=== PATIENT | male | born 1985 | race Caucasian/White ===

== ENCOUNTER 2018-09-01 18:28 | Emergency (ER) | payer MEDICARE, MEDICAID ==
[~2018-09-01] VITALS: Ht 198.1 cm; Wt 117.9 kg
[~2018-09-01 18:28] MED LIST: BENZ100C18 PO; BUDE6HFA IH; CETI10CA PO; CHOL378P PO; CLON1TAB36 PO; CRAN450T9 PO; DIVA500T PO; EPIN0.3P2 IM; ERYT500T8 PO; ESOM20SU PO; FLUT1DIS28 IH; HYDR-1231 PO; IPR14IN INH; LTH150C PO; MELA1TAB20 PO; MMT17NA NS; MNTL10T PO; MULT-557 PO; MULT-974 PO; PANT20TA2 PO; PRD20T PO; SMTR50T PO; SRTR100T PO; TRAM50TA2 PO; TRAZ150T42 PO; TRET15GE2 TP
--- OUTSIDE RECORDS SUMMARY | 2018-09-01 18:35 | XMS REPORT ---
Author Author TED HARDEN [facility] e[employer] Address Unknown Phone Unavailable Care Team Providers Care Show Card Writer Name Role Phone TED HARDEN Unavailable Allergies No Known Allergies Problems Problem Type Condition Code Onset Dates Condition Status Problem Asperger's disorder F84.5 Active Assessment Depressive disorder, not elsewhere classified F32.9 Active Problem Depressive disorder, not elsewhere classified F32.9 Active Assessment Asperger's disorder F84.5 Active Medications No Known Medications Procedures Procedure Coding System Code Date Psychotherapy, patient &/family, 45 minutes, established patient CPT-4 62247 Oct 02, 2015 [facility] VISIT MENT[facility] ESTAB PT CPT-4 G0470 Oct 02, 2015 Results No Known Results Summary Purpose eClinicalWorks Submission
--- OUTSIDE RECORDS SUMMARY | 2018-09-01 18:35 | XMS REPORT ---
Author Author KIM Evans Organization [facility] Address Unknown Care Team Providers Care [employer] Name Role Phone KIM Evans Unavailable PROBLEMS Type Condition ICD9-CM Code [id number] Code Onset Dates Condition Status SNOMED Code Problem Generalized anxiety disorder F41.1 Active 04229500 Problem Anxiety disorder, unspecified F41.9 Active 874392517 Problem Depressive disorder, not elsewhere classified F32.9 Active 03282762 Problem Encounter for dental examination Z01.20 Active 141214142 Problem Asperger's disorder F84.5 Active [id number] ALLERGIES No Information SOCIAL HISTORY Never Assessed PLAN OF CARE VITAL SIGNS MEDICATIONS Unknown Medications RESULTS No Results PROCEDURES No Known procedures IMMUNIZATIONS No Known Immunizations MEDICAL (GENERAL) HISTORY Type Description Date Medical History unspecified mood disorder Medical History anxiety Medical History bi-polar disorder Medical History autistic Surgical History scope of left knee - zafuta 2013 Surgical History scope of right knee - zafuta 2014 Surgical History colonoscopy 2014
--- OUTSIDE RECORDS SUMMARY | 2018-09-01 18:35 | XMS REPORT ---
Author Author SUZANNE SOUSA [facility] Address [address] [place] [address] Phone Unavailable Care Team Providers Care Process Engineering Intern Name Role Phone SUZANNE SOUSA Unavailable Unavailable PROBLEMS Type Condition ICD9-CM Code LBL38-IU Code Onset Dates Condition Status SNOMED Code Problem Generalized anxiety disorder F41.1 Active 74259662 Problem Anxiety disorder, unspecified F41.9 Active 749531633 Problem Depressive disorder, not elsewhere classified F32.9 Active 23691543 Problem Asperger's disorder F84.5 Active 32483363 ALLERGIES Substance Reaction Event Type Date Status Sulfacetamide-Prednisolone Unknown Drug Allergy Dec, Active Aspirin Unknown Drug Allergy Dec, Active Spectazole Unknown Drug Allergy Dec, Active Sulfa Drug dizziness Non Drug Allergy Dec, Active Bee Venom (honey Bee) Unknown Non Drug Allergy Dec, Active ENCOUNTERS Encounter Location Date Diagnosis [facility] [id number] [place] [address] [id number] Dec, Encounter for dental exam and cleaning w/o abnormal findings Z01.20 [place] [id number] [place] [address] 01859- 7555 Sep, Asperger's disorder F84.5 ; Depressive disorder, not elsewhere classified F32.9 and Anxiety disorder, unspecified F41.9 [place] [id number] [place] [address] 34440- 5312 Jun, Asperger's disorder F84.5 ; Depressive disorder, not elsewhere classified F32.9 and Anxiety disorder, unspecified F41.9 [facility] [id number] [place] [address] 49072- 9823 Jun, Asperger's disorder F84.5 [facility] [id number] [place] [address] 48766- 3126 Apr, Asperger's disorder F84.5 ; Depressive disorder, not elsewhere classified F32.9 and Anxiety disorder, unspecified F41.9 [facility] [id number] [place] [address] 68039- 9066 Apr, [facility] [id number] [place] [address] 68810- 8890 Apr, [facility] [id number] [place] [address] 01543- 0951 Dec, Asperger's disorder F84.5 ; Depressive disorder, not elsewhere classified F32.9 and Anxiety disorder, unspecified F41.9 [facility] [id number] [place] [address] 75068- 1229 Dec, Asperger's disorder F84.5 [facility] [id number] [place] [address] 59956- 4209 Nov, [facility] [id number] [place] [address] 59932- 5881 Nov, [facility] [id number] [place] [address] [id number] Aug, Dental examination Z01.20 [facility] [id number] [place] [address] 62329- 1043 Jul, Asperger's disorder F84.5 and Major depressive disorder, recurrent episode with anxious distress F33.9 [facility] [id number] [place] [address] 17216- 1997 Jun, [facility] [id number] [place] [address] [id number] May, Dental examination Z01.20 [facility] [id number] [place] [address] 70009- 4787 Apr, Asperger's disorder F84.5 ; Depressive disorder, not elsewhere classified F32.9 and Anxiety disorder, unspecified F41.9 [facility] [id number] [place] [address] 55331- 4399 Feb, [facility] [address], [place] [address] 6254 January, Asperger's disorder F84.5 ; Depressive disorder, not elsewhere classified F32.9 and Anxiety disorder, unspecified F41.9 [facility] [id number] [place] [address] 98923- 3420 January, Asperger's disorder F84.5 ; Depressive disorder, not elsewhere classified F32.9 and Anxiety disorder, unspecified F41.9 [facility] [id number] [place] [address] 50053- 9055 Dec, Depressive disorder, not elsewhere classified F32.9 and Asperger's disorder F84.5 [facility] [address] [id number] Nov, Encounter for dental examination Z01.20 [facility] [id number] [place] [address] 48736- 7019 Nov, Depressive disorder, not elsewhere classified F32.9 and Asperger's disorder F84.5 [facility] [id number] [place] [address] 08040- 6989 Nov, Depressive disorder, not elsewhere classified F32.9 and Asperger's disorder F84.5 [facility] [address], [place] [address]- 9802 Oct, [facility] [id number] [place] [address] 87812- 9919 Oct, [facility] [id number] [place] [address] 92520- 7539 Oct, [facility] [id number] [place] [address] 11167- 8250 Oct, [facility] [address], [place] [address]- 4025 Oct, Asperger's disorder F84.5 ; Depressive disorder, not elsewhere classified F32.9 and Anxiety disorder, unspecified F41.9 [facility] [id number], [place] [address]- 2471 Oct, [facility] [id number] [place] [address] 23593- 9336 Oct, [facility] [id number] [place] [address] 25081- 8661 Oct, Depressive disorder, not elsewhere classified F32.9 and Asperger's disorder F84.5 [facility] [id number] [place] [address] 69148- 4743 Sep, [facility] [id number] [place] [address] 83821- 6178 Sep, Depressive disorder, not elsewhere classified F32.9 and Asperger's disorder F84.5 [facility] [id number] [place] [address] 00763- 8838 Aug, [facility] [id number] [place] [address] 76105- 4338 Aug, Depressive disorder, not elsewhere classified F32.9 and Asperger's disorder F84.5 [facility] [address], [place] [address]- 7997 Aug, [facility] [address], [place] [address]- 2490 Aug, Asperger's disorder F84.5 ; Depressive disorder, not elsewhere classified F32.9 and Anxiety disorder, unspecified F41.9 [facility] [id number], [place] [address]- 0497 Aug, [facility] [id number] [place] [address] 98282- 6712 Aug, Depressive disorder, not elsewhere classified F32.9 and Asperger's disorder F84.5 [facility] [id number] [place] [address] 05122- 0862 Jul, Depressive disorder, not elsewhere classified F32.9 ; Asperger's disorder F84.5 and Anxiety disorder, unspecified F41.9 [facility] [id number] [place] [address] 13878- 7628 Jul, Depressive disorder, not elsewhere classified F32.9 and Asperger's disorder F84.5 [facility] [id number] [place] [address] 78769- 8277 Jun, Depressive disorder, not elsewhere classified F32.9 and Asperger's disorder F84.5 [facility] [id number] [place] [address] 338851- 9601 Jun, Depressive disorder, not elsewhere classified F32.9 and Asperger's disorder F84.5 [facility] [id number] [place] [address] [id number] May, Dental examination V72.2 [facility] [id number] [place] [address] 88518- 9952 17 May, 2015 Depressive disorder, not elsewhere classified 311 and Asperger's disorder 299.80 [facility] [id number] [place] [address] 61733- 1710 May, [facility] [id number] [place] [address] 85356- 7656 May, Depressive disorder, not elsewhere classified 311 and Asperger's disorder 299.80 [facility] [id number] [place] [address] 81640- 2449 Apr, Bipolar disorder, unspecified 296.80 and Generalized anxiety disorder 300.02 [facility] [id number] [place] [address] 38814- 2548 Apr, [facility] [id number] [place] [address] 16660- 1675 Apr, Depressive disorder, not elsewhere classified 311 and Asperger's disorder 299.80 [facility] [address] [facility] [id number] [address]- 6630 Mar, [facility] [address] 2630 Mar, Depressive disorder, not elsewhere classified 311 and Asperger's disorder 299.80 [facility] [id number], [place] [address]- 6251 Mar, [facility] [id number], [place] [address]- 8830 Feb, [facility] [id number] 1324 Feb, Depressive disorder, not elsewhere classified 311 and Asperger's disorder 299.80 [facility] [address], [place] [address]- 4640 January, Depressive disorder, not elsewhere classified 311 and Asperger's disorder 299.80 [facility] [address], [place] [address]- 2760 January, Bipolar disorder, unspecified 296.80 and Generalized anxiety disorder 300.02 [facility] [address], [place] [address]- 3882 January, [facility] [address], [place] [address]- 4466 Dec, [facility] [address], [place] [address]- 3922 Dec, [facility] [id number], [place] [address]- 8500 Nov, [facility] [address] [address] 6616 Nov, [facility] [id number], [place] [address]- 0061 Nov, [facility] [address], [place] [address]- 7966 Nov, [facility] [place] [facility] [address] [id number] [place] [address]- 6707 Nov, [facility] [place] [facility] [address] [id number] [place] [address]- 4656 Nov, [facility] [place] [facility] [address] [id number] [place] [address]- 3656 Oct, [facility] [place] [facility] [address] [id number] [place] [address]- 8952 Oct, [facility] [place] [facility] [address] [id number] [place] [address]- 4313 Oct, [facility] [place] [facility] [address] [id number] [place] [address]- 8457 Oct, [facility] [place] [facility] [address] [id number] [place] [address]- 8532 Oct, [facility] [place] [facility] [address] [id number] [place] [address]- 7386 Oct, [facility] [place] [facility] [address] [id number] [place] [address]- 2485 Sep, [facility] [place] [facility] [address] [id number] [place] [address]- 1981 Sep, [facility] [place] [facility] [address] [id number] [place] [address]- 5170 Sep, [facility] [place] [facility] [address] [id number] [place] [address]- 4794 Sep, [facility] [place] [facility] [address] [id number] [place] [address]- 3693 Sep, [facility] [place] [facility] [address] [id number] [place] [address]- 7057 Sep, [facility] [place] [facility] [address] [id number] [place] [address]- 8080 Aug, [facility] [place] [facility] [address] [id number] [place] [address]- 6391 Aug, [facility] [place] [facility] [address] [id number] [place] [address]- 9600 Aug, [facility] [place] [facility] [address] [id number] [place] [address]- 8896 Aug, [facility] [place] [facility] [address] [id number] [place] [address]- 4722 Aug, [facility] [place] [facility] [address] [id number] [place] [address]- 1022 Aug, [facility] [place] [facility] [address] [id number] [place] [address]- 6974 Aug, [facility] [place] [facility] [address] [id number] [place] [address]- 9894 Aug, [facility] [place] [facility] [address] [id number] [place] [address]- 8226 Jul, [facility] [place] [facility] [address] [id number] [place] [address]- 5272 Jul, [facility] [place] [facility] [address] [id number] [place] [address]- 8699 Jul, [facility] [place] [facility] [address] [id number] [place] [address]- 2086 Jul, [facility] [place] [facility] [address] [id number] [place] [address]- 2844 Jun, [facility] [place] [facility] [address] [id number] [place] [address]- 9978 Jun, [facility] [place] [facility] [address] [id number] [place] [address]- 6117 Jun, [facility] [place] [facility] [address] [id number] [place] [address]- 6433 Jun, [facility] [place] [facility] [address] [id number] [place] [address]- 8417 Jun, [facility] [place] [facility] [address] [id number] [place] [address]- 7658 Jun, [facility] [place] [facility] [address] [id number] [place] [address]- 4761 May, [facility] [place] [facility] [address] [id number] [place] [address]- 1851 May, [facility] [place] [facility] [address] [id number] [place] [address]- 9758 May, [facility] [place] [facility] [address] [id number] [place] [address]- 3213 May, [facility] [place] [facility] [address] [id number] [place] [address]- 7302 Apr, [facility] [place] [facility] [address] [id number] [place] [address]- 9744 Apr, [facility] [place] [facility] [address] [id number] [place] [address]- 3965 Apr, [facility] [place] [facility] [address] [id number] [place] [address]- 0528 Apr, [facility] [place] [facility] [address] [id number] [place] [address]- 3803 Apr, [facility] [place] [facility] [address] [id number] [place] [address]- 8838 Apr, [facility] [place] [facility] [address] [id number] [place] [address]- 4239 Mar, [facility] [place] [facility] [address] [id number] [place] [address]- 4187 Mar, [facility] [place] [facility] [address] [id number] [place] [address]- 0170 Mar, [facility] [place] [facility] [address] [id number] [place] [address]- 0828 Mar, [facility] [place] [facility] [address] [id number] [place] [address]- 1057 Mar, [facility] [place] [facility] [address] [id number] [place] 3954 Mar, [facility] [place] [facility] [address] [id number] [place] [address]- 9144 Mar, [facility] [place] [facility] [address] [id number] [place] [address]- 0921 Mar, [facility] [place] [facility] [address] [id number] [place] [address]- 2839 Feb, [facility] [place] [facility] [address] [id number] [place] [address]- 8988 Feb, [facility] [place] [facility] [address] [id number] [place] [address]- 0066 Feb, [facility] [place] [facility] [address] [id number] [place] [address]- 1160 Feb, [facility] [place] [facility] [address] [id number] [place] [address]- 5059 January, [facility] [place] [facility] [address] [id number] [place] [address]- 6834 January, [facility] [place] [facility] [address] [id number] [place] [address]- 4112 January, [facility] [place] [facility] [address] [id number] [place] [address]- 7800 January, [facility] [place] [facility] [address] [id number] [place] [address]- 9168 January, [facility] [place] [facility] [address] [id number] [place] [address]- 7367 January, [facility] [place] [facility] [address] [id number] [place] [address]- 3182 Dec, [facility] [place] [facility] [address] [id number] [place] [address]- 4787 Dec, [facility] [place] [facility] [address] [id number] [place] [address]- 2157 Dec, [facility] [place] [facility] [address] [id number] [place] [address]- 1288 Dec, [facility] [place] [facility] [address] [id number] [place] [address]- 7689 Dec, [facility] [place] [facility] [address] [id number] [place] [address]- 8912 Dec, [facility] [place] [facility] [address] [id number] [place] [address]- 7877 Dec, [facility] [place] [facility] [address] [id number] [place] [address]- 6048 Dec, [facility] [place] [facility] [address] [id number] [place] [address]- 5070 Nov, [facility] [place] [facility] [address] [id number] [place] [address]- 4472 Nov, [facility] [place] [facility] [address] [id number] [place] [address]- 3120 Nov, [facility] [place] [facility] [address] [id number] [place] [address]- 8360 Nov, [facility] [place] [facility] [address] [id number] [place] [address]- 6372 Nov, [facility] [place] [facility] [address] [id number] [place] [address]- 6867 Nov, [facility] [place] [facility] [address] [id number] [place] [address]- 6807 Nov, [facility] [place] [facility] [address] [id number] [place] [address]- 0130 Nov, [facility] [place] [facility] [address] [id number] [place] [address]- 5541 Oct, [facility] [place] [facility] [address] [id number] [place] [address]- 8429 Oct, [facility] [address] [id number] [place] [address]- 6326 Sep, [facility] [place] [facility] [address] [id number] [place] [address]- 3008 Sep, [facility] [place] [facility] [address] [id number] [place] [address]- 1976 Sep, [facility] [place] [facility] [address] [id number] [place] [address]- 2963 Sep, [facility] [place] [facility] [address] [id number] [place] [address]- 8580 Sep, [facility] [place] [facility] [address] [id number] [place] [address]- 5606 Sep, [facility] [place] [facility] [address] [id number] [place] [address]- 6658 Aug, [facility] [place] [facility] [address] [id number] [place] [address]- 4151 Aug, [facility] [place] [facility] [address] [id number] [place] [address]- 7121 Aug, [facility] [place] [facility] [address] [id number] [place] [address]- 0053 Aug, [facility] [place] [facility] [address] [id number] [place] [address]- 1389 Aug, [facility] [place] [facility] [address] [id number] [place] [address]- 3015 Aug, [facility] [place] [facility] [address] [id number] [place] [address]- 3745 Jul, [facility] [place] [facility] [address] [id number] [place] [address]- 9681 Jul, [facility] [place] [facility] [address] [id number] [place] [address]- 9282 Jul, [facility] [place] [facility] [address] [id number] [place] [address]- 6858 Jul, [facility] [address] [id number] [place] [address]- 8653 Jul, [facility] [place] [facility] [address] [id number] [place] [address]- 3199 Jul, [facility] [address] [id number] [place] [address]- 4753 Jul, [facility] [place] [facility] [address] [id number] [place] [address]- 7532 Jul, [facility] [address] [id number] [place] [address]- 8532 Jun, [facility] [place] [facility] [address] [id number] [place] [address]- 8107 Jun, [facility] [place] [facility] [address] [id number] [place] [address]- 1737 Jun, [facility] [address] [id number] [place] [address]- 7021 Jun, [facility] [place] [facility] [address] [id number] [place] [address]- 0029 Jun, [facility] [address] [id number] [place] [address]- 7079 Jun, [facility] [place] [facility] [address] [id number] [place] [address]- 2701 23 May, 2013 [facility] [place] [facility] [address] [id number] [place] [address]- 6179 19 May, 2013 [facility] [place] [facility] [address] [id number] [place] [address]- 9195 06 May, 2013 [facility] [place] [facility] [address] [id number] [place] [address]- 5392 May, [facility] [place] [facility] [address] [id number] [place] [address]- 4413 Apr, [facility] [address] [id number] [place] [address]- 5418 Apr, [facility] [place] [facility] [address] [id number] [place] [address]- 7558 Apr, [facility] [place] [facility] [address] [id number] [place] [address]- 8790 Mar, [facility] [place] [facility] [address] [id number] [place] [address]- 3692 Mar, [facility] [address] [id number] [place] [address]- 9211 Mar, [facility] [place] [facility] [address] [id number] [place] [address]- 5123 Mar, [facility] [place] [facility] [address] [id number] [place] [address]- 5640 Feb, [facility] [place] [facility] [address] [id number] [place] [address]- 5940 Feb, [facility] [place] [facility] [address] [id number] [place] [address] Feb, [facility] [place] [facility] [address] [id number] [place] [address] Feb, [facility] [place] [facility] [address] [id number] [place] [address] Feb, [facility] [place] [facility] [address] [id number] [place] [address] January, [facility] [place] [facility] [address] [id number] [place] [address] January, [facility] [place] [facility] [address] [id number] [place] [address] January, [facility] [place] [facility] [address] [id number] [place] [address] January, [facility] [place] [facility] [address] [id number], [place] [address] Dec, [facility] [address] [id number] [place] [address] Dec, [facility] [place] [facility] [address] [facility] [id number] [place] [address] Dec, [facility] [place] [facility] [address] [facility] [id number] [place] [address] Nov, [facility] [place] [facility] [address] [id number] [place] [address] Nov, [facility] [place] [facility] [address] [id number] [place] [address] Nov, [facility] [place] [facility] [address] [id number] [place] [address] Oct, [facility] [address] [id number] [place] [address] Oct, [facility] [place] [facility] [address] [facility] [id number] [place] [address] Oct, [facility] [place] [facility] [address] [id number] [place] [address] Oct, [facility] [place] [facility] [address] [id number] [place] [address] Oct, [facility] [place] [facility] [address] [id number] [place] [address] Oct, [facility] [place] [facility] [address] [facility] [id number] [place] [address] Oct, [facility] [place] [facility] [address] [facility] [id number] [place] [address] Sep, [facility] [place] [facility] [address] [facility] [id number] [place] [address] Sep, [facility] [place] [facility] [address] [facility] [id number] [place] [address] Sep, [facility] [place] [facility] [address] [id number] [place] [address] Sep, [facility] [place] [facility] [address] [id number] [place] [address] Sep, [facility] [place] [facility] [address] [id number] [place] [address] Jul, [facility] [place] [facility] [address] [id number] [place] [address] Jul, [facility] [place] [facility] [address] [id number] [place] [address] Jul, [facility] [place] [facility] [address] [id number] [place] [address] Jul, [facility] [place] [facility] [address] [facility] [id number] [place] [address] Jul, [facility] [place] [facility] [address] [id number], [place] [address] Jul, [facility] [place] [facility] [address] [facility] [id number] [place] [address] Jul, [facility] [place] [facility] [address] [facility] [id number], [place] [address] Jun, [facility] [place] [facility] [address] [facility] [id number], [place] [address] Jun, [facility] [place] [facility] [address] [id number], [place] [address] Jun, [facility] [place] [facility] [address] [id number], [place] [address] Jun, [facility] [place] [facility] [address] [id number], [place] [address] Jun, [facility] [place] [facility] [address] [facility] [id number], [place] [address] 15 Jun, 2012 [facility] [place] [facility] [address] [id number], [place] [address] Jun, [facility] [place] [facility] [address] [id number] [place] [address] Jun, [facility] [place] [facility] [address] [id number] [place] [address] May, [facility] [place] [facility] [address] [id number] [place] [address] May, [facility] [place] [facility] [address] [id number] [place] [address] Apr, [facility] [place] [facility] [address] [id number] [place] [address] Apr, [facility] [place] [facility] [address] [id number] [place] [address] Apr, [facility] [place] [facility] [address] [id number] [place] [address] Apr, [facility] [place] [facility] [address] [id number] [place] [address] Mar, [facility] [place] [facility] [address] [id number] [place] [address] Mar, [facility] [place] [facility] [address] [id number] [place] [address] Feb, [facility] [place] [facility] [address] [id number] [place] [address] Feb, [facility] [place] [facility] [address] [id number] [place] [address] Feb, [facility] [place] [facility] [address] [id number] [place] [address] Feb, [facility] [place] [facility] [address] [id number] [place] [address] Feb, [facility] [place] [facility] [address] [facility] [id number] [place] [address] January, [facility] [place] [facility] [address] [id number] [place] [address] January, [facility] [address] [id number] [place] [address] January, [facility] [place] [facility] [address] [id number] [place] [address] January, [facility] [address] [id number] [place] [address] Dec, [facility] [place] [facility] [address] [id number] [place] [address] Dec, [facility] [place] [facility] [address] [id number] [place] [address] Dec, [facility] [place] [facility] [address] [id number] [place] [address] Nov, [facility] [place] [facility] [address] [id number] [place] [address] Oct, [facility] [address] [id number] [place] [address] Oct, [facility] [place] [facility] [address] [id number] [place] [address] Sep, [facility] [place] [facility] [address] [id number] [place] [address] Sep, [facility] [place] [facility] [address] [id number] [place] [address] Sep, [facility] [place] [facility] [address] [id number] [place] [address] Aug, [facility] [place] [facility] [address] [id number] [place] [address] Aug, [facility] [place] [facility] [address] [id number] [place] [address] Aug, [facility] [place] [facility] [address] [id number] [place] [address] Aug, [facility] [address] [facility] [id number], [place] [address] Jul, [facility] [address] [facility] [id number], [place] [address] Jul, [facility] [address] [facility] [id number], [place] [address] Jun, [facility] [id number], [place] [address] Jun, [facility] [address] [facility] [id number], [place] [address] Aug, [facility] [address] [facility] [id number], [place] [address] Jul, IMMUNIZATIONS No Known Immunizations SOCIAL HISTORY Never Assessed REASON FOR VISIT ADULT OUTREACH [facility] PLAN OF CARE Activity Details Follow Up 3 Months Reason:ON SITE RECALL VITAL SIGNS MEDICATIONS Medication Instructions Dosage Frequency Start Date End Date Duration Status ZyrTEC 10 mg 1 Tablet by Oral route 1 time per day Mar, Active Neosporin 1.75-30449-.025 Ophthalmic every 4 hrs 1 null into affected eye 4h Active Tussin 100 MG/5ML Orally every 4 hrs 10 ml as needed 4h Active Tessalon 200 mg 1 Capsule by Oral route 3 times per day PRN cough Oct, Active Milk of Magnesia 400 MG/5ML Orally 2 times a day 30 ml as needed 12h Active Advair HFA by inhalation route PRN 2 puffs q4-6 hrs prn cough Oct, Active Vitamin C 1000 MG Orally 2 times a day 1 tablet 12h Active Acetaminophen 325 mg 1 Tablet by Oral route every 6 hours PRN fever, Oct, Active pantoprazole 40 mg 1 Tablet by Oral route 1 time per day Oct, Active EpiPen 0.3 mg/0.3 mL (1:1,000) PRN bee stings and proceed to ER Feb 30 days Active Singulair 10 mg 1 Tablet by Oral route 1 time per day Mar, Active Clonazepam 1 MG Orally daily 0.5 tablet in morning and 1 tablet at night 24h Jul, Active Cough Drops 8.4 MG Active Hydrocortisone 1 % Rectal Twice a day 1 application to affected area 12h Active Imitrex 50 mg PRN headache, may repeat in 2 hrs, NTC 2 tabs/24 hrs Feb, Active Multivitamins Active Topamax 50 MG Orally once a day 1 tablet 24h Aug, Active Albuterol Sulfate HFA 108 (90 Base) MCG/ACT Inhalation every 4 hrs 2 puffs as needed 4h Active Tums 500 MG Orally Four times a day 1 tablet 6h Active Bentyl 20 mg 1 Tablet by Oral route 3 times per day PRN IBS Aug, Active Advil 200 MG Orally every 6 hrs 1 tablet as needed 6h Active Benadryl 25 MG Orally Once a day PRN sleeplessness 1-2 capsule Active Imodium A-D 2 MG Orally 8 time(s) a day 1 tablet Active Motrin IB 800 Orally 3 times a day 1 tablet as needed 8h Active Trileptal 600 MG Orally twice a day 1 tablet 12h Aug, Active Visine 0.05 % Ophthalmic every 6 hrs 1 drop into affected eye as needed 6h Active Atrovent HFA 17 MCG/ACT Inhalation Four times a day PRN 2 puffs Active RESULTS No Results PROCEDURES Procedure Date Ordered Result Body Site PROPHYLAXIS - ADULT January 05, 2018 TOPICAL FLUORIDE VARNISH January 05, 2018 INSTRUCTIONS MEDICATIONS ADMINISTERED No Known Medications MEDICAL (GENERAL) HISTORY Type Description Date Medical History unspecified mood disorder Medical History anxiety Medical History bi-polar disorder Medical History autistic Surgical History scope of left knee - 2013 Surgical History scope of right knee - 2014 Surgical History colonoscopy 2014
--- OUTSIDE RECORDS SUMMARY | 2018-09-01 18:35 | XMS REPORT ---
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
--- OUTSIDE RECORDS SUMMARY | 2018-09-01 18:35 | XMS REPORT ---
Author Author KIM Evans Organization [facility] Address Unknown Care Team Providers Care Crew Team Member Name Role Phone KIM Evans Unavailable PROBLEMS Type Condition ICD9-CM Code PUB76-AM Code Onset Dates Condition Status SNOMED Code Problem Generalized anxiety disorder F41.1 Active 79647262 Problem Anxiety disorder, unspecified F41.9 Active 557421018 Problem Depressive disorder, not elsewhere classified F32.9 Active 96962107 Problem Encounter for dental examination Z01.20 Active 886993020 Problem Asperger's disorder F84.5 Active 65664286 ALLERGIES Substance Reaction Event Type Date Status Sulfacetamide-Prednisolone Unknown Drug Allergy Dec, Active Aspirin Unknown Drug Allergy Dec, Active Spectazole Unknown Drug Allergy Dec, Active Sulfa Drug dizziness Non Drug Allergy Dec, Active Bee Venom (honey Bee) Unknown Non Drug Allergy Dec, Active SOCIAL HISTORY Never Assessed PLAN OF CARE Activity Details Follow Up 3 Months Reason: VITAL SIGNS Height 78 in 2017-01-10 Weight 226.4 lbs 2017-01-10 Heart Rate 84 bpm 2017-01-10 Respiratory Rate 20 2017-01-10 BMI 26.16 kg/m2 2017-01-10 Blood pressure systolic 120 mmHg 2017-01-10 Blood pressure diastolic 73 mmHg 2017-01-10 MEDICATIONS Medication Instructions Dosage Frequency Start Date End Date Duration Status Topamax 50 MG Orally once a day 1 tablet 24h Aug, 30 days Active Acetaminophen 325 mg 1 Tablet by Oral route every 6 hours PRN fever, Oct, Active Hydrocortisone 1 % Rectal Twice a day 1 application to affected area 12h Active Multivitamins Active Neosporin 1.75-95222-.025 Ophthalmic every 4 hrs 1 null into affected eye 4h Active Singulair 10 mg 1 Tablet by Oral route 1 time per day Mar, Active Ambien 10 MG Orally Once a day 1 tablet at bedtime 24h Jul, 30 days Active Cough Drops 8.4 MG Active Clonazepam 1 MG Orally Twice a day 1 tablet 12h Jul, 30 days Active ZyrTEC 10 mg 1 Tablet by Oral route 1 time per day Mar, Active Zoloft 50 MG Orally Once a day 1 tablet 24h Oct, 30 days Active Imodium A-D 2 MG Orally 8 time(s) a day 1 tablet Active Visine 0.05 % Ophthalmic every 6 hrs 1 drop into affected eye as needed 6h Active Bentyl 20 mg 1 Tablet by Oral route 3 times per day PRN IBS Aug, Active Atrovent HFA 17 MCG/ACT Inhalation Four times a day PRN 2 puffs Active pantoprazole 40 mg 1 Tablet by Oral route 1 time per day Oct, Active Benadryl 25 MG Orally Once a day PRN sleeplessness 1-2 capsule Active Milk of Magnesia 400 MG/5ML Orally 2 times a day 30 ml as needed 12h Active Imitrex 50 mg PRN headache, may repeat in 2 hrs, NTC 2 tabs/24 hrs Feb, Active Tessalon 200 mg 1 Capsule by Oral route 3 times per day PRN cough Oct, Active Vitamin C 1000 MG Orally 2 times a day 1 tablet 12h Active Motrin IB 800 Orally 3 times a day 1 tablet as needed 8h Active Advil 200 MG Orally every 6 hrs 1 tablet as needed 6h Active Albuterol Sulfate HFA 108 (90 Base) MCG/ACT Inhalation every 4 hrs 2 puffs as needed 4h Active Advair HFA by inhalation route PRN 2 puffs q4-6 hrs prn cough Oct, Active Tussin 100 MG/5ML Orally every 4 hrs 10 ml as needed 4h Active EpiPen 0.3 mg/0.3 mL (1:1,000) PRN bee stings and proceed to ER Feb 30 days Active Trileptal 600 MG Orally twice a day 1 tablet 12h Aug, 30 days Active Tums 500 MG Orally Four times a day 1 tablet 6h Active RESULTS No Results PROCEDURES Procedure Date Ordered Result Body Site [facility] VISIT ESTABLISHED PATIENT January 10, 2017 IMMUNIZATIONS No Known Immunizations MEDICAL (GENERAL) HISTORY Type Description Date Medical History unspecified mood disorder Medical History anxiety Medical History bi-polar disorder Medical History autistic Surgical History scope of left knee - ta 2013 Surgical History scope of right knee - 2014 Surgical History colonoscopy 2014
--- OUTSIDE RECORDS SUMMARY | 2018-09-01 18:37 | XMS REPORT ---
Author Author TED HARDEN [facility] [employer] Address Unknown Phone Unavailable Care Team Providers Care Manager Personnel Selection Name Role Phone TED HARDEN Unavailable Allergies No Known Allergies Problems Problem Type Condition Code Onset Dates Condition Status Problem Asperger's disorder F84.5 Active Assessment Depressive disorder, not elsewhere classified F32.9 Active Problem Depressive disorder, not elsewhere classified F32.9 Active Assessment Asperger's disorder F84.5 Active Medications No Known Medications Procedures Procedure Coding System Code Date Psychotherapy, patient &/family, 45 minutes, established patient CPT-4 23555 Aug 08, 2015 [facility] VISIT MENTAL HEALTH ESTAB PT CPT-4 G0470 Aug 08, 2015 Results No Known Results Summary Purpose [employer] Submission
--- OUTSIDE RECORDS SUMMARY | 2018-09-01 18:37 | XMS REPORT ---
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 [id number] [place] [address] [id number] Dec, Encounter for dental exam and cleaning w/o abnormal findings Z01.20 [facility] [id number] [place] [address] 45995- 7526 Sep, Asperger's disorder F84.5 ; Depressive disorder, not elsewhere classified F32.9 and Anxiety disorder, unspecified F41.9 [facility] [id number] [place] [address] 07292- 0709 Jun, Asperger's disorder F84.5 ; Depressive disorder, not elsewhere classified F32.9 and Anxiety disorder, unspecified F41.9 [facility] [id number] [place] [address] 28508- 8171 Jun, Asperger's disorder F84.5 [facility] [id number] [place] [address] 19995- 1849 Apr, Asperger's disorder F84.5 ; Depressive disorder, not elsewhere classified F32.9 and Anxiety disorder, unspecified F41.9 [facility] [id number] [place] [address] 19378- 1211 Apr, [facility] [address] [address] 0930 Apr, [facility] [id number] [place] [address] 01715- 7430 Dec, Asperger's disorder F84.5 ; Depressive disorder, not elsewhere classified F32.9 and Anxiety disorder, unspecified F41.9 [facility] [id number] [place] [address] 08777- 3701 Dec, Asperger's disorder F84.5 [facility] [id number] [place] [address] 43080- 8092 Nov, [facility] [id number] [place] [address] 58005- 2329 Nov, [facility] [id number] [place] [address] [id number] Aug, Dental examination Z01.20 [facility] [id number] [place] [address] 19427- 1120 Jul, Asperger's disorder F84.5 and Major depressive disorder, recurrent episode with anxious distress F33.9 [facility] [address], [place] [address] 06[address] Jun, [facility] [id number] [place] [address] [id number] May, Dental examination Z01.20 [facility] [id number] [place] [address] 51004- 1985 Apr, Asperger's disorder F84.5 ; Depressive disorder, not elsewhere classified F32.9 and Anxiety disorder, unspecified F41.9 [facility] [address] [address]- 0009 Feb, [facility] [id number] [place] [address] 08453- 3534 January, Asperger's disorder F84.5 ; Depressive disorder, not elsewhere classified F32.9 and Anxiety disorder, unspecified F41.9 [facility] [id number] [place] [address] 97545- 0343 January, Asperger's disorder F84.5 ; Depressive disorder, not elsewhere classified F32.9 and Anxiety disorder, unspecified F41.9 [facility] [id number] [place] [address] 33191- 8104 Dec, Depressive disorder, not elsewhere classified F32.9 and Asperger's disorder F84.5 [facility] [id number] [place] [address] [id number] Nov, Encounter for dental examination Z01.20 [facility] [id number] [place] [address] 87825- 8191 Nov, Depressive disorder, not elsewhere classified F32.9 and Asperger's disorder F84.5 [facility] [id number] [place] [address] 06004- 2557 Nov, Depressive disorder, not elsewhere classified F32.9 and Asperger's disorder F84.5 [facility] [id number] [place] [address] 62534- 7843 Oct, [facility] [id number] [place] [address] 57733- 5211 Oct, [facility] [id number] [place] [address] 73039- 2027 Oct, [facility] [id number] [place] [address] 55991- 2179 Oct, [facility] [id number] [place] [address] 34331- 7868 Oct, Asperger's disorder F84.5 ; Depressive disorder, not elsewhere classified F32.9 and Anxiety disorder, unspecified F41.9 [facility] [id number] [place] [address] 83623- 4922 Oct, [facility] [address] [facility] [id number], [place] [address]- 7389 Oct, [facility] [address] [facility] [id number] [place] [address] 02421- 9746 Oct, Depressive disorder, not elsewhere classified F32.9 and Asperger's disorder F84.5 [facility] [id number] [place] [address] 00969- 1581 Sep, [facility] [address] [facility] [id number] [place] [address] 23392- 7493 Sep, Depressive disorder, not elsewhere classified F32.9 and Asperger's disorder F84.5 [facility] [id number], [place] [address]- 2349 Aug, [facility] [id number] [place] [address] 77812- 3794 Aug, Depressive disorder, not elsewhere classified F32.9 and Asperger's disorder F84.5 [facility] [address] [id number], [place] [address]- 1773 Aug, [facility] [id number], [place] [address]- 9996 Aug, Asperger's disorder F84.5 ; Depressive disorder, not elsewhere classified F32.9 and Anxiety disorder, unspecified F41.9 [facility] [address] [id number], [place] [address]- 8500 Aug, [facility] [address] [facility] [id number], [place] [address]- 6283 Aug, Depressive disorder, not elsewhere classified F32.9 and Asperger's disorder F84.5 [facility] [address] [facility] [id number], [place] [address]- 2207 Jul, Depressive disorder, not elsewhere classified F32.9 ; Asperger's disorder F84.5 and Anxiety disorder, unspecified F41.9 [facility] [address], [place] [address]- 6038 Jul, Depressive disorder, not elsewhere classified F32.9 and Asperger's disorder F84.5 [facility] [id number] [place] [address] 39613- 9919 Jun, Depressive disorder, not elsewhere classified F32.9 and Asperger's disorder F84.5 [facility] [id number] [place] [address] 20569- 3308 Jun, Depressive disorder, not elsewhere classified F32.9 and Asperger's disorder F84.5 [facility] [id number] [place] [address] [id number] May, Dental examination V72.2 [facility] [id number] [place] [address] 31465- 0103 May, Depressive disorder, not elsewhere classified 311 and Asperger's disorder 299.80 [facility] [id number] [place] [address] 37174- 0989 May, [facility] [id number] [place] [address] 61686- 8407 May, Depressive disorder, not elsewhere classified 311 and Asperger's disorder 299.80 [facility] [id number] [place] [address] 77322- 3424 Apr, Bipolar disorder, unspecified 296.80 and Generalized anxiety disorder 300.02 [facility] [id number] [place] [address] 15509- 9804 Apr, [facility] [id number] [place] [address] 46053- 3302 Apr, Depressive disorder, not elsewhere classified 311 and Asperger's disorder 299.80 [facility] [id number] [place] [address] 53627- 7890 Mar, [facility] [id number] [place] [address] [id number]- 3184 Mar, Depressive disorder, not elsewhere classified 311 and Asperger's disorder 299.80 [facility] [address] 9176 Mar, [facility] [address] 2576 Feb, [facility] [id number] [place] [address] 301760- 5823 Feb, Depressive disorder, not elsewhere classified 311 and Asperger's disorder 299.80 [facility] [id number] [place] [address] 427090- 7332 January, Depressive disorder, not elsewhere classified 311 and Asperger's disorder 299.80 [facility] [address] 9829 January, Bipolar disorder, unspecified 296.80 and Generalized anxiety disorder 300.02 [facility] [address], [place] [address]- 3917 January, [facility] [address], [place] [address]- 5234 Dec, [facility] [address], [place] [address]- 6235 Dec, [facility] [address], [place] [address]- 2723 Nov, [facility] [address], [place] [address]- 9965 Nov, [facility] [address] 0223 Nov, [facility] [address] 8068 Nov, [facility] [address] 0418 Nov, [facility] [address] [facility] [id number] [place] [address]- 6037 Nov, [facility] [place] [facility] [address] [id number] [place] [address]- 8625 Oct, [facility] [place] [facility] [address] [id number] [place] [address]- 2396 Oct, [facility] [place] [facility] [address] [id number] [place] [address]- 6945 Oct, [facility] [place] [facility] [address] [id number] [place] [address]- 2137 Oct, [facility] [place] [facility] [address] [id number] [place] [address]- 5659 Oct, [facility] [place] [facility] [address] [id number] [place] [address]- 9978 Oct, [facility] [place] [facility] [address] [id number] [place] [address]- 0523 Sep, [facility] [place] [facility] [address] [id number] [place] [address]- 8103 Sep, [facility] [place] [facility] [address] [facility] [id number] [place] [address]- 3254 Sep, [facility] [place] [facility] [address] [id number] [place] [address]- 9897 Sep, [facility] [place] [facility] [address] [id number] [place] [address]- 4418 Sep, [facility] [place] [facility] [address] [id number] [place] [address]- 9251 Sep, [facility] [place] [facility] [address] [id number] [place] [address]- 8046 Aug, [facility] [place] [facility] [address] [id number] [place] [address]- 5011 Aug, [facility] [place] [facility] [address] [id number] [place] [address]- 1094 Aug, [facility] [place] [facility] [address] [id number] [place] 5199 Aug, [facility] [place] [facility] [address] [id number] [place] [address]- 2946 Aug, [facility] [place] [facility] [address] [id number] [place] [address]- 9643 Aug, [facility] [place] [facility] [address] [id number] [place] [address]- 9759 Aug, [facility] [place] [facility] [address] [id number] [place]- 0377 Aug, [facility] [place] [facility] [address] [id number] [place] [address]- 4007 Jul, [facility] [place] [facility] [address] [id number] [place] [address]- 4057 Jul, [facility] [place] [facility] [address] [id number] [place] [address]- 4555 Jul, [facility] [place] [facility] [address] [id number] [place] [address]- 5568 Jul, [facility] [place] [facility] [address] [id number] [place] [address]- 0626 Jun, [facility] [place] [facility] [address] [id number], [place] [address]- 6603 Jun, [facility] [place] [facility] [address] [id number], [place] [address]- 1865 Jun, [facility] [place] [facility] [address] [id number] [place] [address]- 2131 Jun, [facility] [place] [facility] [address] [id number] [place] [address]- 1436 Jun, [facility] [place] [facility] [address] [id number] [place] 8580 Jun, [facility] [place] [facility] [address] [id number] [place] [address]- 3087 May, [facility] [place] [facility] [address] [id number] [place] [address]- 1560 May, [facility] [place] [facility] [address] [id number] [place] [address]- 9816 May, [facility] [place] [facility] [address] [id number] [place] [address]- 0321 May, [facility] [place] [facility] [address] [id number] [place] [address]- 3412 Apr, [facility] [place] [facility] [address] [id number] [place] [address]- 7779 Apr, [facility] [place] [facility] [address] [id number] [place] [address]- 6086 Apr, [facility] [place] [facility] [address] [id number] [place] [address]- 0310 Apr, [facility] [place] [facility] [address] [id number] [place] [address]- 3937 Apr, [facility] [place] [facility] [address] [id number] [place] [address]- 8209 Apr, [facility] [place] [facility] [address] [id number] [place] [address]- 1211 Mar, [facility] [place] [facility] [address] [id number] [place] [address]- 4060 Mar, [facility] [place] [facility] [address] [id number] [place] [address]- 3772 Mar, [facility] [place] [facility] [address] [id number] [place] [address]- 9642 Mar, [facility] [place] [facility] [address] [id number] [place] [address]- 0179 Mar, [facility] [place] [facility] [address] [id number] [place] [address]- 4288 Mar, [facility] [place] [facility] [address] [id number] [place] [address]- 0049 Mar, [facility] [place] [facility] [address] [id number] [place] [address]- 2041 Mar, [facility] [place] [facility] [address] [id number] [place] [address]- 1791 Feb, [facility] [place] [facility] [address] [id number] [place] [address]- 6699 Feb, [facility] [place] [facility] [address] [id number] [place] [address]- 5014 Feb, [facility] [place] [facility] [address] [id number] [place] [address]- 1172 Feb, [facility] [place] [facility] [address] [id number] [place] [address]- 6193 January, [facility] [place] [facility] [address] [id number] [place] [address]- 0347 January, [facility] [place] [facility] [address] [id number] [place] [address]- 1801 January, [facility] [place] [facility] [address] [id number] [place] [address]- 8646 January, [facility] [place] [facility] [address] [id number] [place] [address]- 6131 January, [facility] [place] [facility] [address] [id number] [place] [address]- 1934 January, [facility] [place] [facility] [address] [id number] [place] [address]- 2785 Dec, [facility] [place] [facility] [address] [id number] [place] [address]- 2549 Dec, [facility] [place] [facility] [address] [id number] [place] [address]- 4469 Dec, [facility] [place] [facility] [address] [id number] [place] [address]- 9572 Dec, [facility] [place] [facility] [address] [id number] [place] [address]- 1663 Dec, [facility] [place] [facility] [address] [id number] [place] [address]- 3940 Dec, [facility] [place] [facility] [address] [id number] [place] [address]- 5521 Dec, [facility] [place] [facility] [address] [id number] [place] [address]- 6471 Dec, [facility] [place] [facility] [address] [id number] [place] [address]- 7424 Nov, [facility] [place] [facility] [address] [id number] [place] [address]- 0466 Nov, [facility] [place] [facility] [address] [facility] [id number] [place] [address]- 5733 Nov, [facility] [place] [facility] [address] [id number] [place] [address]- 2157 Nov, [facility] [place] [facility] [address] [id number] [place] [address]- 3318 Nov, [facility] [place] [facility] [address] [facility] [id number] [place] [address]- 3106 Nov, [facility] [place] [facility] [address] [id number] [place] [address]- 3005 Nov, [facility] [place] [facility] [address] [facility] [id number] [place] [address]- 2962 Nov, [facility] [place] [facility] [address] [id number] [place] [address]- 3722 Oct, [facility] [place] [facility] [address] [id number] [place] [address]- 8984 Oct, [facility] [place] [facility] [address] [facility] [id number] [place] [address]- 3750 Sep, [facility] [place] [facility] [address] [id number] [place] [address]- 7588 Sep, [facility] [place] [facility] [address] [id number] [place] [address]- 9943 Sep, [facility] [place] [facility] [address] [id number] [place] [address]- 5086 Sep, [facility] [place] [facility] [address] [id number] [place] [address]- 4868 Sep, [facility] [place] [facility] [address] [id number] [place] [address]- 5823 Sep, [facility] [place] [facility] [address] [id number] [place] [address]- 8557 Aug, [facility] [place] [facility] [address] [id number] [place] [address]- 1097 Aug, [facility] [place] [facility] [address] [id number] [place] [address]- 8883 Aug, [facility] [place] [facility] [address] [id number] [place] [address]- 1433 Aug, [facility] [place] [facility] [address] [id number] [place] [address]- 4442 Aug, [facility] [place] [facility] [address] [id number] [place] [address]- 6332 Aug, [facility] [place] [facility] [address] [id number] [place] [address]- 3479 Jul, [facility] [place] [facility] [address] [id number] [place] [address]- 3416 Jul, [facility] [place] [facility] [address] [id number] [place] [address]- 0186 Jul, [facility] [place] [facility] [address] [id number] [place] [address]- 5872 Jul, [facility] [place] [facility] [address] [id number] [place] [address]- 8719 Jul, [facility] [place] [facility] [address] [id number] [place] [address]- 0381 Jul, [facility] [place] [facility] [address] [id number] [place] [address]- 7344 Jul, [facility] [place] [facility] [address] [id number] [place] [address]- 7040 Jul, [facility] [place] [facility] [address] [id number] [place] [address]- 3812 Jun, [facility] [place] [facility] [address] [id number] [place] [address]- 2957 Jun, [facility] [place] [facility] [address] [id number] [place] [address]- 5974 Jun, [facility] [place] [facility] [address] [id number] [place] [address]- 1874 Jun, [facility] [place] [facility] [address] [id number] [place] [address]- 1587 Jun, [facility] [place] [facility] [address] [id number] [place] [address]- 7487 Jun, [facility] [place] [facility] [address] [id number] [place] [address]- 5366 May, [facility] [place] [facility] [address] [id number], [place] [address]- 5166 May, [facility] [place] [facility] [address] [id number], [place] [address]- 7897 May, [facility] [place] [facility] [address] [id number] [place] [address] May, [facility] [place] [facility] [address] [id number] [place] [address] Apr, [facility] [place] [facility] [address] [id number] [place] [address] Apr, [facility] [place] [facility] [address] [id number] [place] [address] Apr, [facility] [address] [id number] [place] [address] Mar, [facility] [address] [id number] [place] [address] Mar, [facility] [address] [id number] [place] [address] Mar, [facility] [address] [id number] [place] [address] Mar, [facility] [address] [id number] [place] [address] Feb, [facility] [address] [id number] [place] [address] Feb, [facility] [address] [id number] [place] [address] Feb, [facility] [address] [id number] [place] [address] Feb, [facility] [address] [id number] [place] [address] Feb, [facility] [address] [id number] [place] [address] January, [facility] [address] [id number] [place] [address] January, [facility] [address] [id number] [place] [address] January, [facility] [address] [id number] [place] [address] January, [facility] [address] [id number] [place] [address] Dec, [facility] [address] [id number] [place] [address] Dec, [facility] [address] [id number] [place] [address] Dec, [facility] [address] [id number] [place] [address] Nov, [facility] [address] [id number] [place] [address] Nov, [facility] [place] [facility] [address] [id number] [place] [address] Nov, [facility] [address] [id number] [place] [address] Oct, [facility] [place] [facility] [address] [id number] [place] [address] Oct, [facility] [address] [id number] [place] [address] Oct, [facility] [address] [id number] [place] [address] Oct, [facility] [address] [id number] [place] [address] Oct, [facility] [address] [id number] [place] [address] Oct, [facility] [place] [facility] [address] [id number], [place] [address] Oct, [facility] [place] [facility] [address] [id number], [place] [address] Sep, [facility] [place] [facility] [address] [id number] [place] [address] Sep, [facility] [place] [facility] [address] [id number], [place] [address] Sep, [facility] [place] [facility] [address] [id number] [place] [address] Sep, [facility] [place] [facility] [address] [id number] [place] [address] Sep, [facility] [place] [facility] [address] [id number] [place] [address] Jul, [facility] [place] [facility] [address] [id number] [place] [address] Jul, [facility] [place] [facility] [address] [id number] [place] [address] Jul, [facility] [place] [facility] [address] [id number] [place] [address] Jul, [facility] [place] [facility] [address] [id number] [place] [address] Jul, [facility] [place] [facility] [address] [id number] [place] [address] Jul, [facility] [place] [facility] [address] [facility] [id number] [place] [address] Jul, [facility] [place] [facility] [address] [id number] [place] [address] Jun, [facility] [place] [facility] [address] [facility] [id number] [place] [address] Jun, [facility] [place] [facility] [address] [facility] [id number] [place] [address] Jun, [facility] [place] [facility] [address] [id number] [place] [address] Jun, [facility] [place] [facility] [address] [facility] [id number], [place] [address] 18 Jun, 2012 [facility] [place] [facility] [address] [id number] [place] [address] Jun, [facility] [place] [facility] [address] [facility] [id number] [place] [address] Jun, [facility] [place] [facility] [address] [id number] [place] [address] Jun, [facility] [place] [facility] [address] [id number] [place] [address] May, [facility] [place] [facility] [address] [id number] [place] [address] May, [facility] [place] [facility] [address] [id number] [place] [address] Apr, [facility] [place] [facility] [address] [id number] [place] [address] Apr, [facility] [place] [facility] [address] [id number] [place] [address] Apr, [facility] [place] [facility] [address] [id number] [place] [address] Apr, [facility] [place] [facility] [address] [id number] [place] [address] Mar, [facility] [place] [facility] [address] [id number] [place] [address] Mar, [facility] [place] [facility] [address] [id number] [place] [address] Feb, [facility] [place] [facility] [address] [id number] [place] [address] Feb, [facility] [place] [facility] [address] [id number] [place] [address] Feb, [facility] [place] [facility] [address] [id number] [place] [address] Feb, [facility] [place] [facility] [address] [id number] [place] [address] Feb, [facility] [place] [facility] [address] [id number] [place] [address] January, [facility] [place] [facility] [address] [id number] [place] [address] January, [facility] [place] [facility] [address] [id number] [place] [address] January, [facility] [address] [id number] [place] [address] January, [facility] [address] [id number] [place] [address] Dec, [facility] [address] [id number] [place] [address] Dec, [facility] [place] [facility] [address] [id number] [place] [address] Dec, [facility] [address] [id number] [place] [address] Nov, [facility] [place] [facility] [address] [id number] [place] [address] Oct, [facility] [address] [id number] [place] [address] Oct, [facility] [place] [facility] [address] [id number] [place] [address] Sep, [facility] [address] [id number] [place] [address] Sep, [facility] [address] [facility] [id number] [place] [address] Sep, [facility] [address] [id number] [place] [address] Aug, [facility] [place] [facility] [address] [id number] [place] [address] Aug, [facility] [place] [facility] [address] [id number] [place] [address] 14 Aug, 2010 [facility] [place] [facility] [address] [id number] [place] [address] Aug, [facility] [place] [facility] [address] [facility] [id number] [place] [address] Jul, [facility] [place] [facility] [address] [facility] [id number] [place] [address] Jul, [facility] [address] [id number] [address] Jun, [facility] [address] [id number], [place] [address] Jun, [facility] [address] [id number], [place] [address] Aug, [facility] [address] [id number] [address] Jul, IMMUNIZATIONS No Known Immunizations SOCIAL HISTORY Never Assessed REASON FOR VISIT Refill request PLAN OF CARE VITAL SIGNS MEDICATIONS No Known Medications RESULTS No Results PROCEDURES No Known procedures INSTRUCTIONS MEDICATIONS ADMINISTERED No Known Medications MEDICAL (GENERAL) HISTORY Type Description Date Medical History unspecified mood disorder Medical History anxiety Medical History bi-polar disorder Medical History autistic Surgical History scope of left knee - zafuta 2013 Surgical History scope of right knee - zafuta 2014 Surgical History colonoscopy 2014
--- OUTSIDE RECORDS SUMMARY | 2018-09-01 18:37 | XMS REPORT ---
Author Author KIM BORGES [facility] eClinicalWorks Address Unknown Phone Unavailable Care Team Providers Care Lithoplate Maker Name Role Phone KIM BORGES Unavailable Allergies, Adverse Reactions, Alerts Substance Reaction Event Type Sulfacetamide-Prednisolone Info Not Available Drug Allergy Aspirin Info Not Available Drug Allergy Spectazole Info Not Available Drug Allergy Sulfa Drug dizziness Non Drug Allergy Bee Venom (honey Bee) Info Not Available Non Drug Allergy Problems Problem Type Condition Code Onset Dates Condition Status Problem Asperger's disorder F84.5 Active Assessment Asperger's disorder F84.5 Active Problem Depressive disorder, not elsewhere classified F32.9 Active Assessment Depressive disorder, not elsewhere classified F32.9 Active Assessment Anxiety disorder, unspecified F41.9 Active Medications Medication Code System Code Instructions Start Date End Date Status Dosage Trileptal [facility] [address]-00 600 MG Orally twice a day Sep 10, 2015 one tablet ZyrTEC ND 0 10 mg April 01, 2014 1 Tablet by Oral route 1 time per day Benadryl [facility] [address]-26 25 MG Orally Once a day PRN sleeplessness 1-2 capsule Atrovent HFA [facility] [address]-67 17 MCG/ACT Inhalation Four times a day PRN 2 puffs Tessalon NDC 0 200 mg Nov 15, 2012 1 Capsule by Oral route 3 times per day PRN cough Imitrex [facility] [address]-70 50 mg February 26, 2013 PRN headache, may repeat in 2 hrs, NTC 2 tabs/24 hrs Erythromycin [facility] [address]-38 500 mg April 01, 2014 1 Tablet by Oral route 1 time per day Zoloft [facility] [address]-96 50 MG Orally Once a day Nov 21, 2013 1 tablet Nasonex [facility] [address]-48 50 MCG/ACT Nasally 1-2 times daily PRN seasonal allergies 1-2 sprays in each nostril Acetaminophen-Codeine [facility] [address]-78 300-30 mg Aug 26, 2014 1- 2 Tablet by Oral route every 4 hours PRN pain - NTE 4 gm apap in 24 hrs Retin-A [facility] [address]-31 0.05 % February 26, 2013 Apply to back daily at bedtime EpiPen ND 0 0.3 mg/0.3 mL (1:1,000) February 26, 2013 PRN bee stings and proceed to ER Bentyl [facility] [address]-29 20 mg Aug 26, 2014 1 Tablet by Oral route 3 times per day PRN IBS Topamax [facility] [address]-21 50 MG Orally once a day Sep 10, 2015 1 tablet Magnesium Citrate [facility] [address]-46 Nov 13, 2014 0.3 ml by Oral route as directed for bowel prep Melatonin [facility] [address]-13 5 MG Orally Once a day at bedtime as needed April 01, 2014 2 Tablet Clonazepam [facility] [address]-66 1 MG Orally Twice a day for anxiety February 08, 2015 1 tablet Cholestyramine [facility] [address]-51 4 GM Orally 2 - 4 times per day 1 packet mixed with water or non-carbonated drink Delsym [facility] [address]-26 30 MG/5ML Orally every 12 hrs 10 ml as needed pantoprazole [facility] 0 40 mg Nov 13, 2014 1 Tablet by Oral route 1 time per day Multivitamins [facility] [address] Orally not defined Acetaminophen [facility] [address]-78 325 mg Nov 13, 2014 1 Tablet by Oral route every 6 hours PRN fever, Advair HFA [facility] [address]-33 Nov 13, 2014 by inhalation route PRN 2 puffs q4-6 hrs prn cough Singulair [facility] [address]-39 10 mg April 01, 2014 1 Tablet by Oral route 1 time per day Vitamin C [facility] [address]-46 1000 MG Orally 2 times a day 1 tablet ProAir HFA [facility] [address]-59 90 mcg/actuation December 06, 2011 2 4 times per dayPRNshortness of breath - rescue only Procedures Procedure Coding System Code Date Office Visit, Est Pt., Level 3 CPT-4 74570 Sep 10, 2015 [facility] VISIT ESTABLISHED PATIENT CPT-4 G0467 Sep 10, 2015 Vital Signs Date/Time: Sep 10, 2015 Cardiac Monitoring Heart Rate 72 bpm Weight 272.5 lbs Height 78 in BMI 31.49 Index Blood Pressure Diastolic 72 mmHg Blood Pressure Systolic 114 mmHg Results No Known Results Summary Purpose eClinicalWorks Submission
--- OUTSIDE RECORDS SUMMARY | 2018-09-01 18:37 | XMS REPORT ---
Author Author KIM BORGES Organization [employer] Address Unknown Phone Unavailable Care Team Providers Care Balancer Name Role Phone KIM BORGES CP Unavailable Allergies No Known Allergies Problems Problem Type Condition Code Onset Dates Condition Status Problem Asperger's disorder F84.5 Active Problem Depressive disorder, not elsewhere classified F32.9 Active Medications No Known Medications Results No Known Results Summary Purpose eClinicalWorks Submission
--- OUTSIDE RECORDS SUMMARY | 2018-09-01 18:37 | XMS REPORT ---
Author Author KIM BORGES Organization [employer] Address Unknown Phone Unavailable Care Team Providers Care Weatherization Technician Name Role Phone KIM BORGES CP Unavailable Allergies No Known Allergies Problems Problem Type Condition Code Onset Dates Condition Status Problem Asperger's disorder F84.5 Active Problem Depressive disorder, not elsewhere classified F32.9 Active Medications No Known Medications Results No Known Results Summary Purpose eClinicalWorks Submission
--- OUTSIDE RECORDS SUMMARY | 2018-09-01 18:37 | XMS REPORT ---
Author Author KIM BORGES Organization [employer] Address Unknown Phone Unavailable Care Team Providers Care Saw Maker Name Role Phone KIM BORGES CP Unavailable Allergies No Known Allergies Problems Problem Type Condition Code Onset Dates Condition Status Problem Asperger's disorder F84.5 Active Problem Depressive disorder, not elsewhere classified F32.9 Active Medications Medication Code System Code Instructions Start Date End Date Status Dosage Clonazepam [facility] [address]-78 1 MG Orally Twice a day for anxiety February 08, 2015 1 tablet Results No Known Results Summary Purpose eClinicalWorks Submission
--- OUTSIDE RECORDS SUMMARY | 2018-09-01 18:37 | XMS REPORT ---
Author Author MARINA ARCOS [facility] Address Unknown Care Team Providers Care Route Sales Delivery Drivers Supervisor Name Role Phone MARINA ARCOS Unavailable PROBLEMS Type Condition ICD9-CM Code [id number] Code Onset Dates Condition Status SNOMED Code Problem Generalized anxiety disorder F41.1 Active 94308418 Problem Anxiety disorder, unspecified F41.9 Active 146820585 Problem Depressive disorder, not elsewhere classified F32.9 Active 99541325 Problem Encounter for dental examination Z01.20 Active 145283268 Problem Asperger's disorder F84.5 Active 03388867 ALLERGIES Substance Reaction Event Type Date Status Sulfacetamide-Prednisolone Unknown Drug Allergy Aug, Active Aspirin Unknown Drug Allergy Aug, Active Spectazole Unknown Drug Allergy Aug, Active Sulfa Drug dizziness Non Drug Allergy Aug, Active Bee Venom (honey Bee) Unknown Non Drug Allergy Aug, Active SOCIAL HISTORY No smoking Hx information available PLAN OF CARE Activity Details Follow Up prn Reason:hygeine VITAL SIGNS Height 78 in 2016-09-22 Blood pressure systolic 120 mmHg 2016-09-22 Blood pressure diastolic 60 mmHg 2016-09-22 MEDICATIONS Medication Instructions Dosage Frequency Start Date End Date Duration Status Bentyl 20 mg 1 Tablet by Oral route 3 times per day PRN IBS Aug, Active Advair HFA by inhalation route PRN 2 puffs q4-6 hrs prn cough Oct, Active Motrin IB 800 Orally 3 times a day 1 tablet as needed 8h Active Acetaminophen 325 mg 1 Tablet by Oral route every 6 hours PRN fever, Oct, Active Vitamin C 1000 MG Orally 2 times a day 1 tablet 12h Active Imitrex 50 mg PRN headache, may repeat in 2 hrs, NTC 2 tabs/24 hrs Feb, Active Zoloft 50 MG Orally Once a day 1 tablet 24h Oct, 30 days Active Multivitamins Active Delsym 30 MG/5ML Orally every 12 hrs 10 ml as needed 12h Active pantoprazole 40 mg 1 Tablet by Oral route 1 time per day 18 Oct, 2014 Active Topamax 50 MG Orally once a day 1 tablet 24h Aug, 30 days Active Clonazepam 1 MG Orally Twice a day 1 tablet 12h Jul, 30 days Active Ambien 5 MG Orally Once a day 1 tablet at bedtime 24h Jul, 30 days Active EpiPen 0.3 mg/0.3 mL (1:1,000) PRN bee stings and proceed to ER Feb 30 days Active Singulair 10 mg 1 Tablet by Oral route 1 time per day Mar, Active Trileptal 600 MG Orally twice a day 1 tablet 12h Aug, 30 days Active Atrovent HFA 17 MCG/ACT Inhalation Four times a day PRN 2 puffs Active Benadryl 25 MG Orally Once a day PRN sleeplessness 1-2 capsule Active ProAir HFA 90 mcg/actuation 2 4 times per dayPRNshortness of breath - rescue only Nov, Active Tessalon 200 mg 1 Capsule by Oral route 3 times per day PRN cough Oct, Active ZyrTEC 10 mg 1 Tablet by Oral route 1 time per day Mar, Active RESULTS No Results PROCEDURES Procedure Date Ordered Related Diagnosis Body Site RESIN COMPOS - 1 SURFACE POSTERIOR Sep 22, 2016 Billing Notes on claim Sep 22, 2016 IMMUNIZATIONS No Known Immunizations
--- OUTSIDE RECORDS SUMMARY | 2018-09-01 18:38 | XMS REPORT ---
Author Author KATIAJC Organization [facility] Address [address] [place] [address] Care Team Providers Care Waste Water Operator Name Role Phone SRIDHARAMAN JULIANA Unavailable PROBLEMS Type Condition ICD9-CM Code [id number] Code Onset Dates Condition Status SNOMED Code Problem Generalized anxiety disorder F41.1 Active 34464008 Problem Anxiety disorder, unspecified F41.9 Active 172403387 Problem Depressive disorder, not elsewhere classified F32.9 Active 36214744 Problem Asperger's disorder F84.5 Active [id number] ALLERGIES No Information ENCOUNTERS Encounter Location Date Diagnosis [facility] [id number] [place] [address] [id number] Dec, Encounter for dental exam and cleaning w/o abnormal findings Z01.20 [facility] [id number] [place] [address] 20799- 3892 Sep, Asperger's disorder F84.5 ; Depressive disorder, not elsewhere classified F32.9 and Anxiety disorder, unspecified F41.9 [facility] [address] [place] [address] 20282- 0298 Jun, Asperger's disorder F84.5 ; Depressive disorder, not elsewhere classified F32.9 and Anxiety disorder, unspecified F41.9 [facility] [address] [place] [address] 06508- 8751 Jun, Asperger's disorder F84.5 [facility] [id number] [place] [address] 45576- 5164 Apr, Asperger's disorder F84.5 ; Depressive disorder, not elsewhere classified F32.9 and Anxiety disorder, unspecified F41.9 [facility] [id number] [place] [address] 28747- 9833 Apr, [facility] [address] [address] 5312 Apr, [facility] [address] [place] [address] 27377- 7019 Dec, Asperger's disorder F84.5 ; Depressive disorder, not elsewhere classified F32.9 and Anxiety disorder, unspecified F41.9 [facility] [address] [place] [address] 88145- 7036 Dec, Asperger's disorder F84.5 [facility] [id number] [place] [address] 62042- 8512 Nov, [facility] [id number] [place] [address] 89147- 4370 Nov, [facility] [id number] [place] [address] [id number] Aug, Dental examination Z01.20 [facility] [id number] [place] [address] 87139- 5155 Jul, Asperger's disorder F84.5 and Major depressive disorder, recurrent episode with anxious distress F33.9 [facility] [address] [address]- 3111 Jun, [facility] [address] [place] [address] [id number] May, Dental examination Z01.20 [facility] [address] [place] [address] 40971- 2444 Apr, Asperger's disorder F84.5 ; Depressive disorder, not elsewhere classified F32.9 and Anxiety disorder, unspecified F41.9 [facility] [address] [address]- 1437 Feb, [facility] [address] [place] [address] 43657- 6820 January, Asperger's disorder F84.5 ; Depressive disorder, not elsewhere classified F32.9 and Anxiety disorder, unspecified F41.9 [facility] [id number] [place] [address] 32863- 8390 January, Asperger's disorder F84.5 ; Depressive disorder, not elsewhere classified F32.9 and Anxiety disorder, unspecified F41.9 [facility] [id number] [place] [address] 03707- 0962 Dec, Depressive disorder, not elsewhere classified F32.9 and Asperger's disorder F84.5 [facility] [address] [place] [address] [id number] Nov, Encounter for dental examination Z01.20 [facility] [id number] [place] [address] 19464- 4578 Nov, Depressive disorder, not elsewhere classified F32.9 and Asperger's disorder F84.5 [facility] [id number] [place] [address] 32461- 1728 Nov, Depressive disorder, not elsewhere classified F32.9 and Asperger's disorder F84.5 [facility] [id number] [place] [address] 15202- 6761 Oct, [facility] [id number] [place] [address] 25693- 8060 Oct, [facility] [id number] [place] [address] 36571- 1450 Oct, [facility] [id number] [place] [address] 35909- 0825 Oct, [facility] [id number] [place] [address] 03702- 4864 Oct, Asperger's disorder F84.5 ; Depressive disorder, not elsewhere classified F32.9 and Anxiety disorder, unspecified F41.9 [facility] [id number] [place] [address] 72957- 0284 Oct, [facility] [address] [facility] [id number] [address]- 6825 Oct, [facility] [address] [facility] [id number] [place] [address] 26398- 5336 Oct, Depressive disorder, not elsewhere classified F32.9 and Asperger's disorder F84.5 [facility] [id number] [place] [address] 70439- 1872 Sep, [facility] [address] [facility] [id number] [place] [address] 11799- 8653 Sep, Depressive disorder, not elsewhere classified F32.9 and Asperger's disorder F84.5 [facility] [id number] [address]- 1122 Aug, [facility] [id number] [place] [address] 89083- 0964 Aug, Depressive disorder, not elsewhere classified F32.9 and Asperger's disorder F84.5 [facility] [id number] [address]- 3424 Aug, [facility] [id number] [address]- 8149 Aug, Asperger's disorder F84.5 ; Depressive disorder, not elsewhere classified F32.9 and Anxiety disorder, unspecified F41.9 [facility] [id number] [address]- 9013 Aug, [facility] [address] [facility] [id number] [address]- 3356 Aug, Depressive disorder, not elsewhere classified F32.9 and Asperger's disorder F84.5 [facility] [address] [facility] [id number] [address]- 7883 Jul, Depressive disorder, not elsewhere classified F32.9 ; Asperger's disorder F84.5 and Anxiety disorder, unspecified F41.9 [facility] [address] [address]- 0432 Jul, Depressive disorder, not elsewhere classified F32.9 and Asperger's disorder F84.5 [facility] [address] [place] [address] 93505- 8319 Jun, Depressive disorder, not elsewhere classified F32.9 and Asperger's disorder F84.5 [facility] [address] [place] [address] 13084- 1920 Jun, Depressive disorder, not elsewhere classified F32.9 and Asperger's disorder F84.5 [facility] [id number] [place] [address] [id number] May, Dental examination V72.2 [facility] [id number] [place] [address] 80267- 1470 May, Depressive disorder, not elsewhere classified 311 and Asperger's disorder 299.80 [facility] [address] [place] [address] 51070- 0707 May, [facility] [id number] [place] [address] 35499- 5390 May, Depressive disorder, not elsewhere classified 311 and Asperger's disorder 299.80 [facility] [address] [place] [address] 49103- 9860 Apr, Bipolar disorder, unspecified 296.80 and Generalized anxiety disorder 300.02 [facility] [address] [place] [address] 34700- 8272 Apr, [facility] [id number] [place] [address] 04518- 0284 Apr, Depressive disorder, not elsewhere classified 311 and Asperger's disorder 299.80 [facility] [address] [place] [address] 93676- 9857 Mar, [facility] [id number] [place] [address] [id number]- 0524 Mar, Depressive disorder, not elsewhere classified 311 and Asperger's disorder 299.80 [facility] [address] 0046 Mar, [facility] [address] 0972 Feb, [facility] [id number] [place] [address] 507348- 8744 Feb, Depressive disorder, not elsewhere classified 311 and Asperger's disorder 299.80 [facility] [address] [place] [address] 109964- 1402 January, Depressive disorder, not elsewhere classified 311 and Asperger's disorder 299.80 [facility] [address] 6841 January, Bipolar disorder, unspecified 296.80 and Generalized anxiety disorder 300.02 [facility] [address] [address]- 9523 January, [facility] [address] [address]- 7241 Dec, [facility] [address] [address]- 9475 Dec, [facility] [address] [address]- 9574 Nov, [facility] [address] [address]- 3130 Nov, [facility] [address] 7872 Nov, [facility] [address] 0953 Nov, [facility] [address] 2663 Nov, [facility] [address] [facility] [id number] [place] [address]- 6349 Nov, [facility] [place] [facility] [address] [id number] [place] [address]- 1131 Oct, [facility] [place] [facility] [address] [id number] [place] [address]- 4936 Oct, [facility] [place] [facility] [address] [id number] [place] [address]- 6102 Oct, [facility] [place] [facility] [address] [id number] [place] [address]- 4780 Oct, [facility] [place] [facility] [address] [id number] [place] [address]- 2087 Oct, [facility] [place] [facility] [address] [id number] [place] [address]- 3806 Oct, [facility] [place] [facility] [address] [id number] [place] [address]- 1197 Sep, [facility] [place] [facility] [address] [id number] [place] [address]- 3174 Sep, [facility] [place] [facility] [address] [facility] [id number] [place] [address]- 2180 Sep, [facility] [place] [facility] [address] [id number] [place] [address]- 9001 Sep, [facility] [place] [facility] [address] [id number] [place] [address]- 5057 Sep, [facility] [place] [facility] [address] [id number] [place] [address]- 5023 Sep, [facility] [place] [facility] [address] [id number] [place] [address]- 6504 Aug, [facility] [place] [facility] [address] [id number] [place] [address]- 7868 Aug, [facility] [place] [facility] [address] [id number] [place] [address]- 8674 Aug, [facility] [place] [facility] [address] [id number] [place] 1338 Aug, [facility] [place] [facility] [address] [id number] [place] [address]- 7799 Aug, [facility] [place] [facility] [address] [id number] [place] [address]- 0903 Aug, [facility] [place] [facility] [address] [id number] [place] [address]- 1878 Aug, [facility] [place] [facility] [address] [id number] [place] 3979 Aug, [facility] [place] [facility] [address] [id number] [place] [address]- 8941 Jul, [facility] [place] [facility] [address] [id number] [place] [address]- 0869 Jul, [facility] [place] [facility] [address] [id number] [place] [address]- 0070 Jul, [facility] [place] [facility] [address] [id number] [place] [address]- 9744 Jul, [facility] [place] [facility] [address] [id number] [place] [address]- 8896 Jun, [facility] [place] [facility] [address] [id number] [address]- 8038 Jun, [facility] [place] [facility] [address] [id number] [place] [address]- 1807 Jun, [facility] [place] [facility] [address] [id number] [place] [address]- 2093 Jun, [facility] [place] [facility] [address] [id number] [place] [address]- 1480 Jun, [facility] [place] [facility] [address] [id number] [place] 0626 Jun, [facility] [place] [facility] [address] [id number] [place] [address]- 0136 May, [facility] [place] [facility] [address] [id number] [place] [address]- 9964 May, [facility] [place] [facility] [address] [id number] [place] [address]- 0736 May, [facility] [place] [facility] [address] [id number] [place] [address]- 9904 May, [facility] [place] [facility] [address] [id number] [place] [address]- 5550 Apr, [facility] [place] [facility] [address] [id number] [place] [address]- 9386 Apr, [facility] [place] [facility] [address] [id number] [place] [address]- 3122 Apr, [facility] [place] [facility] [address] [id number] [place] [address]- 2870 Apr, [facility] [place] [facility] [address] [id number] [place] [address]- 2599 Apr, [facility] [place] [facility] [address] [id number] [place] [address]- 6829 Apr, [facility] [place] [facility] [address] [id number] [place] [address]- 5684 Mar, [facility] [place] [facility] [address] [id number] [place] [address]- 7872 Mar, [facility] [place] [facility] [address] [id number] [place] [address]- 6921 Mar, [facility] [place] [facility] [address] [id number] [place] [address]- 3272 Mar, [facility] [place] [facility] [address] [id number] [place] [address]- 9393 Mar, [facility] [place] [facility] [address] [id number] [place] [address]- 9323 Mar, [facility] [place] [facility] [address] [id number] [place] [address]- 1319 Mar, [facility] [place] [facility] [address] [id number] [place] [address]- 8772 Mar, [facility] [place] [facility] [address] [id number] [place] [address]- 8723 Feb, [facility] [place] [facility] [address] [id number] [place] [address]- 3575 Feb, [facility] [place] [facility] [address] [id number] [place] [address]- 3298 Feb, [facility] [place] [facility] [address] [id number] [place] [address]- 7865 Feb, [facility] [place] [facility] [address] [id number] [place] [address]- 6862 January, [facility] [place] [facility] [address] [id number] [place] [address]- 4521 January, [facility] [place] [facility] [address] [id number] [place] [address]- 8075 January, [facility] [place] [facility] [address] [id number] [place] [address]- 5865 January, [facility] [place] [facility] [address] [id number] [place] [address]- 0463 January, [facility] [place] [facility] [address] [id number] [place] [address]- 7033 January, [facility] [place] [facility] [address] [id number] [place] [address]- 8849 Dec, [facility] [place] [facility] [address] [id number] [place] [address]- 3346 Dec, [facility] [place] [facility] [address] [id number] [place] [address]- 5560 Dec, [facility] [place] [facility] [address] [id number] [place] [address]- 5403 Dec, [facility] [place] [facility] [address] [id number] [place] [address]- 6483 Dec, [facility] [place] [facility] [address] [id number] [place] [address]- 4566 Dec, [facility] [place] [facility] [address] [id number] [place] [address]- 4981 Dec, [facility] [place] [facility] [address] [id number] [place] [address]- 7995 Dec, [facility] [place] [facility] [address] [id number] [place] [address]- 4104 Nov, [facility] [place] [facility] [address] [id number] [place] [address]- 0926 Nov, [facility] [place] [facility] [address] [facility] [id number] [place] [address]- 3789 Nov, [facility] [place] [facility] [address] [id number] [place] [address]- 8208 Nov, [facility] [place] [facility] [address] [id number] [place] [address]- 3654 Nov, [facility] [place] [facility] [address] [facility] [id number] [place] [address]- 1665 Nov, [facility] [place] [facility] [address] [id number] [place] [address]- 8743 Nov, [facility] [place] [facility] [address] [facility] [id number] [place] [address]- 6924 Nov, [facility] [place] [facility] [address] [id number] [place] [address]- 3818 Oct, [facility] [place] [facility] [address] [id number] [place] [address]- 6200 Oct, [facility] [place] [facility] [address] [facility] [id number] [place] [address]- 7881 Sep, [facility] [place] [facility] [address] [id number] [place] [address]- 6240 Sep, [facility] [place] [facility] [address] [id number] [place] [address]- 5877 Sep, [facility] [place] [facility] [address] [id number] [place] [address]- 0271 Sep, [facility] [place] [facility] [address] [id number] [place] [address]- 5797 Sep, [facility] [place] [facility] [address] [id number] [place] [address]- 6131 Sep, [facility] [place] [facility] [address] [id number] [place] [address]- 7920 Aug, [facility] [place] [facility] [address] [id number] [place] [address]- 2235 Aug, [facility] [place] [facility] [address] [id number] [place] [address]- 1483 Aug, [facility] [place] [facility] [address] [id number] [place] [address]- 6124 Aug, [facility] [place] [facility] [address] [id number] [place] [address]- 9279 Aug, [facility] [place] [facility] [address] [id number] [place] [address]- 2106 Aug, [facility] [place] [facility] [address] [id number] [place] [address]- 1660 Jul, [facility] [place] [facility] [address] [id number] [place] [address]- 1810 Jul, [facility] [place] [facility] [address] [id number] [place] [address]- 0821 Jul, [facility] [place] [facility] [address] [id number] [place] [address]- 2061 Jul, [facility] [place] [facility] [address] [id number] [place] [address]- 0410 Jul, [facility] [place] [facility] [address] [id number] [place] [address]- 9529 Jul, [facility] [place] [facility] [address] [id number] [place] [address]- 3486 Jul, [facility] [place] [facility] [address] [id number] [place] [address]- 4626 Jul, [facility] [place] [facility] [address] [id number] [place] [address]- 2347 Jun, [facility] [place] [facility] [address] [id number] [place] [address]- 5312 Jun, [facility] [place] [facility] [address] [id number] [place] [address]- 3166 Jun, [facility] [place] [facility] [address] [id number] [place] [address]- 0634 Jun, [facility] [place] [facility] [address] [id number] [place] [address] Jun, [facility] [place] [facility] [address] [id number] [place] [address] Jun, [facility] [place] [facility] [address] [id number] [place] [address] May, [facility] [place] [facility] [address] [id number] [place] [address] May, [facility] [place] [facility] [address] [id number] [place] [address] May, [facility] [place] [facility] [address] [id number] [place] [address] May, [facility] [place] [facility] [address] [id number] [place] [address] Apr, [facility] [place] [facility] [address] [id number] [place] [address] Apr, [facility] [place] [facility] [address] [id number] [place] [address] Apr, [facility] [address] [id number] [place] [address] Mar, [facility] [address] [id number] [place] [address] Mar, [facility] [address] [id number] [place] [address] Mar, [facility] [address] [id number] [place] [address] Mar, [facility] [address] [id number] [place] [address] Feb, [facility] [address] [id number] [place] [address] Feb, [facility] [address] [id number] [place] [address] Feb, [facility] [address] [id number] [place] [address] Feb, [facility] [address] [id number] [place] [address] Feb, [facility] [address] [id number] [place] [address] January, [facility] [address] [id number] [place] [address] January, [facility] [address] [id number] [place] [address] January, [facility] [address] [id number] [place] [address] January, [facility] [address] [id number] [place] [address] Dec, [facility] [address] [id number] [place] [address] Dec, [facility] [address] [id number] [place] [address] Dec, [facility] [address] [id number] [place] [address] Nov, [facility] [address] [id number] [place] [address] Nov, [facility] [place] [facility] [address] [id number] [place] [address] Nov, [facility] [address] [id number] [place] [address] Oct, [facility] [place] [facility] [address] [id number] [place] [address] Oct, [facility] [address] [id number] [place] [address] Oct, [facility] [address] [id number] [place] [address] Oct, [facility] [address] [id number] [place] [address] Oct, [facility] [address] [address] [id number] [place] [address] Oct, [facility] [place] [facility] [address] [id number] [address] Oct, [facility] [place] [facility] [address] [id number] [place] [address] Sep, [facility] [place] [facility] [address] [id number] [place] [address] Sep, [facility] [place] [facility] [address] [id number] [place] [address] Sep, [facility] [place] [facility] [address] [id number] [place] [address] Sep, [facility] [place] [facility] [address] [id number] [place] [address] Sep, [facility] [place] [facility] [address] [id number] [place] [address] Jul, [facility] [place] [facility] [address] [id number] [place] [address] Jul, [facility] [place] [facility] [address] [id number] [place] [address] Jul, [facility] [place] [facility] [address] [id number] [place] [address] Jul, [facility] [place] [facility] [address] [id number] [place] [address] Jul, [facility] [place] [facility] [address] [id number] [place] [address] Jul, [facility] [place] [facility] [address] [facility] [id number] [place] [address] Jul, [facility] [place] [facility] [address] [id number] [place] [address] Jun, [facility] [place] [facility] [address] [facility] [id number] [place] [address] Jun, [facility] [place] [facility] [address] [facility] [id number] [place] [address] Jun, [facility] [place] [facility] [address] [id number] [place] [address] Jun, [facility] [place] [facility] [address] [facility] [id number] [place] [address] 18 Jun, 2012 [facility] [place] [facility] [address] [id number] [place] [address] Jun, [facility] [place] [facility] [address] [facility] [id number] [place] [address] Jun, [facility] [place] [facility] [address] [id number] [place] [address] Jun, [facility] [place] [facility] [address] [id number] [place] [address] May, [facility] [place] [facility] [address] [id number] [place] [address] May, [facility] [place] [facility] [address] [id number] [place] [address] Apr, [facility] [place] [facility] [address] [id number] [place] [address]26 Apr, [facility] [place] [facility] [address] [id number] [place] [address] Apr, [facility] [place] [facility] [address] [id number] [place] [address] Apr, [facility] [place] [facility] [address] [id number] [place] [address] Mar, [facility] [place] [facility] [address] [id number] [place] [address]99 Mar, [facility] [place] [facility] [address] [id number] [place] [address] 39[address] Feb, [facility] [place] [facility] [address] [id number] [place] [address] Feb, [facility] [place] [facility] [address] [id number] [place] [address] Feb, [facility] [place] [facility] [address] [id number] [place] [address] Feb, [facility] [place] [facility] [address] [id number] [place] [address] 14[address] Feb, [facility] [place] [facility] [address] [id number] [place] [address] January, [facility] [place] [facility] [address] [id number] [place] [address] January, [facility] [place] [facility] [address] [id number] [place] [address] January, [facility] [address] [id number] [place] [address] January, [facility] [address] [id number] [place] [address] Dec, [facility] [address] [id number] [place] [address] 84[address] Dec, [facility] [place] [facility] [address] [id number] [place] [address] Dec, [facility] [address] [id number] [place] [address] Nov, [facility] [place] [facility] [address] [id number] [place] [address] Oct, [facility] [address] [id number] [place] [address] Oct, [facility] [place] [facility] [address] [id number] [place] [address] Sep, [facility] [address] [id number] [place] [address] Sep, [facility] [address] [facility] [id number] [place] [address] Sep, [facility] [address] [id number] [place] [address] Aug, [facility] [place] [facility] [address] [id number] [place] [address] Aug, [facility] [place] [facility] [address] [id number] [place] [address]- [address] 14 Aug, 2010 [facility] [place] [facility] [address] [id number] [place] [address] Aug, [facility] [place] [facility] [address] [facility] [id number] [place] [address] Jul, [facility] [place] [facility] [address] [facility] [id number] [place] [address] Jul, [facility] [address] [id number] [address] Jun, [facility] [address] [id number] [address] Jun, [facility] [id number] [address] Aug, [facility] [address] [facility] [id number] [place] [address] Jul, IMMUNIZATIONS No Known Immunizations SOCIAL HISTORY Never Assessed REASON FOR VISIT f/u PLAN OF CARE Activity Details Follow Up 3 Months Reason: VITAL SIGNS MEDICATIONS Medication Instructions Dosage Frequency Start Date End Date Duration Status Motrin IB 800 Orally 3 times a day 1 tablet as needed 8h Active Albuterol Sulfate HFA 108 (90 Base) MCG/ACT Inhalation every 4 hrs 2 puffs as needed 4h Active Tessalon 200 mg 1 Capsule by Oral route 3 times per day PRN cough Oct, Active Clonazepam 1 MG Orally daily 0.5 tablet in morning and 1 tablet at night 24h Jul, 30 days Active Vitamin C 1000 MG Orally 2 times a day 1 tablet 12h Active pantoprazole 40 mg 1 Tablet by Oral route 1 time per day Oct, Active Advil 200 MG Orally every 6 hrs 1 tablet as needed 6h Active Singulair 10 mg 1 Tablet by Oral route 1 time per day Mar, Active Advair HFA by inhalation route PRN 2 puffs q4-6 hrs prn cough Oct, Active ZyrTEC 10 mg 1 Tablet by Oral route 1 time per day Mar, Active Visine 0.05 % Ophthalmic every 6 hrs 1 drop into affected eye as needed 6h Active Bentyl 20 mg 1 Tablet by Oral route 3 times per day PRN IBS Aug, Active Topamax 50 MG Orally once a day 1 tablet 24h Aug, 30 days Active Multivitamins Active EpiPen 0.3 mg/0.3 mL (1:1,000) PRN bee stings and proceed to ER Feb 30 days Active Tussin 100 MG/5ML Orally every 4 hrs 10 ml as needed 4h Active Benadryl 25 MG Orally Once a day PRN sleeplessness 1-2 capsule Active Zoloft 50 MG Orally Once a day 1 tablet 24h Oct, 30 days Active Imitrex 50 mg PRN headache, may repeat in 2 hrs, NTC 2 tabs/24 hrs Feb, Active Tums 500 MG Orally Four times a day 1 tablet 6h Active Milk of Magnesia 400 MG/5ML Orally 2 times a day 30 ml as needed 12h Active Neosporin 1.75-04506-.025 Ophthalmic every 4 hrs 1 null into affected eye 4h Active Trileptal 600 MG Orally twice a day 1 tablet 12h Aug, 30 days Active Imodium A-D 2 MG Orally 8 time(s) a day 1 tablet Active Hydrocortisone 1 % Rectal Twice a day 1 application to affected area 12h Active Cough Drops 8.4 MG Active RESULTS No Results PROCEDURES Procedure Date Ordered Result Body Site [facility] VISIT ESTABLISHED PATIENT Jul 26, 2017 INSTRUCTIONS MEDICATIONS ADMINISTERED No Known Medications MEDICAL (GENERAL) HISTORY Type Description Date Medical History unspecified mood disorder Medical History anxiety Medical History bi-polar disorder Medical History autistic Surgical History scope of left knee - zafuta 2013 Surgical History scope of right knee - ta 2014 Surgical History colonoscopy 2014
--- OUTSIDE RECORDS SUMMARY | 2018-09-01 18:38 | XMS REPORT ---
Author Author TED HARDEN [facility] eClinicalWorks Address Unknown Phone Unavailable Care Team Providers Care Tool Grinding Technician Name Role Phone TED HARDEN Unavailable Allergies No Known Allergies Problems Problem Type Condition Code Onset Dates Condition Status Problem Asperger's disorder F84.5 Active Assessment Depressive disorder, not elsewhere classified F32.9 Active Problem Depressive disorder, not elsewhere classified F32.9 Active Assessment Asperger's disorder F84.5 Active Medications No Known Medications Procedures Procedure Coding System Code Date Psychotherapy, patient &/family, 45 minutes, established patient CPT-4 40598 Aug 26, 2015 [facility] VISIT MENTAL HEALTH ESTAB PT CPT-4 G0470 Aug 26, 2015 Results No Known Results Summary Purpose eClinicalWorks Submission
--- OUTSIDE RECORDS SUMMARY | 2018-09-01 18:38 | XMS REPORT ---
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
--- OUTSIDE RECORDS SUMMARY | 2018-09-01 18:38 | XMS REPORT ---
Author Author KATIAJC Organization [facility] Address [address] [place] [address] Care Team Providers Care Installment Loan Collector Name Role Phone JC MONTALVO Unavailable PROBLEMS Type Condition ICD9-CM Code ZUL60-MY Code Onset Dates Condition Status SNOMED Code Problem Generalized anxiety disorder F41.1 Active 90260076 Problem Anxiety disorder, unspecified F41.9 Active 163052115 Problem Depressive disorder, not elsewhere classified F32.9 Active 59473351 Problem Asperger's disorder F84.5 Active 37599896 ALLERGIES Substance Reaction Event Type Date Status Sulfacetamide-Prednisolone Unknown Drug Allergy Apr, Active Aspirin Unknown Drug Allergy Apr, Active Spectazole Unknown Drug Allergy Apr, Active Sulfa Drug dizziness Non Drug Allergy Apr, Active Bee Venom (honey Bee) Unknown Non Drug Allergy Apr, Active ENCOUNTERS Encounter Location Date Diagnosis [facility] [address] [id number] Dec, Encounter for dental exam and cleaning w/o abnormal findings Z01.20 [place] [id number] [place] [address] 39396- 8718 Sep, Asperger's disorder F84.5 ; Depressive disorder, not elsewhere classified F32.9 and Anxiety disorder, unspecified F41.9 [facility] [id number] [place] [address] 95922- 0372 Jun, Asperger's disorder F84.5 ; Depressive disorder, not elsewhere classified F32.9 and Anxiety disorder, unspecified F41.9 [facility] [id number] [place] [address] 50163- 5435 Jun, Asperger's disorder F84.5 [facility] [id number] [place] [address] 28785- 5163 Apr, Asperger's disorder F84.5 ; Depressive disorder, not elsewhere classified F32.9 and Anxiety disorder, unspecified F41.9 [facility] [id number] [place] [address] 54679- 3913 Apr, [facility] [id number] [place] [address] 58441- 9835 Apr, [facility] [id number] [place] [address] 33781- 3659 Dec, Asperger's disorder F84.5 ; Depressive disorder, not elsewhere classified F32.9 and Anxiety disorder, unspecified F41.9 [facility] [id number] [place] [address] 14673- 7053 Dec, Asperger's disorder F84.5 [facility] [id number] [place] [address] 94908- 1671 Nov, [facility] [id number] [place] [address] 95477- 6525 Nov, [facility] [id number] [place] [address] [id number] Aug, Dental examination Z01.20 [facility] [id number] [place] [address] 17430- 9172 Jul, Asperger's disorder F84.5 and Major depressive disorder, recurrent episode with anxious distress F33.9 [facility] [id number] [place] [address] 71021- 3103 Jun, [facility] [id number] [place] [address] [id number] 30 May, 2016 Dental examination Z01.20 [facility] [id number] [place] [address] 48866- 8037 08 Apr, 2016 Asperger's disorder F84.5 ; Depressive disorder, not elsewhere classified F32.9 and Anxiety disorder, unspecified F41.9 [facility] [id number] [place] [address] 04207- 2753 Feb, [facility] [id number] [place] [address] 99095- 3922 January, Asperger's disorder F84.5 ; Depressive disorder, not elsewhere classified F32.9 and Anxiety disorder, unspecified F41.9 [facility] [id number] [place] [address] 91428- 3679 January, Asperger's disorder F84.5 ; Depressive disorder, not elsewhere classified F32.9 and Anxiety disorder, unspecified F41.9 [facility] [id number] [place] [address] 58228- 5009 Dec, Depressive disorder, not elsewhere classified F32.9 and Asperger's disorder F84.5 [facility] [id number] [place] [address] [id number] Nov, Encounter for dental examination Z01.20 [facility] [id number] [place] [address] 82011- 9419 Nov, Depressive disorder, not elsewhere classified F32.9 and Asperger's disorder F84.5 [facility] [address] [place] [address] 22263- 1039 Nov, Depressive disorder, not elsewhere classified F32.9 and Asperger's disorder F84.5 [facility] [id number] [place] [address] 31169- 5271 Oct, [facility] [id number] [place] [address] 44424- 7523 Oct, [facility] [id number] [place] [address] 19189- 3263 Oct, [facility] [id number] [place] [address] 16484- 6704 Oct, [facility] [id number] [place] [address] 80023- 8529 Oct, Asperger's disorder F84.5 ; Depressive disorder, not elsewhere classified F32.9 and Anxiety disorder, unspecified F41.9 [facility] [id number] [place] [address] 76819- 5792 Oct, [facility] [id number] [place] [address] 16892- 6889 Oct, [facility] [id number] [place] [address] 94628- 1112 Oct, Depressive disorder, not elsewhere classified F32.9 and Asperger's disorder F84.5 [facility] [id number] [place] [address] 98438- 9939 Sep, [facility] [id number] [place] [address] 06277- 7968 Sep, Depressive disorder, not elsewhere classified F32.9 and Asperger's disorder F84.5 [facility] [id number] [place] [address] 85331- 0449 Aug, [facility] [id number] [place] [address] 00083- 3829 Aug, Depressive disorder, not elsewhere classified F32.9 and Asperger's disorder F84.5 [facility] [address] [address]- 5382 Aug, [facility] [id number] [place] [address] 98431- 5255 Aug, Asperger's disorder F84.5 ; Depressive disorder, not elsewhere classified F32.9 and Anxiety disorder, unspecified F41.9 [facility] [address] [id number] [place] [address] 83021- 3363 Aug, [facility] [id number] [place] [address] 52523- 6618 Aug, Depressive disorder, not elsewhere classified F32.9 and Asperger's disorder F84.5 [facility] [id number] [address]- 0740 Jul, Depressive disorder, not elsewhere classified F32.9 ; Asperger's disorder F84.5 and Anxiety disorder, unspecified F41.9 [facility] [address] [address]- 0230 Jul, Depressive disorder, not elsewhere classified F32.9 and Asperger's disorder F84.5 [facility] [id number] [place] [address] 00243- 6772 Jun, Depressive disorder, not elsewhere classified F32.9 and Asperger's disorder F84.5 [facility] [id number] [place] [address] 14865- 3726 Jun, Depressive disorder, not elsewhere classified F32.9 and Asperger's disorder F84.5 [facility] [address] [place] [address] [id number] May, Dental examination V72.2 [facility] [address] [place] [address] 49518- 4933 17 May, 2015 Depressive disorder, not elsewhere classified 311 and Asperger's disorder 299.80 [facility] [address] [address]- 1693 May, [facility] [id number] [place] [address] 67846- 5492 May, Depressive disorder, not elsewhere classified 311 and Asperger's disorder 299.80 [facility] [id number] [place] [address] 92203- 7305 Apr, Bipolar disorder, unspecified 296.80 and Generalized anxiety disorder 300.02 [facility] [address] [address]- 1893 Apr, [facility] [address] [place] [address] 94820- 3979 Apr, Depressive disorder, not elsewhere classified 311 and Asperger's disorder 299.80 [facility] [id number] [address]- 1123 Mar, [facility] [id number] 7314 Mar, Depressive disorder, not elsewhere classified 311 and Asperger's disorder 299.80 [facility] [id number] [address]- 8168 Mar, [facility] [address] [facility] [id number] [address]- 5129 Feb, [facility] [id number] [place] [address] 81428- 4410 Feb, Depressive disorder, not elsewhere classified 311 and Asperger's disorder 299.80 [facility] [address] [address]- 0381 January, Depressive disorder, not elsewhere classified 311 and Asperger's disorder 299.80 [facility] [address] [address]- 0798 January, Bipolar disorder, unspecified 296.80 and Generalized anxiety disorder 300.02 [facility] [address] [address]- 0100 January, [facility] [address] [address]- 9250 Dec, [facility] [address] [address]- 8353 Dec, [facility] [id number] [address]- 9931 Nov, [facility] [id number] [address] 8877 Nov, [facility] [address] [address]- 7003 Nov, [facility] [id number] [place] [address]- 2781 Nov, [facility] [place] [facility] [address] [id number] [place] [address]- 0244 Nov, [facility] [place] [facility] [address] [id number] [place] [address]- 9360 Nov, [facility] [place] [facility] [address] [id number] [place] [address]- 6014 Oct, [facility] [place] [facility] [address] [id number] [place] [address]- 1011 Oct, [facility] [place] [facility] [address] [id number] [place] [address]- 0640 Oct, [facility] [place] [facility] [address] [id number] [place] [address]- 7473 Oct, [facility] [place] [facility] [address] [id number] [place] [address]- 0744 Oct, [facility] [place] [facility] [address] [id number] [place] [address]- 5807 Oct, [facility] [place] [facility] [address] [id number] [place] [address]- 9497 Sep, [facility] [place] [facility] [address] [id number] [place] [address]- 3094 Sep, [facility] [place] [facility] [address] [id number] [place] [address]- 7768 Sep, [facility] [place] [facility] [address] [id number] [place] [address]- 5011 Sep, [facility] [place] [facility] [address] [id number] [place] [address]- 5588 Sep, [facility] [place] [facility] [address] [id number] [place] [address]- 8719 Sep, [facility] [place] [facility] [address] [id number] [place] [address]- 9937 Aug, [facility] [place] [facility] [address] [id number] [place] [address]- 1898 Aug, [facility] [place] [facility] [address] [id number] [place] [address]- 1116 Aug, [facility] [place] [facility] [address] [facility] [id number] [place] [address]- 6700 Aug, [facility] [place] [facility] [address] [id number] [place] [address]- 7319 Aug, [facility] [place] [facility] [address] [id number] [place] [address]- 2510 Aug, [facility] [place] [facility] [address] [id number] [place] [address]- 0252 Aug, [facility] [place] [facility] [address] [id number] [place] [address]- 7284 Aug, [facility] [place] [facility] [address] [id number] [place] [address]- 3620 Jul, [facility] [place] [facility] [address] [id number] [place] [address]- 3618 Jul, [facility] [place] [facility] [address] [id number] [place] [address]- 7310 Jul, [facility] [place] [facility] [address] [id number] [address]- 7547 Jul, [facility] [place] [facility] [address] [id number] [address]- 5781 Jun, [facility] [place] [facility] [address] [id number] [place] [address]- 4051 Jun, [facility] [place] [facility] [address] [id number] [place] [address]- 9686 Jun, [facility] [place] [facility] [address] [id number], [place] [address]- 6744 Jun, [facility] [place] [facility] [address] [id number] [place] [address]- 4987 Jun, [facility] [place] [facility] [address] [id number] [place] [address]- 5635 Jun, [facility] [place] [facility] [address] [id number] [place] [address]- 8439 May, [facility] [place] [facility] [address] [id number] [place] [address]- 7662 May, [facility] [place] [facility] [address] [id number] [place] [address]- 2266 May, [facility] [place] [facility] [address] [id number] [place] [address]- 5551 May, [facility] [place] [facility] [address] [id number] [place] [address]- 9607 Apr, [facility] [place] [facility] [address] [id number] [place] [address]- 8235 Apr, [facility] [place] [facility] [address] [id number] [place] [address]- 6371 Apr, [facility] [place] [facility] [address] [id number] [place] [address]- 8678 Apr, [facility] [place] [facility] [address] [id number] [place] [address]- 1965 Apr, [facility] [place] [facility] [address] [id number] [place] [address]- 1846 Apr, [facility] [place] [facility] [address] [id number] [place] [address]- 3253 Mar, [facility] [place] [facility] [address] [id number] [place] [address]- 4868 Mar, [facility] [place] [facility] [address] [id number] [place] [address]- 1552 Mar, [facility] [place] [facility] [address] [id number] [place] [address]- 4067 Mar, [facility] [place] [facility] [address] [id number] [place] [address]- 0669 Mar, [facility] [place] [facility] [address] [id number] [place] 0711 Mar, [facility] [place] [facility] [address] [id number] [place] [address]- 2625 Mar, [facility] [place] [facility] [address] [id number] [place] [address]- 4189 Mar, [facility] [place] [facility] [address] [id number] [place] [address]- 5401 Feb, [facility] [place] [facility] [address] [id number] [place] [address]- 4198 Feb, [facility] [place] [facility] [address] [id number] [place] [address]- 2986 Feb, [facility] [place] [facility] [address] [id number] [place] [address]- 8345 Feb, [facility] [place] [facility] [address] [id number] [place] [address]- 8021 January, [facility] [place] [facility] [address] [id number] [place] [address]- 7243 January, [facility] [place] [facility] [address] [id number] [place] [address]- 4003 January, [facility] [place] [facility] [address] [id number] [place] [address]- 5785 January, [facility] [place] [facility] [address] [id number] [place] [address]- 8885 January, [facility] [place] [facility] [address] [id number] [place] [address]- 2096 January, [facility] [place] [facility] [address] [id number] [place] [address]- 2523 Dec, [facility] [place] [facility] [address] [id number] [place] [address]- 5278 30 Dec, 2013 [facility] [place] [facility] [address] [id number] [place] [address]- 0101 Dec, [facility] [place] [facility] [address] [id number] [place] [address]- 8151 Dec, [facility] [place] [facility] [address] [id number] [place] [address]- 8843 Dec, [facility] [place] [facility] [address] [id number] [place] [address]- 1555 Dec, [facility] [place] [facility] [address] [id number] [place] [address]- 6874 Dec, [facility] [place] [facility] [address] [id number] [place] [address]- 5692 Dec, [facility] [place] [facility] [address] [id number] [place] [address]- 3567 Nov, [facility] [place] [facility] [address] [id number] [place] [address]- 0310 Nov, [facility] [place] [facility] [address] [id number] [place] [address]- 6217 Nov, [facility] [place] [facility] [address] [id number] [place] [address]- 3651 Nov, [facility] [place] [facility] [address] [id number] [place] [address]- 0616 Nov, [facility] [place] [facility] [address] [id number] [place] [address]- 8958 Nov, [facility] [place] [facility] [address] [id number] [place] [address]- 9995 Nov, [facility] [place] [facility] [address] [id number] [place] [address]- 0362 Nov, [facility] [place] [facility] [address] [id number] [place] [address]- 0882 Oct, [facility] [place] [facility] [address] [id number] [place] [address]- 5742 Oct, [facility] [place] [facility] [address] [id number] [place] [address]- 1811 Sep, [facility] [place] [facility] [address] [id number] [place] [address]- 2322 Sep, [facility] [place] [facility] [address] [id number] [place] [address]- 1250 Sep, [facility] [place] [facility] [address] [id number] [place] [address]- 7159 Sep, [facility] [place] [facility] [address] [id number] [place] [address]- 1847 Sep, [facility] [place] [facility] [address] [id number] [place] [address]- 3395 Sep, [facility] [place] [facility] [address] [id number] [place] [address]- 2608 Aug, [facility] [place] [facility] [address] [id number] [place] [address]- 6566 Aug, [facility] [place] [facility] [address] [id number] [place] [address]- 6976 Aug, [facility] [place] [facility] [address] [id number] [place] [address]- 2283 Aug, [facility] [place] [facility] [address] [id number] [place] [address]- 0599 Aug, [facility] [place] [facility] [address] [id number] [place] [address]- 9569 Aug, [facility] [place] [facility] [address] [id number] [place] [address]- 2293 Jul, [facility] [place] [facility] [address] [id number] [place] [address]- 7766 Jul, [facility] [place] [facility] [address] [id number] [place] [address]- 8757 Jul, [facility] [place] [facility] [address] [id number] [place] [address]- 1446 Jul, [facility] [place] [facility] [address] [id number] [place] [address]- 5210 Jul, [facility] [place] [facility] [address] [id number] [place] [address]- 4701 Jul, [facility] [place] [facility] [address] [id number] [place] [address]- 6213 Jul, [facility] [place] [facility] [address] [id number] [place] [address]- 5165 Jul, [facility] [place] [facility] [address] [id number] [place] [address]- 8947 Jun, [facility] [place] [facility] [address] [id number] [place] [address]- 5882 Jun, [facility] [place] [facility] [address] [id number], [place] [address]- 0784 Jun, [facility] [place] [facility] [address] [id number] [place] [address]- 1963 Jun, [facility] [place] [facility] [address] [id number], [place] [address]- 9968 Jun, [facility] [place] [facility] [address] [id number], [place] [address]- 4355 Jun, [facility] [place] [facility] [address] [id number], [place] [address] 23 May, 2013 [facility] [place] [facility] [address] [id number] [place] [address] 19 May, 2013 [facility] [place] [facility] [address] [id number], [place] [address] 06 May, 2013 [facility] [place] [facility] [address] [id number], [place] [address] May, [facility] [place] [facility] [address] [id number] [place] [address] Apr, [facility] [address] [id number] [place] [address] Apr, [facility] [address] [id number] [place] [address] Apr, [facility] [address] [id number] [place] [address] Mar, [facility] [place] [facility] [address] [id number] [place] [address] Mar, [facility] [address] [id number] [place] [address] Mar, [facility] [address] [id number] [place] [address] Mar, [facility] [address] [id number] [place] [address] Feb, [facility] [address] [id number] [place] [address] Feb, [facility] [address] [id number] [place] [address] Feb, [facility] [address] [id number] [place] [address] Feb, [facility] [address] [id number] [place] [address] Feb, [facility] [place] [facility] [address] [id number] [place] [address] January, [facility] [place] [facility] [address] [id number] [place] [address] January, [facility] [place] [facility] [address] [id number] [place] [address] January, [facility] [address] [id number] [place] [address] January, [facility] [place] [facility] [address] [id number] [place] [address] Dec, [facility] [place] [facility] [address] [id number] [place] [address] Dec, [facility] [place] [facility] [address] [id number] [place] [address] Dec, [facility] [place] [facility] [address] [id number] [place] [address] Nov, [facility] [address] [id number] [place] [address] Nov, [facility] [place] [facility] [address] [id number] [place] [address] Nov, [facility] [address] [id number] [place] [address] Oct, [facility] [address] [id number] [place] [address] Oct, [facility] [address] [id number] [place] [address] Oct, [facility] [address] [id number] [place] [address] Oct, [facility] [place] [facility] [address] [id number] [place] [address] Oct, [facility] [place] [facility] [address] [id number] [place] [address] Oct, [facility] [place] [facility] [address] [id number] [place] [address] Oct, [facility] [place] [facility] [address] [id number] [place] [address] Sep, [facility] [place] [facility] [address] [id number] [place] [address] Sep, [facility] [place] [facility] [address] [id number] [place] [address] Sep, [facility] [place] [facility] [address] [id number] [place] [address] Sep, [facility] [place] [facility] [address] [id number] [place] [address]- [address] Sep, [facility] [place] [facility] [address] [id number] [place] [address] Jul, [facility] [place] [facility] [address] [id number] [place] [address] Jul, [facility] [place] [facility] [address] [id number] [place] [address] Jul, [facility] [place] [facility] [address] [id number] [place] [address] Jul, [facility] [place] [facility] [address] [id number] [place] [address] Jul, [facility] [place] [facility] [address] [id number] [place] [address] Jul, [facility] [place] [facility] [address] [id number] [place] [address] Jul, [facility] [place] [facility] [address] [facility] [id number] [place] [address] Jun, [facility] [place] [facility] [address] [id number] [place] [address] Jun, [facility] [place] [facility] [address] [id number], [place] [address] Jun, [facility] [place] [facility] [address] [id number] [place] [address] Jun, [facility] [place] [facility] [address] [id number] [place] [address] Jun, [facility] [place] [facility] [address] [id number], [place] [address] 15 Jun, 2012 [facility] [place] [facility] [address] [id number] [place] [address] Jun, [facility] [place] [facility] [address] [id number] [place] [address] Jun, [facility] [place] [facility] [address] [id number] [place] [address] May, [facility] [place] [facility] [address] [id number] [place] [address] May, [facility] [place] [facility] [address] [id number] [place] [address] Apr, [facility] [place] [facility] [address] [id number] [place] [address] Apr, [facility] [place] [facility] [address] [id number] [place] [address] Apr, [facility] [place] [facility] [address] [id number] [place] [address] Apr, [facility] [place] [facility] [address] [id number] [place] [address] Mar, [facility] [place] [facility] [address] [id number] [place] [address] Mar, [facility] [place] [facility] [address] [id number] [place] [address] Feb, [facility] [place] [facility] [address] [id number] [place] [address] Feb, [facility] [place] [facility] [address] [id number] [place] [address] Feb, [facility] [place] [facility] [address] [id number] [place] [address] Feb, [facility] [place] [facility] [address] [id number] [place] [address] Feb, [facility] [place] [facility] [address] [id number] [place] [address] January, [facility] [address] [id number] [place] [address] January, [facility] [address] [id number] [place] [address] January, [facility] [address] [id number] [place] [address] January, [facility] [address] [id number] [place] [address] Dec, [facility] [address] [id number] [place] [address] Dec, [facility] [address] [id number] [place] [address] Dec, [facility] [address] [id number] [place] [address] Nov, [facility] [place] [facility] [address] [id number] [place] [address] Oct, [facility] [address] [id number] [place] [address] Oct, [facility] [address] [id number] [place] [address] Sep, [facility] [address] [id number] [place] [address] Sep, [facility] [place] [facility] [address] [id number] [place] [address] Sep, [facility] [place] [facility] [address] [id number] [place] [address] Aug, [facility] [place] [facility] [address] [id number] [place] [address] Aug, [facility] [place] [facility] [address] [id number] [place] [address] Aug, [facility] [place] [facility] [address] [id number] [address] Aug, [facility] [id number], [place] [address] Jul, [facility] [id number], [place] [address] Jul, [facility] [id number], [place] [address] Jun, [facility] [id number], [place] [address] Jun, [facility] [address], [place] [address] Aug, [facility] [address], [place] [address] Jul, IMMUNIZATIONS No Known Immunizations SOCIAL HISTORY Never Assessed REASON FOR VISIT BH intake -- Past patient of Belinda Pierre--Uriel Espino MA PLAN OF CARE Activity Details Follow Up 2 Months Reason: VITAL SIGNS Height 78 in 2017-05-25 Weight 228.9 lbs 2017-05-25 Heart Rate 72 bpm 2017-05-25 Respiratory Rate 19 2017-05-25 BMI 26.45 kg/m2 2017-05-25 MEDICATIONS Medication Instructions Dosage Frequency Start Date End Date Duration Status ZyrTEC 10 mg 1 Tablet by Oral route 1 time per day Mar, Active Zoloft 50 MG Orally Once a day 1 tablet 24h Oct, 30 days Active Neosporin 1.75-68589-.025 Ophthalmic every 4 hrs 1 null into affected eye 4h Active Trileptal 600 MG Orally twice a day 1 tablet 12h Aug, 30 days Active Tums 500 MG Orally Four times a day 1 tablet 6h Active Atrovent HFA 17 MCG/ACT Inhalation Four times a day PRN 2 puffs Active Multivitamins Active Advil 200 MG Orally every 6 hrs 1 tablet as needed 6h Active pantoprazole 40 mg 1 Tablet by Oral route 1 time per day Oct, Active Advair HFA by inhalation route PRN 2 puffs q4-6 hrs prn cough Oct, Active Singulair 10 mg 1 Tablet by Oral route 1 time per day Mar, Active Albuterol Sulfate HFA 108 (90 Base) MCG/ACT Inhalation every 4 hrs 2 puffs as needed 4h Active Imitrex 50 mg PRN headache, may repeat in 2 hrs, NTC 2 tabs/24 hrs Feb, Active Tessalon 200 mg 1 Capsule by Oral route 3 times per day PRN cough Oct, Active EpiPen 0.3 mg/0.3 mL (1:1,000) PRN bee stings and proceed to ER Feb 30 days Active Vitamin C 1000 MG Orally 2 times a day 1 tablet 12h Active Imodium A-D 2 MG Orally 8 time(s) a day 1 tablet Active Topamax 50 MG Orally once a day 1 tablet 24h Aug, 30 days Active Motrin IB 800 Orally 3 times a day 1 tablet as needed 8h Active Bentyl 20 mg 1 Tablet by Oral route 3 times per day PRN IBS Aug, Active Hydrocortisone 1 % Rectal Twice a day 1 application to affected area 12h Active Cough Drops 8.4 MG Active Visine 0.05 % Ophthalmic every 6 hrs 1 drop into affected eye as needed 6h Active Clonazepam 1 MG Orally Twice a day 1 tablet 12h Jul, 30 days Active Tussin 100 MG/5ML Orally every 4 hrs 10 ml as needed 4h Active Acetaminophen 325 mg 1 Tablet by Oral route every 6 hours PRN fever, Oct, Active Benadryl 25 MG Orally Once a day PRN sleeplessness 1-2 capsule Active Milk of Magnesia 400 MG/5ML Orally 2 times a day 30 ml as needed 12h Active RESULTS No Results PROCEDURES Procedure Date Ordered Result Body Site [facility] VISIT ESTABLISHED PATIENT May 25, 2017 INSTRUCTIONS MEDICATIONS ADMINISTERED No Known Medications MEDICAL (GENERAL) HISTORY Type Description Date Medical History unspecified mood disorder Medical History anxiety Medical History bi-polar disorder Medical History autistic Surgical History scope of left knee - zafuta 2013 Surgical History scope of right knee - zafuta 2014 Surgical History colonoscopy 2014
--- OUTSIDE RECORDS SUMMARY | 2018-09-01 18:38 | XMS REPORT ---
Author Author TED HARDEN [facility] eClinicalWorks Address Unknown Phone Unavailable Care Team Providers Care Director Of Design Name Role Phone TED HARDEN Unavailable Allergies No Known Allergies Problems Problem Type Condition Code Onset Dates Condition Status Problem Asperger's disorder F84.5 Active Assessment Depressive disorder, not elsewhere classified F32.9 Active Problem Depressive disorder, not elsewhere classified F32.9 Active Assessment Asperger's disorder F84.5 Active Medications No Known Medications Procedures Procedure Coding System Code Date Psychotherapy, patient &/family, 45 minutes, established patient CPT-4 24777 Sep 11, 2015 [facility] VISIT MENTAL HEALTH ESTAB PT CPT-4 G0470 Sep 11, 2015 Results No Known Results Summary Purpose eClinicalWorks Submission
--- OUTSIDE RECORDS SUMMARY | 2018-09-01 18:39 | XMS REPORT ---
Author Author KIM Evans Organization [facility] Address Unknown Care Team Providers Care Sap Bpc Architect Name Role Phone KIM Evans Unavailable PROBLEMS Type Condition ICD9-CM Code [id number] Code Onset Dates Condition Status SNOMED Code Problem Generalized anxiety disorder F41.1 Active 38307667 Problem Anxiety disorder, unspecified F41.9 Active 272496369 Problem Depressive disorder, not elsewhere classified F32.9 Active 56167402 Problem Encounter for dental examination Z01.20 Active 238429632 Problem Asperger's disorder F84.5 Active 02212960 ALLERGIES No Information SOCIAL HISTORY Never Assessed [...]
--- OUTSIDE RECORDS SUMMARY | 2018-09-01 18:39 | XMS REPORT ---
Author Author TED HARDEN [facility] eClinicalWorks Address Unknown Phone Unavailable Care Team Providers Care Wireline Supervisor Name Role Phone TED HARDEN Unavailable Allergies No Known Allergies Problems Problem Type Condition Code Onset Dates Condition Status Problem Asperger's disorder F84.5 Active Assessment Depressive disorder, not elsewhere classified F32.9 Active Problem Depressive disorder, not elsewhere classified F32.9 Active Assessment Asperger's disorder F84.5 Active Medications No Known Medications Procedures Procedure Coding System Code Date Psychotherapy, patient &/family, 45 minutes, established patient CPT-4 80334 Oct 30, 2015 [facility] VISIT MENTAL HEALTH ESTAB PT CPT-4 G0470 Oct 30, 2015 Results No Known Results Summary Purpose eClinicalWorks Submission
--- OUTSIDE RECORDS SUMMARY | 2018-09-01 18:39 | XMS REPORT ---
Author Author KIM BORGES Organization [facility] Address Unknown Care Team Providers Care Marine Painter Name Role Phone JONYKIM Unavailable PROBLEMS Type Condition ICD9-CM Code [id number] Code Onset Dates Condition Status SNOMED Code Assessment Major depressive disorder, recurrent episode with anxious distress F33.9 Jul, Active 876915075 Problem Anxiety disorder, unspecified F41.9 Active 702767161 Problem Generalized anxiety disorder F41.1 Active 72305283 Problem Asperger's disorder F84.5 Active 16140576 Assessment Asperger's disorder F84.5 Jul, Active 57555529 Problem Encounter for dental examination Z01.20 Active 938989658 Problem Depressive disorder, not elsewhere classified F32.9 Active 39016800 ALLERGIES Unknown Allergies SOCIAL HISTORY No smoking Hx information available PLAN OF CARE VITAL SIGNS Height 78 in 2016-08-02 Weight 218.6 lbs 2016-08-02 Heart Rate 72 bpm 2016-08-02 Respiratory Rate 18 2016-08-02 BMI 25.26 kg/m2 2016-08-02 Blood pressure systolic 110 mmHg 2016-08-02 Blood pressure diastolic 70 mmHg 2016-08-02 MEDICATIONS Medication Instructions Dosage Frequency Start Date End Date Duration Status pantoprazole 40 mg 1 Tablet by Oral route 1 time per day Oct, Active ZyrTEC 10 mg 1 Tablet by Oral route 1 time per day Mar, Active Acetaminophen 325 mg 1 Tablet by Oral route every 6 hours PRN fever, Oct, Active Tessalon 200 mg 1 Capsule by Oral route 3 times per day PRN cough Oct, Active EpiPen 0.3 mg/0.3 mL (1:1,000) PRN bee stings and proceed to ER Feb 30 days Active Atrovent HFA 17 MCG/ACT Inhalation Four times a day PRN 2 puffs Active ProAir HFA 90 mcg/actuation 2 4 times per dayPRNshortness of breath - rescue only Nov, Active Bentyl 20 mg 1 Tablet by Oral route 3 times per day PRN IBS Aug, Active Ambien 5 MG Orally Once a day 1 tablet at bedtime 24h Jul, 30 days Active Advair HFA by inhalation route PRN 2 puffs q4-6 hrs prn cough Oct, Active Zoloft 50 MG Orally Once a day 1 tablet 24h Oct, 30 days Active Motrin IB 800 Orally 3 times a day 1 tablet as needed 8h Active Multivitamins Active Clonazepam 1 MG Orally Twice a day 1 tablet 12h Jul, 30 days Active Imitrex 50 mg PRN headache, january repeat in 2 hrs, NTC 2 tabs/24 hrs Feb, Active Singulair 10 mg 1 Tablet by Oral route 1 time per day Mar, Active Topamax 50 MG Orally once a day 1 tablet 24h Aug, 30 days Active Vitamin C 1000 MG Orally 2 times a day 1 tablet 12h Active Trileptal 600 MG Orally twice a day 1 tablet 12h Aug, 30 days Active RESULTS No Results PROCEDURES Procedure Date Ordered Related Diagnosis Body Site [facility] VISIT ESTABLISHED PATIENT Aug 02, 2016 Office Visit, Est Pt., Level 3 Aug 02, 2016 IMMUNIZATIONS No Known Immunizations
--- OUTSIDE RECORDS SUMMARY | 2018-09-01 18:39 | XMS REPORT ---
Author Author KIM BORGES [facility] eClinicalWorks Address Unknown Phone Unavailable Care Team Providers Care Lead Generation Marketing Manager Name Role Phone KIM BORGES CP Unavailable Allergies, Adverse Reactions, Alerts Substance Reaction Event Type Sulfacetamide-Prednisolone Info Not Available Drug Allergy Aspirin Info Not Available Drug Allergy Spectazole Info Not Available Drug Allergy Bee Venom (honey Bee) Info Not Available Non Drug Allergy Sulfa Drug dizziness Non Drug Allergy Problems Problem Type Condition Code Onset Dates Condition Status Problem Depressive disorder, not elsewhere classified F32.9 Active Problem Asperger's disorder F84.5 Active Problem Encounter for dental examination Z01.20 Active Assessment Anxiety disorder, unspecified F41.9 Active Assessment Asperger's disorder F84.5 Active Assessment Depressive disorder, not elsewhere classified F32.9 Active Medications Medication Code System Code Instructions Start Date End Date Status Dosage pantoprazole [facility] 0 40 mg Nov 13, 2014 1 Tablet by Oral route 1 time per day Multivitamins [facility] [address] Orally not defined Advair HFA [facility] [address]-32 Nov 13, 2014 by inhalation route PRN 2 puffs q4-6 hrs prn cough ProAir HFA [facility] [address]-31 90 mcg/actuation December 06, 2011 2 4 times per dayPRNshortness of breath - rescue only Acetaminophen [facility] [address]-38 325 mg Nov 13, 2014 1 Tablet by Oral route every 6 hours PRN fever, Zoloft [facility] [address]-96 50 MG Orally Once a day Nov 21, 2013 1 tablet Clonazepam [facility] [address]-06 1 MG Orally Twice a day for anxiety February 08, 2015 1 tablet Atrovent HFA [facility] [address]-91 17 MCG/ACT Inhalation Four times a day PRN 2 puffs Bentyl [facility] [address]-09 20 mg Aug 26, 2014 1 Tablet by Oral route 3 times per day PRN IBS Trileptal [facility] [address]-58 600 MG Orally twice a day Sep 10, 2015 1 tablet Topamax [facility] [address]-73 50 MG Orally once a day Sep 10, 2015 1 tablet Singulair [facility] [address]-26 10 mg April 01, 2014 1 Tablet by Oral route 1 time per day EpiPen NDC 0 0.3 mg/0.3 mL (1:1,000) February 26, 2013 PRN bee stings and proceed to ER ZyrTEC NDC 0 10 mg April 01, 2014 1 Tablet by Oral route 1 time per day Motrin IB [facility] [address]-67 800 Orally 3 times a day 1 tablet as needed Tessalon NDC 0 200 mg Nov 15, 2012 1 Capsule by Oral route 3 times per day PRN cough Vitamin C [facility] [address]-05 1000 MG Orally 2 times a day 1 tablet Imitrex [facility] [address]-07 50 mg February 26, 2013 PRN headache, may repeat in 2 hrs, NTC 2 tabs/24 hrs Procedures Procedure Coding System Code Date Office Visit, Est Pt., Level 3 CPT-4 57299 May 03, 2016 [facility] VISIT ESTABLISHED PATIENT CPT-4 G0467 May 03, 2016 Vital Signs Date/Time: May 03, 2016 Cardiac Monitoring Heart Rate 72 bpm Weight 213.3 lbs Height 78 in BMI 24.65 Index Blood Pressure Diastolic 75 mmHg Blood Pressure Systolic 122 mmHg Results No Known Results Summary Purpose eClinicalWorks Submission
--- OUTSIDE RECORDS SUMMARY | 2018-09-01 18:39 | XMS REPORT ---
Author MARY Ponce [facility] eClinicalWorks Address Unknown Phone Unavailable Care Team Providers Care Shingle Bolt Cutter Name Role Phone MARY TOURE Unavailable Allergies, Adverse Reactions, Alerts Substance Reaction [...] Encounter for dental examination Z01.20 Active Assessment Dental examination Z01.20 Active Medications Medication Code System Code Instructions Start Date End Date Status Dosage pantoprazole [place] 0 40 mg Nov 13, 2014 1 Tablet by Oral route 1 time per day Singulair [facility] [address]-04 10 mg April 01, 2014 1 Tablet by Oral route 1 time per day Vitamin C [facility] [address]-33 1000 MG Orally 2 times a day 1 tablet ProAir HFA [facility] [address]-55 90 mcg/actuation December 06, 2011 2 4 times per dayPRNshortness of breath - rescue only Zoloft [facility] [address]-77 50 MG Orally Once a day Nov 21, 2013 1 tablet EpiPen NDC 0 0.3 mg/0.3 mL (1:1,000) February 26, 2013 PRN bee stings and proceed to ER Topamax [facility] [address]-77 50 MG Orally once a day Sep 10, 2015 1 tablet Advair HFA [facility] [address]-19 Nov 13, 2014 by inhalation route PRN 2 puffs q4-6 hrs prn cough Trileptal [facility] [address]-86 600 MG Orally twice a day Sep 10, 2015 1 tablet Motrin IB [facility] [address]-80 800 Orally 3 times a day 1 tablet as needed Acetaminophen [facility] [address]-69 325 mg Nov 13, 2014 1 Tablet by Oral route every 6 hours PRN fever, Bentyl [facility] [address]-84 20 mg Aug 26, 2014 1 Tablet by Oral route 3 times per day PRN IBS ZyrTEC NDC 0 10 mg April 01, 2014 1 Tablet by Oral route 1 time per day Tessalon NDC 0 200 mg Nov 15, 2012 1 Capsule by Oral route 3 times per day PRN cough Clonazepam [facility] [address]-54 1 MG Orally Twice a day for anxiety February 08, 2015 1 tablet Multivitamins [facility] [address]60 Orally not defined Atrovent HFA [facility] [address]-98 17 MCG/ACT Inhalation Four times a day PRN 2 puffs Imitrex [facility] [address]-39 50 mg February 26, 2013 PRN headache, may repeat in 2 hrs, NTC 2 tabs/24 hrs Procedures Procedure Coding System Code Date BITEWINGS - FOUR FILMS CPT-4 D0274 Jun 25, 2016 PROPHYLAXIS - ADULT CPT-4 D1110 Jun 25, 2016 PERIODIC ORAL EXAMINATION CPT-4 D0120 Jun 25, 2016 Vital Signs Date/Time: Jun 25, 2016 Blood Pressure Systolic 119 mmHg Cardiac Monitoring Heart Rate 61 bpm Height 78 in Blood Pressure Diastolic 67 mmHg Results No Known Results Summary Purpose eClinicalWorks Submission
--- OUTSIDE RECORDS SUMMARY | 2018-09-01 18:39 | XMS REPORT ---
Author Author KIM BORGES [facility] eClinicalWorks Address Unknown Phone Unavailable Care Team Providers Care Roofer Vinyl Coating Name Role Phone KIM BORGES CP Unavailable [...] F32.9 Active Assessment Asperger's disorder F84.5 Active Assessment Anxiety disorder, unspecified F41.9 Active Medications Medication Code System Code Instructions Start Date End Date Status Dosage Retin-A [facility] [address]-17 0.05 % February 26, 2013 Apply to back daily at bedtime Zoloft [facility] [address]-40 50 MG Orally Once a day Nov 21, 2013 1 tablet Nasonex [facility] [address]-57 50 MCG/ACT Nasally 1-2 times daily PRN seasonal allergies 1-2 sprays in each nostril pantoprazole [facility] 0 40 mg Nov 13, 2014 1 Tablet by Oral route 1 time per day Bentyl [facility] [address]-51 20 mg Aug 26, 2014 1 Tablet by Oral route 3 times per day PRN IBS Benadryl [facility] [address]-89 25 MG Orally Once a day PRN sleeplessness 1-2 capsule ProAir HFA [facility] [address]-69 90 mcg/actuation December 06, 2011 2 4 times per dayPRNshortness of breath - rescue only Vitamin C [facility] [address]-77 1000 MG Orally 2 times a day 1 tablet Atrovent HFA [facility] [address]-71 17 MCG/ACT Inhalation Four times a day PRN 2 puffs Delsym [facility] [address]-32 30 MG/5ML Orally every 12 hrs 10 ml as needed Trileptal [facility] [address]-34 300 MG Orally 1 tablet twice a day Aug 11, 2015 as directed Depakote ER [facility] [address]-39 500 MG Orally 1 tablet at bedtime for 1 week then stop Aug 11, 2015 as directed Advair HFA [facility] [address]-43 Nov 13, 2014 by inhalation route PRN 2 puffs q4-6 hrs prn cough Acetaminophen-Codeine [facility] [address]-76 300-30 mg Aug 26, 2014 1- 2 Tablet by Oral route every 4 hours PRN pain - NTE 4 gm apap in 24 hrs ZyrTEC [facility] 0 10 mg April 01, 2014 1 Tablet by Oral route 1 time per day Clonazepam [facility] [address]-61 1 MG Orally Twice a day for anxiety February 08, 2015 1 tablet Multivitamins [facility] 14164-43376 Orally not defined Singulair [facility] [address]-11 10 mg April 01, 2014 1 Tablet by Oral route 1 time per day Imitrex [facility] [address]-51 50 mg February 26, 2013 PRN headache, may repeat in 2 hrs, NTC 2 tabs/24 hrs Melatonin [facility] [address]-21 5 MG Orally Once a day at bedtime as needed April 01, 2014 2 Tablet Erythromycin [facility] [address]-53 500 mg April 01, 2014 1 Tablet by Oral route 1 time per day Acetaminophen [facility] [address]-37 325 mg Nov 13, 2014 1 Tablet by Oral route every 6 hours PRN fever, EpiPen NDC 0 0.3 mg/0.3 mL (1:1,000) February 26, 2013 PRN bee stings and proceed to ER Tessalon NDC 0 200 mg Nov 15, 2012 1 Capsule by Oral route 3 times per day PRN cough Magnesium Citrate [facility] [address]-34 Nov 13, 2014 0.3 ml by Oral route as directed for bowel prep Procedures Procedure Coding System Code Date Office Visit, Est Pt., Level 3 CPT-4 67038 Aug 11, 2015 [facility] VISIT ESTABLISHED PATIENT CPT-4 G0467 Aug 11, 2015 Vital Signs Date/Time: Aug 11, 2015 Cardiac Monitoring Heart Rate 84 bpm Weight 275.5 lbs Height 78 in Waist 48 in BMI 31.83 Index Blood Pressure Diastolic 74 mmHg Blood Pressure Systolic 120 mmHg Results No Known Results Summary Purpose eClinicalWorks Submission
--- OUTSIDE RECORDS SUMMARY | 2018-09-01 18:39 | XMS REPORT ---
Author Author TED HARDEN [facility] eClinicalWorks Address Unknown Phone Unavailable Care Team Providers Care Hedis Registered Nurse Rn Name Role Phone TED HARDEN CP Unavailable Allergies, Adverse Reactions, Alerts Substance [...] patient &/family, 45 minutes, established patient CPT-4 75232 Jul 11, 2015 Results No Known Results Summary Purpose eClinicalWorks Submission
--- OUTSIDE RECORDS SUMMARY | 2018-09-01 18:40 | XMS REPORT ---
Author Author KIM BORGES Organization eClinicalWorks Address Unknown Phone Unavailable Care Team Providers Care Webbing Tacker Name Role Phone KIM BORGES CP Unavailable Allergies No Known Allergies Problems Problem Type Condition Code Onset Dates Condition Status Problem Asperger's disorder F84.5 Active Problem Depressive disorder, not elsewhere classified F32.9 Active Medications Medication Code System Code Instructions Start Date End Date Status Dosage Clonazepam [facility] [address]-51 1 MG Orally Twice a day for anxiety February 08, 2015 1 tablet Results No Known Results Summary Purpose eClinicalWorks Submission
--- OUTSIDE RECORDS SUMMARY | 2018-09-01 18:40 | XMS REPORT ---
Author Author TED HARDEN [facility] eClinicalWorks Address Unknown Phone Unavailable Care Team Providers Care Quality Cloth Tester Name Role Phone TED HARDEN CP Unavailable Allergies No Known Allergies Problems Problem Type Condition Code Onset Dates Condition Status Problem Depressive disorder, not elsewhere classified F32.9 Active Problem Asperger's disorder F84.5 Active Problem Encounter for dental examination Z01.20 Active Assessment Depressive disorder, not elsewhere classified F32.9 Active Assessment Asperger's disorder F84.5 Active Medications No Known Medications Procedures Procedure Coding System Code Date Psychotherapy, patient &/family, 45 minutes, established patient CPT-4 94891 January 08, 2016 ON LICENSE OF [facility] VISIT MENTAL HEALTH ESTAB PT CPT-4 G0470 January 08, 2016 Results No Known Results Summary Purpose eClinicalWorks Submission
--- OUTSIDE RECORDS SUMMARY | 2018-09-01 18:40 | XMS REPORT ---
Author Author KIM BORGES Organization eClinicalWorks Address Unknown Phone Unavailable Care Team Providers Care Bull Bucker Name Role Phone KIM BORGES CP Unavailable Allergies No Known Allergies Problems Problem Type Condition Code Onset Dates Condition Status Problem Asperger's disorder F84.5 Active Problem Depressive disorder, not elsewhere classified F32.9 Active Medications No Known Medications Results No Known Results Summary Purpose eClinicalWorks Submission
--- OUTSIDE RECORDS SUMMARY | 2018-09-01 18:40 | XMS REPORT ---
Author Author TED HARDEN [facility] eClinicalWorks Address Unknown Phone Unavailable Care Team Providers Care Community Health Educator Name Role Phone TED HARDEN Unavailable Allergies [...] patient &/family, 45 minutes, established patient CPT-4 [id number] Jun 12, 2015 Results No Known Results Summary Purpose [facility]i [employer]sinicalWorks Submission
--- OUTSIDE RECORDS SUMMARY | 2018-09-01 18:40 | XMS REPORT ---
Author ELVIN Holbrook [facility] eClinicalWorks Address Unknown Phone Unavailable Care Team Providers Care Child Therapist Name Role Phone ELVIN SIDHU CP Unavailable Allergies No Known Allergies Problems Problem Type Condition Code Onset Dates Condition Status Problem Asperger's disorder F84.5 Active Problem Depressive disorder, not elsewhere classified F32.9 Active Medications No Known Medications Results No Known Results Summary Purpose eClinicalWorks Submission
--- OUTSIDE RECORDS SUMMARY | 2018-09-01 18:42 | XMS REPORT | Continuity of Care Document ---
Author Author [facility] Address Unknown Phone Unavailable Allergies Active Description Code Type Severity Reaction Onset Reported/Identified Relationship to Patient Clinical Status Yes PENICILLINS UNKNOWN UNKNOWN Yes SULFA (SULFONAMIDE ANTIBIOTICS) UNKNOWN UNKNOWN Yes Sulfa (Sulfonamide Antibiotics) [id number] Drug Allergy Mild N/A 2010 Yes sulfa drug Drug Allergy 10/01/2011 Yes aspirin Drug Allergy 01/10/2012 Yes aspirin Drug Allergy N/A N/A 01/10/2012 Yes hydrocodone [id number] Drug Allergy Moderate RASH 02/24/2014 Yes erythromycin ethylsuccinate [id number] Drug Allergy Unknown N/A 2013 Yes Sulfisoxazole Acetyl [id number] Drug Allergy Unknown N/A 02/24/2014 Medications There is no data. 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 12/09/2008 311 MO DEPRESSIVE DISORDER NOS 12/09/2008 312.30 I IMPULSE CONTROL DISORDER NOS 12/09/2008 298.9 P PSYCHOSIS NOS 12/09/2008 299.80 DV ASPERGERS 12/09/2008 301.20 PD SCHIZOID 12/09/2008 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 12/09/2008 311 MO DEPRESSIVE DISORDER NOS 12/09/2008 312.30 I IMPULSE CONTROL DISORDER NOS 12/09/2008 298.9 P PSYCHOSIS NOS 12/09/2008 299.80 DV ASPERGERS 12/09/2008 301.20 PD SCHIZOID 12/09/2008 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 12/09/2008 311 MO DEPRESSIVE DISORDER NOS 12/09/2008 312.30 I IMPULSE CONTROL DISORDER NOS 12/09/2008 GIN BRODERICK DO F 298.9 P PSYCHOSIS NOS 12/09/2008 GIN BRODERICK DO F 299.80 DV ASPERGERS 12/09/2008 GIN BRODERICK DO F 301.20 PD SCHIZOID 12/09/2008 GIN BRODERICK DO F 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 12/09/2008 GIN BRODERICK DO F 311 MO DEPRESSIVE DISORDER NOS 12/09/2008 GIN BRODERICK DO F 312.30 I IMPULSE CONTROL DISORDER NOS 12/09/2008 298.9 P PSYCHOSIS NOS 12/09/2008 299.80 DV ASPERGERS 12/09/2008 301.20 PD SCHIZOID 12/09/2008 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 12/09/2008 311 MO DEPRESSIVE DISORDER NOS 12/09/2008 312.30 I IMPULSE CONTROL DISORDER NOS 12/09/2008 GIN BRODERICK DO F 298.9 P PSYCHOSIS NOS 12/09/2008 GIN BRODERICK DO F 299.80 DV ASPERGERS 12/09/2008 GIN BRODERICK DO F 301.20 PD SCHIZOID 12/09/2008 GIN BRODERICK DO F 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 12/09/2008 GIN BRODERICK DO F 311 MO DEPRESSIVE DISORDER NOS 12/09/2008 GIN BRODERICK DO F 312.30 I IMPULSE CONTROL DISORDER NOS 12/09/2008 298.9 P PSYCHOSIS NOS 12/09/2008 299.80 DV ASPERGERS 12/09/2008 301.20 PD SCHIZOID 12/09/2008 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 12/09/2008 311 MO DEPRESSIVE DISORDER NOS 12/09/2008 312.30 I IMPULSE CONTROL DISORDER NOS 12/09/2008 298.9 P PSYCHOSIS NOS 12/09/2008 299.80 DV ASPERGERS 12/09/2008 301.20 PD SCHIZOID 12/09/2008 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 12/09/2008 311 MO DEPRESSIVE DISORDER NOS 12/09/2008 312.30 I IMPULSE CONTROL DISORDER NOS 12/09/2008 ROYALDER DO, GIN F 298.9 P PSYCHOSIS NOS 12/09/2008 MEGGAN DO GIN F 299.80 DV ASPERGERS 12/09/2008 MEGGAN DO, GIN F 301.20 PD SCHIZOID 12/09/2008 MEGGAN DO, GIN F 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 12/09/2008 MEGGAN DO, GIN F 311 MO DEPRESSIVE DISORDER NOS 12/09/2008 MEGGAN DO, GIN F 312.30 I IMPULSE CONTROL DISORDER NOS 12/09/2008 DERECK PHD, TED A 298.9 P PSYCHOSIS NOS 12/09/2008 DERECK PHD, TED Deluna 299.80 DV ASPERGERS 12/09/2008 DERECK PHD, TED Deluna 301.20 PD SCHIZOID 12/09/2008 DERECK PHD, TED Deluna 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 12/09/2008 DERECK PHD, TED A 311 MO DEPRESSIVE DISORDER NOS 12/09/2008 DERECK PHD, TED A 312.30 I IMPULSE CONTROL DISORDER NOS 12/09/2008 298.9 P PSYCHOSIS NOS 12/09/2008 299.80 DV ASPERGERS 12/09/2008 301.20 PD SCHIZOID 12/09/2008 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 12/09/2008 311 MO DEPRESSIVE DISORDER NOS 12/09/2008 312.30 I IMPULSE CONTROL DISORDER NOS 12/09/2008 298.9 P PSYCHOSIS NOS 12/09/2008 299.80 DV ASPERGERS 12/09/2008 301.20 PD SCHIZOID 12/09/2008 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 12/09/2008 311 MO DEPRESSIVE DISORDER NOS 12/09/2008 312.30 I IMPULSE CONTROL DISORDER NOS 12/09/2008 298.9 P PSYCHOSIS NOS 12/09/2008 299.80 DV ASPERGERS 12/09/2008 301.20 PD SCHIZOID 12/09/2008 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 12/09/2008 311 MO DEPRESSIVE DISORDER NOS 12/09/2008 312.30 I IMPULSE CONTROL DISORDER NOS 12/09/2008 298.9 P PSYCHOSIS NOS 12/09/2008 299.80 DV ASPERGERS 12/09/2008 301.20 PD SCHIZOID 12/09/2008 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 12/09/2008 311 MO DEPRESSIVE DISORDER NOS 12/09/2008 312.30 I IMPULSE CONTROL DISORDER NOS 12/09/2008 298.9 P PSYCHOSIS NOS 12/09/2008 299.80 DV ASPERGERS 12/09/2008 301.20 PD SCHIZOID 12/09/2008 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 12/09/2008 311 MO DEPRESSIVE DISORDER NOS 12/09/2008 312.30 I IMPULSE CONTROL DISORDER NOS 12/09/2008 298.9 P PSYCHOSIS NOS 12/09/2008 299.80 DV ASPERGERS 12/09/2008 301.20 PD SCHIZOID 12/09/2008 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 12/09/2008 311 MO DEPRESSIVE DISORDER NOS 12/09/2008 312.30 I IMPULSE CONTROL DISORDER NOS 12/09/2008 298.9 P PSYCHOSIS NOS 12/09/2008 299.80 DV ASPERGERS 12/09/2008 301.20 PD SCHIZOID 12/09/2008 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 12/09/2008 311 MO DEPRESSIVE DISORDER NOS 12/09/2008 312.30 I IMPULSE CONTROL DISORDER NOS 12/09/2008 298.9 P PSYCHOSIS NOS 12/09/2008 299.80 DV ASPERGERS 12/09/2008 301.20 PD SCHIZOID 12/09/2008 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 12/09/2008 311 MO DEPRESSIVE DISORDER NOS 12/09/2008 312.30 I IMPULSE CONTROL DISORDER NOS 12/09/2008 DERECK PHD, TED A 298.9 P PSYCHOSIS NOS 12/09/2008 DERECK PHD, TED A 299.80 DV ASPERGERS 12/09/2008 DERECK PHD, TED A 301.20 PD SCHIZOID 12/09/2008 DERECK PHD, TED A 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 12/09/2008 DERECK PHD, TED A 311 MO DEPRESSIVE DISORDER NOS 12/09/2008 DERECK PHD, TED A 312.30 I IMPULSE CONTROL DISORDER NOS 12/09/2008 SORIN BRODERICK DOEN F 298.9 P PSYCHOSIS NOS 12/09/2008 SORIN BRODERICK DOEN F 299.80 DV ASPERGERS 12/09/2008 GIN BRODERICK DO F 301.20 PD SCHIZOID 12/09/2008 GIN BRODERICK DO F 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 12/09/2008 SORIN BRODERICK DOEN F 311 MO DEPRESSIVE DISORDER NOS 12/09/2008 GIN BRODERICK DO 312.30 I IMPULSE CONTROL DISORDER NOS 12/09/2008 TED HARDEN PHD A 298.9 P PSYCHOSIS NOS 12/09/2008 TED HARDEN PHD 299.80 DV ASPERGERS 12/09/2008 TED HARDEN PHD 301.20 PD SCHIZOID 12/09/2008 TED HARDEN PHD 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 12/09/2008 TED HARDEN PHD 311 MO DEPRESSIVE DISORDER NOS 12/09/2008 TED HARDEN PHD 312.30 I IMPULSE CONTROL DISORDER NOS 12/09/2008 TED HARDEN PHD 298.9 P PSYCHOSIS NOS 12/09/2008 TED HARDEN PHD 299.80 DV ASPERGERS 12/09/2008 TED HARDEN PHD 301.20 PD SCHIZOID 12/09/2008 TED HARDEN PHD 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 12/09/2008 TED HARDEN PHD 311 MO DEPRESSIVE DISORDER NOS 12/09/2008 TED HARDEN PHD 312.30 I IMPULSE CONTROL DISORDER NOS 12/09/2008 TED HARDEN PHD 298.9 P PSYCHOSIS NOS 12/09/2008 TED HARDEN PHD 299.80 DV ASPERGERS 12/09/2008 TED HARDEN PHD 301.20 PD SCHIZOID 12/09/2008 TED HARDEN PHD 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 12/09/2008 TED HARDEN PHD 311 MO DEPRESSIVE DISORDER NOS 12/09/2008 TED HARDEN PHD 312.30 I IMPULSE CONTROL DISORDER NOS 12/09/2008 TED HARDEN PHD 298.9 P PSYCHOSIS NOS 12/09/2008 TED HARDEN PHD 299.80 DV ASPERGERS 12/09/2008 TED HARDEN PHD 301.20 PD SCHIZOID 12/09/2008 TED HARDEN PHD A 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 12/09/2008 TED HARDEN PHD A 311 MO DEPRESSIVE DISORDER NOS 12/09/2008 TED HARDEN PHD A 312.30 I IMPULSE CONTROL DISORDER NOS 12/09/2008 KURT LUA APRN 298.9 P PSYCHOSIS NOS 12/09/2008 LUA ASSEMBLY MECHANIC, KURT MILTON 299.80 DV ASPERGERS 12/09/2008 LUA ASSEMBLY MECHANIC, KURT CHARLTONH 301.20 PD SCHIZOID 12/09/2008 LUA ASSEMBLY MECHANIC, KURT CHARLTONH 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 12/09/2008 LUA ASSEMBLY MECHANIC, KURT CHARLTONH 311 MO DEPRESSIVE DISORDER NOS 12/09/2008 LUA ASSEMBLY MECHANIC, KURT CHARLTONH 312.30 I IMPULSE CONTROL DISORDER NOS 12/09/2008 DERECK FUNEZ, TED A 298.9 P PSYCHOSIS NOS 12/09/2008 DERECK PHD, TED A 299.80 DV ASPERGERS 12/09/2008 DERECK FUNEZ, TED A 301.20 PD SCHIZOID 12/09/2008 DERECK FUNEZ, TED A 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 12/09/2008 ETD HARDEN PHD A 311 MO DEPRESSIVE DISORDER NOS 12/09/2008 DERECK FUNEZ, TED A 312.30 I IMPULSE CONTROL DISORDER NOS 12/09/2008 DERECK FUNEZ, TED A 298.9 P PSYCHOSIS NOS 12/09/2008 DERECK PHD, TED A 299.80 DV ASPERGERS 12/09/2008 DERECK FUNEZ, TED A 301.20 PD SCHIZOID 12/09/2008 DERECK FUNEZ, TED A 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 12/09/2008 TED HARDEN PHD A 311 MO DEPRESSIVE DISORDER NOS 12/09/2008 TED HARDEN PHD A 312.30 I IMPULSE CONTROL DISORDER NOS 12/09/2008 DEERCK FUNEZ, TED A 298.9 P PSYCHOSIS NOS 12/09/2008 DERECK PHD, TED A 299.80 DV ASPERGERS 12/09/2008 DERECK FUNEZ, TED A 301.20 PD SCHIZOID 12/09/2008 DERECK FUNEZ, TED A 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 12/09/2008 TED HARDEN PHD A 311 MO DEPRESSIVE DISORDER NOS 12/09/2008 TED HARDEN PHD A 312.30 I IMPULSE CONTROL DISORDER NOS 12/09/2008 LUA ASSEMBLY MECHANIC, KURT ROSE 298.9 P PSYCHOSIS NOS 12/09/2008 LUA ASSEMBLY MECHANIC, KURT MILTON 299.80 DV ASPERGERS 12/09/2008 LUA ASSEMBLY MECHANIC, KURT ROSE 301.20 PD SCHIZOID 12/09/2008 LUA ASSEMBLY MECHANIC, KURT ROSE 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 12/09/2008 LUA ASSEMBLY MECHANIC, KURT ROSE 311 MO DEPRESSIVE DISORDER NOS 12/09/2008 LUA ASSEMBLY MECHANIC, KURT ROSE 312.30 I IMPULSE CONTROL DISORDER NOS 12/09/2008 DERECK FUNEZ, TED A 298.9 P PSYCHOSIS NOS 12/09/2008 DERECK PHD, TED A 299.80 DV ASPERGERS 12/09/2008 DERECK PHD, TED A 301.20 PD SCHIZOID 12/09/2008 DERECK FUNEZ, TED A 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 12/09/2008 TED HARDEN PHD A 311 MO DEPRESSIVE DISORDER NOS 12/09/2008 TED HARDEN PHD A 312.30 I IMPULSE CONTROL DISORDER NOS 12/09/2008 LUA ASSEMBLY MECHANIC, KURT ROSE 298.9 P PSYCHOSIS NOS 12/09/2008 LUA ASSEMBLY MECHANIC, KURT ROSE 299.80 DV ASPERGERS 12/09/2008 LUA ASSEMBLY MECHANIC, KURT ROSE 301.20 PD SCHIZOID 12/09/2008 LUA ASSEMBLY MECHANIC, KURT ROSE 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 12/09/2008 LUA ASSEMBLY MECHANICKURT 311 MO DEPRESSIVE DISORDER NOS 12/09/2008 LUA ASSEMBLY MECHANIC, KURT ROSE 312.30 I IMPULSE CONTROL DISORDER NOS 12/09/2008 TED HARDEN PHD A 298.9 P PSYCHOSIS NOS 12/09/2008 DERECK FUNEZ, TED A 299.80 DV ASPERGERS 12/09/2008 DERECK PHD, TED A 301.20 PD SCHIZOID 12/09/2008 DERECK FUNEZ, TED A 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 12/09/2008 TED HARDEN PHD A 311 MO DEPRESSIVE DISORDER NOS 12/09/2008 TED HARDEN PHD A 312.30 I IMPULSE CONTROL DISORDER NOS 12/09/2008 TED HARDEN PHD A 298.9 P PSYCHOSIS NOS 12/09/2008 DERECK FUNEZ, TED A 299.80 DV ASPERGERS 12/09/2008 TED HARDEN PHD A 301.20 PD SCHIZOID 12/09/2008 TED HARDEN PHD A 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 12/09/2008 TED HARDEN PHD 311 MO DEPRESSIVE DISORDER NOS 12/09/2008 TED HARDEN PHD 312.30 I IMPULSE CONTROL DISORDER NOS 12/09/2008 TED HARDEN PHD A 298.9 P PSYCHOSIS NOS 12/09/2008 DERECK FUNEZ, TED Deluna 299.80 DV ASPERGERS 12/09/2008 TED HARDEN PHD A 301.20 PD SCHIZOID 12/09/2008 DERECK FUNEZ, TED A 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 12/09/2008 TED HARDEN PHD 311 MO DEPRESSIVE DISORDER NOS 12/09/2008 TED HARDEN PHD A 312.30 I IMPULSE CONTROL DISORDER NOS 12/09/2008 TED HARDEN PHD A 298.9 P PSYCHOSIS NOS 12/09/2008 TED HARDEN PHD 299.80 DV ASPERGERS 12/09/2008 TED HARDEN PHD 301.20 PD SCHIZOID 12/09/2008 TED HARDEN PHD A 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 12/09/2008 TED HARDEN PHD 311 MO DEPRESSIVE DISORDER NOS 12/09/2008 TED HARDEN PHD 312.30 I IMPULSE CONTROL DISORDER NOS 12/09/2008 TED HARDEN PHD 298.9 P PSYCHOSIS NOS 12/09/2008 TED HARDEN PHD 299.80 DV ASPERGERS 12/09/2008 TED HARDEN PHD 301.20 PD SCHIZOID 12/09/2008 TED HARDEN PHD A 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 12/09/2008 TED HARDEN PHD 311 MO DEPRESSIVE DISORDER NOS 12/09/2008 TED HARDEN PHD A 312.30 I IMPULSE CONTROL DISORDER NOS 12/09/2008 TED HARDEN PHD A 298.9 P PSYCHOSIS NOS 12/09/2008 TED HARDEN PHD A 299.80 DV ASPERGERS 12/09/2008 TED HARDEN PHD A 301.20 PD SCHIZOID 12/09/2008 TED HARDEN PHD A 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 12/09/2008 TED HARDEN PHD 311 MO DEPRESSIVE DISORDER NOS 12/09/2008 TED HARDEN PHD A 312.30 I IMPULSE CONTROL DISORDER NOS 12/09/2008 TED HARDEN PHD A 298.9 P PSYCHOSIS NOS 12/09/2008 TED HARDEN PHD 299.80 DV ASPERGERS 12/09/2008 TED HARDEN PHD A 301.20 PD SCHIZOID 12/09/2008 TED HARDEN PHD 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 12/09/2008 TED HARDEN PHD 311 MO DEPRESSIVE DISORDER NOS 12/09/2008 TED HARDEN PHD 312.30 I IMPULSE CONTROL DISORDER NOS 12/09/2008 TED HARDEN PHD 298.9 P PSYCHOSIS NOS 12/09/2008 TED HARDEN PHD 299.80 DV ASPERGERS 12/09/2008 TED HARDEN PHD 301.20 PD SCHIZOID 12/09/2008 TED HARDEN PHD 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 12/09/2008 TED HARDEN PHD 311 MO DEPRESSIVE DISORDER NOS 12/09/2008 TED HARDEN PHD 312.30 I IMPULSE CONTROL DISORDER NOS 12/09/2008 TED HARDEN PHD 298.9 P PSYCHOSIS NOS 12/09/2008 TED HARDEN PHD 299.80 DV ASPERGERS 12/09/2008 TED HARDEN PHD 301.20 PD SCHIZOID 12/09/2008 TED HARDEN PHD A 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 12/09/2008 TED HARDEN PHD A 311 MO DEPRESSIVE DISORDER NOS 12/09/2008 TED HARDEN PHD A 312.30 I IMPULSE CONTROL DISORDER NOS 12/09/2008 TED HARDEN PHD 298.9 P PSYCHOSIS NOS 12/09/2008 TED HARDEN PHD 299.80 DV ASPERGERS 12/09/2008 TED HARDEN PHD 301.20 PD SCHIZOID 12/09/2008 TED HARDEN PHD A 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 12/09/2008 TED HARDEN PHD A 311 MO DEPRESSIVE DISORDER NOS 12/09/2008 TED HARDEN PHD A 312.30 I IMPULSE CONTROL DISORDER NOS 12/09/2008 TED HARDEN PHD A 298.9 P PSYCHOSIS NOS 12/09/2008 DERECK FUNEZ, TED Deluna 299.80 DV ASPERGERS 12/09/2008 TED HARDEN PHD 301.20 PD SCHIZOID 12/09/2008 DERECK FUNEZ, TED A 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 12/09/2008 TED HARDEN PHD A 311 MO DEPRESSIVE DISORDER NOS 12/09/2008 TED HARDEN PHD A 312.30 I IMPULSE CONTROL DISORDER NOS 12/09/2008 DERECK FUNEZ, TED A 298.9 P PSYCHOSIS NOS 12/09/2008 DERECK FUNEZ, TED A 299.80 DV ASPERGERS 12/09/2008 TED HARDEN PHD 301.20 PD SCHIZOID 12/09/2008 TED HARDEN PHD 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 12/09/2008 TED HARDEN PHD 311 MO DEPRESSIVE DISORDER NOS 12/09/2008 TED HARDEN PHD 312.30 I IMPULSE CONTROL DISORDER NOS 12/09/2008 TED HARDEN PHD A 298.9 P PSYCHOSIS NOS 12/09/2008 TED HARDEN PHD 299.80 DV ASPERGERS 12/09/2008 TED HARDEN PHD 301.20 PD SCHIZOID 12/09/2008 TED HARDEN PHD 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 12/09/2008 TED HARDEN PHD 311 MO DEPRESSIVE DISORDER NOS 12/09/2008 TED HARDEN PHD 312.30 I IMPULSE CONTROL DISORDER NOS 12/09/2008 TED HARDEN PHD A 298.9 P PSYCHOSIS NOS 12/09/2008 TED HARDEN PHD 299.80 DV ASPERGERS 12/09/2008 TED HARDEN PHD A 301.20 PD SCHIZOID 12/09/2008 TED HARDEN PHD 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 12/09/2008 TED HARDEN PHD A 311 MO DEPRESSIVE DISORDER NOS 12/09/2008 TED HARDEN PHD A 312.30 I IMPULSE CONTROL DISORDER NOS 12/09/2008 TED HARDEN PHD A 298.9 P PSYCHOSIS NOS 12/09/2008 BOEKHOUT PHD, TED A 299.80 DV ASPERGERS 12/09/2008 DERECK PHD, TED A 301.20 PD SCHIZOID 12/09/2008 DERECK PHD, TED A 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 12/09/2008 DERECK PHD, TED A 311 MO DEPRESSIVE DISORDER NOS 12/09/2008 DERECK PHD, TED A 312.30 I IMPULSE CONTROL DISORDER NOS 12/09/2008 JONY SOLE SEAMER, KIM M 298.9 P PSYCHOSIS NOS 12/09/2008 JONY SOLE SEAMER, KIM M 299.80 DV ASPERGERS 12/09/2008 JONY SOLE SEAMER, KIM M 301.20 PD SCHIZOID 12/09/2008 JONY SOLE SEAMER, KIM M 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 12/09/2008 JONY SOLE SEAMER, KIM M 311 MO DEPRESSIVE DISORDER NOS 12/09/2008 JONY SOLE SEAMER, KIM M 312.30 I IMPULSE CONTROL DISORDER NOS 12/09/2008 JONY SOLE SEAMER, KIM M 298.9 P PSYCHOSIS NOS 12/09/2008 JONY SOLE SEAMER, KIM M 299.80 DV ASPERGERS 12/09/2008 JONY SOLE SEAMER, KIM M 301.20 PD SCHIZOID 12/09/2008 JONY SOLE SEAMER, KIM M 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 12/09/2008 JONY SOLE SEAMER, KIM M 311 MO DEPRESSIVE DISORDER NOS 12/09/2008 JONY SOLE SEAMER, KIM M 312.30 I IMPULSE CONTROL DISORDER NOS 12/09/2008 HEIDY DDS, BRAULIO D 298.9 P PSYCHOSIS NOS 12/09/2008 HEIDY DDS, BRAULIO D 299.80 DV ASPERGERS 12/09/2008 HEIDY DDS, BRAULIO D 301.20 PD SCHIZOID 12/09/2008 HEIDY DDS, BRAULIO D 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 12/09/2008 HEIDY DDS, BRAULIO D 311 MO DEPRESSIVE DISORDER NOS 12/09/2008 HEIDY DDS, BRAULIO D 312.30 I IMPULSE CONTROL DISORDER NOS 12/09/2008 JONY SOLE SEAMER, KIM M 298.9 P PSYCHOSIS NOS 12/09/2008 JONY SOLE SEAMER, KIM M 299.80 DV ASPERGERS 12/09/2008 JONY SOLE SEAMER, KIM M 301.20 PD SCHIZOID 12/09/2008 JONY SOLE SEAMER, KIM M 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 12/09/2008 JONY SOLE SEAMER, KIM M 311 MO DEPRESSIVE DISORDER NOS 12/09/2008 JONY SOLE SEAMER, KIM M 312.30 I IMPULSE CONTROL DISORDER NOS 12/09/2008 DERECK FUNEZ, TED A 298.9 P PSYCHOSIS NOS 12/09/2008 DERECK PHD, TED A 299.80 DV ASPERGERS 12/09/2008 DERECK PHD, TED A 301.20 PD SCHIZOID 12/09/2008 DERECK PHD, TED A 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 12/09/2008 DERECK PHD, TED A 311 MO DEPRESSIVE DISORDER NOS 12/09/2008 DERECK PHD, TED A 312.30 I IMPULSE CONTROL DISORDER NOS 12/09/2008 JONY SOLE SEAMER, KIM M 298.9 P PSYCHOSIS NOS 12/09/2008 JONY SOLE SEAMER, KIM M 299.80 DV ASPERGERS 12/09/2008 JONY SOLE SEAMER, KIM M 301.20 PD SCHIZOID 12/09/2008 JONY SOLE SEAMER, KIM M 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 12/09/2008 JONY SOLE SEAMER, KIM M 311 MO DEPRESSIVE DISORDER NOS 12/09/2008 JONY SOLE SEAMER, KIM M 312.30 I IMPULSE CONTROL DISORDER NOS 12/23/2008 GIN BRODERICK DO V62.89 OTHER PSYCHOLOGICAL OR PHYSICAL STRESS NOT ELSEWHERE CLASSIFIED 12/23/2008 V62.89 OTHER PSYCHOLOGICAL OR PHYSICAL STRESS NOT ELSEWHERE CLASSIFIED 12/23/2008 V62.89 OTHER PSYCHOLOGICAL OR PHYSICAL STRESS NOT ELSEWHERE CLASSIFIED 12/23/2008 V62.89 OTHER PSYCHOLOGICAL OR PHYSICAL STRESS NOT ELSEWHERE CLASSIFIED 12/23/2008 GIN BRODERICK DO V62.89 OTHER PSYCHOLOGICAL OR PHYSICAL STRESS NOT ELSEWHERE CLASSIFIED 12/23/2008 V62.89 OTHER PSYCHOLOGICAL OR PHYSICAL STRESS NOT ELSEWHERE CLASSIFIED 12/23/2008 GIN BRODERICK DO V62.89 OTHER PSYCHOLOGICAL OR PHYSICAL STRESS NOT ELSEWHERE CLASSIFIED 12/23/2008 V62.89 OTHER PSYCHOLOGICAL OR PHYSICAL STRESS NOT ELSEWHERE CLASSIFIED 12/23/2008 V62.89 OTHER PSYCHOLOGICAL OR PHYSICAL STRESS NOT ELSEWHERE CLASSIFIED 12/23/2008 GIN BRODERICK DO V62.89 OTHER PSYCHOLOGICAL OR PHYSICAL STRESS NOT ELSEWHERE CLASSIFIED 12/23/2008 TED HARDEN PHD A V62.89 OTHER PSYCHOLOGICAL OR PHYSICAL STRESS NOT ELSEWHERE CLASSIFIED 12/23/2008 V62.89 OTHER PSYCHOLOGICAL OR PHYSICAL STRESS NOT ELSEWHERE CLASSIFIED 12/23/2008 V62.89 OTHER PSYCHOLOGICAL OR PHYSICAL STRESS NOT ELSEWHERE CLASSIFIED 12/23/2008 V62.89 OTHER PSYCHOLOGICAL OR PHYSICAL STRESS NOT ELSEWHERE CLASSIFIED 12/23/2008 V62.89 OTHER PSYCHOLOGICAL OR PHYSICAL STRESS NOT ELSEWHERE CLASSIFIED 12/23/2008 V62.89 OTHER PSYCHOLOGICAL OR PHYSICAL STRESS NOT ELSEWHERE CLASSIFIED 12/23/2008 V62.89 OTHER PSYCHOLOGICAL OR PHYSICAL STRESS NOT ELSEWHERE CLASSIFIED 12/23/2008 V62.89 OTHER PSYCHOLOGICAL OR PHYSICAL STRESS NOT ELSEWHERE CLASSIFIED 12/23/2008 V62.89 OTHER PSYCHOLOGICAL OR PHYSICAL STRESS NOT ELSEWHERE CLASSIFIED 12/23/2008 TED HARDEN PHD V62.89 OTHER PSYCHOLOGICAL OR PHYSICAL STRESS NOT ELSEWHERE CLASSIFIED 12/23/2008 GIN BRODERICK DO V62.89 OTHER PSYCHOLOGICAL OR PHYSICAL STRESS NOT ELSEWHERE CLASSIFIED 12/23/2008 TED HARDEN PHD V62.89 OTHER PSYCHOLOGICAL OR PHYSICAL STRESS NOT ELSEWHERE CLASSIFIED 12/23/2008 TED HARDEN PHD V62.89 OTHER PSYCHOLOGICAL OR PHYSICAL STRESS NOT ELSEWHERE CLASSIFIED 12/23/2008 TED HARDEN PHD V62.89 OTHER PSYCHOLOGICAL OR PHYSICAL STRESS NOT ELSEWHERE CLASSIFIED 12/23/2008 TED HARDEN PHD V62.89 OTHER PSYCHOLOGICAL OR PHYSICAL STRESS NOT ELSEWHERE CLASSIFIED 12/23/2008 CHANELL CAMPA KURT MILTON V62.89 OTHER PSYCHOLOGICAL OR PHYSICAL STRESS NOT ELSEWHERE CLASSIFIED 12/23/2008 TED HARDEN PHD V62.89 OTHER PSYCHOLOGICAL OR PHYSICAL STRESS NOT ELSEWHERE CLASSIFIED 12/23/2008 TED HARDEN PHD V62.89 OTHER PSYCHOLOGICAL OR PHYSICAL STRESS NOT ELSEWHERE CLASSIFIED 12/23/2008 TED HARDEN PHD V62.89 OTHER PSYCHOLOGICAL OR PHYSICAL STRESS NOT ELSEWHERE CLASSIFIED 12/23/2008 CHANELL CAMPA KURT MILTON V62.89 OTHER PSYCHOLOGICAL OR PHYSICAL STRESS NOT ELSEWHERE CLASSIFIED 12/23/2008 TED HARDEN PHD V62.89 OTHER PSYCHOLOGICAL OR PHYSICAL STRESS NOT ELSEWHERE CLASSIFIED 12/23/2008 CHANELL CAMPA KURT MILTON V62.89 OTHER PSYCHOLOGICAL OR PHYSICAL STRESS NOT ELSEWHERE CLASSIFIED 12/23/2008 TED HARDEN PHD V62.89 OTHER PSYCHOLOGICAL OR PHYSICAL STRESS NOT ELSEWHERE CLASSIFIED 12/23/2008 TED HARDEN PHD V62.89 OTHER PSYCHOLOGICAL OR PHYSICAL STRESS NOT ELSEWHERE CLASSIFIED 12/23/2008 DERECK TED FUNEZ A V62.89 OTHER PSYCHOLOGICAL OR PHYSICAL STRESS NOT ELSEWHERE CLASSIFIED 12/23/2008 DERECK PHD TED A V62.89 OTHER PSYCHOLOGICAL OR PHYSICAL STRESS NOT ELSEWHERE CLASSIFIED 12/23/2008 DERECK PHD TED A V62.89 OTHER PSYCHOLOGICAL OR PHYSICAL STRESS NOT ELSEWHERE CLASSIFIED 12/23/2008 DERECK PHD TED A V62.89 OTHER PSYCHOLOGICAL OR PHYSICAL STRESS NOT ELSEWHERE CLASSIFIED 12/23/2008 DERECK PHD TED A V62.89 OTHER PSYCHOLOGICAL OR PHYSICAL STRESS NOT ELSEWHERE CLASSIFIED 12/23/2008 DERECK PHD TED A V62.89 OTHER PSYCHOLOGICAL OR PHYSICAL STRESS NOT ELSEWHERE CLASSIFIED 12/23/2008 DERECK PHD TED A V62.89 OTHER PSYCHOLOGICAL OR PHYSICAL STRESS NOT ELSEWHERE CLASSIFIED 12/23/2008 DERECK PHD TED A V62.89 OTHER PSYCHOLOGICAL OR PHYSICAL STRESS NOT ELSEWHERE CLASSIFIED 12/23/2008 DERECK PHD TED A V62.89 OTHER PSYCHOLOGICAL OR PHYSICAL STRESS NOT ELSEWHERE CLASSIFIED 12/23/2008 SALINABRIAN FUNEZ TED A V62.89 OTHER PSYCHOLOGICAL OR PHYSICAL STRESS NOT ELSEWHERE CLASSIFIED 12/23/2008 DERECK PHD TED A V62.89 OTHER PSYCHOLOGICAL OR PHYSICAL STRESS NOT ELSEWHERE CLASSIFIED 12/23/2008 SALINABRIAN FUNEZ TED A V62.89 OTHER PSYCHOLOGICAL OR PHYSICAL STRESS NOT ELSEWHERE CLASSIFIED 12/23/2008 DERECK PHD TED A V62.89 OTHER PSYCHOLOGICAL OR PHYSICAL STRESS NOT ELSEWHERE CLASSIFIED 12/23/2008 KIM SIMONS M V62.89 OTHER PSYCHOLOGICAL OR PHYSICAL STRESS NOT ELSEWHERE CLASSIFIED 12/23/2008 KIM SIMONS M V62.89 OTHER PSYCHOLOGICAL OR PHYSICAL STRESS NOT ELSEWHERE CLASSIFIED 12/23/2008 BRAULIO MOODY DDS V62.89 OTHER PSYCHOLOGICAL OR PHYSICAL STRESS NOT ELSEWHERE CLASSIFIED 12/23/2008 KIM SIMONS M V62.89 OTHER PSYCHOLOGICAL OR PHYSICAL STRESS NOT ELSEWHERE CLASSIFIED 12/23/2008 SALINABRIAN FUNEZ TED A V62.89 OTHER PSYCHOLOGICAL OR PHYSICAL STRESS NOT ELSEWHERE CLASSIFIED 12/23/2008 KIM SIMONS M V62.89 OTHER PSYCHOLOGICAL OR PHYSICAL STRESS NOT ELSEWHERE CLASSIFIED 03/10/2010 GIN BRODERICK DO V58.69 LONG-TERM (CURRENT) USE OF OTHER MEDICATIONS 03/10/2010 V58.69 LONG-TERM ( CURRENT) USE OF OTHER MEDICATIONS 03/10/2010 V58.69 LONG-TERM ( CURRENT) USE OF OTHER MEDICATIONS 03/10/2010 V58.69 LONG-TERM ( CURRENT) USE OF OTHER MEDICATIONS 03/10/2010 GIN BRODERICK DO V58.69 LONG-TERM (CURRENT) USE OF OTHER MEDICATIONS 03/10/2010 V58.69 LONG-TERM ( CURRENT) USE OF OTHER MEDICATIONS 03/10/2010 GIN BRODERICK DO V58.69 LONG-TERM (CURRENT) USE OF OTHER MEDICATIONS 03/10/2010 V58.69 LONG-TERM ( CURRENT) USE OF OTHER MEDICATIONS 03/10/2010 V58.69 LONG-TERM ( CURRENT) USE OF OTHER MEDICATIONS 03/10/2010 GIN BRODERICK DO V58.69 LONG-TERM (CURRENT) USE OF OTHER MEDICATIONS 03/10/2010 TED HARDEN PHD V58.69 LONG-TERM (CURRENT) USE OF OTHER MEDICATIONS 03/10/2010 V58.69 LONG-TERM ( CURRENT) USE OF OTHER MEDICATIONS 03/10/2010 V58.69 LONG-TERM ( CURRENT) USE OF OTHER MEDICATIONS 03/10/2010 V58.69 LONG-TERM ( CURRENT) USE OF OTHER MEDICATIONS 03/10/2010 V58.69 LONG-TERM ( CURRENT) USE OF OTHER MEDICATIONS 03/10/2010 V58.69 LONG-TERM ( CURRENT) USE OF OTHER MEDICATIONS 03/10/2010 V58.69 LONG-TERM ( CURRENT) USE OF OTHER MEDICATIONS 03/10/2010 V58.69 LONG-TERM ( CURRENT) USE OF OTHER MEDICATIONS 03/10/2010 V58.69 LONG-TERM ( CURRENT) USE OF OTHER MEDICATIONS 03/10/2010 TED HARDEN PHD V58.69 LONG-TERM (CURRENT) USE OF OTHER MEDICATIONS 03/10/2010 GIN BRODERICK DO V58.69 LONG-TERM (CURRENT) USE OF OTHER MEDICATIONS 03/10/2010 TED HARDEN PHD V58.69 LONG-TERM (CURRENT) USE OF OTHER MEDICATIONS 03/10/2010 TED HARDEN PHD V58.69 LONG-TERM (CURRENT) USE OF OTHER MEDICATIONS 03/10/2010 TED HARDEN PHD V58.69 LONG-TERM (CURRENT) USE OF OTHER MEDICATIONS 03/10/2010 TED HARDEN PHD A V58.69 LONG-TERM (CURRENT) USE OF OTHER MEDICATIONS 03/10/2010 CHANELL CAMPA KURT ROSE V58.69 LONG-TERM (CURRENT) USE OF OTHER MEDICATIONS 03/10/2010 TED HARDEN PHD A V58.69 LONG-TERM (CURRENT) USE OF OTHER MEDICATIONS 03/10/2010 TED HARDEN PHD A V58.69 LONG-TERM (CURRENT) USE OF OTHER MEDICATIONS 03/10/2010 DERECK FUNEZ, TED A V58.69 LONG-TERM (CURRENT) USE OF OTHER MEDICATIONS 03/10/2010 CHANELL CAMPA KURT ROSE V58.69 LONG-TERM (CURRENT) USE OF OTHER MEDICATIONS 03/10/2010 TED HARDEN PHD A V58.69 LONG-TERM (CURRENT) USE OF OTHER MEDICATIONS 03/10/2010 CHANELL CAMPA KURT ROSE V58.69 LONG-TERM (CURRENT) USE OF OTHER MEDICATIONS 03/10/2010 TED HARDEN PHD A V58.69 LONG-TERM (CURRENT) USE OF OTHER MEDICATIONS 03/10/2010 TED HARDEN PHD A V58.69 LONG-TERM (CURRENT) USE OF OTHER MEDICATIONS 03/10/2010 TED HARDEN PHD A V58.69 LONG-TERM (CURRENT) USE OF OTHER MEDICATIONS 03/10/2010 TED HARDEN PHD A V58.69 LONG-TERM (CURRENT) USE OF OTHER MEDICATIONS 03/10/2010 TED HARDEN PHD A V58.69 LONG-TERM (CURRENT) USE OF OTHER MEDICATIONS 03/10/2010 TED HARDEN PHD A V58.69 LONG-TERM (CURRENT) USE OF OTHER MEDICATIONS 03/10/2010 TED HARDEN PHD A V58.69 LONG-TERM (CURRENT) USE OF OTHER MEDICATIONS 03/10/2010 TED HARDEN PHD A V58.69 LONG-TERM (CURRENT) USE OF OTHER MEDICATIONS 03/10/2010 TED HARDEN PHD A V58.69 LONG-TERM (CURRENT) USE OF OTHER MEDICATIONS 03/10/2010 TED HARDEN PHD A V58.69 LONG-TERM (CURRENT) USE OF OTHER MEDICATIONS 03/10/2010 TED HARDEN PHD A V58.69 LONG-TERM (CURRENT) USE OF OTHER MEDICATIONS 03/10/2010 TED HARDEN PHD V58.69 LONG-TERM (CURRENT) USE OF OTHER MEDICATIONS 03/10/2010 TED HARDEN PHD V58.69 LONG-TERM (CURRENT) USE OF OTHER MEDICATIONS 03/10/2010 TED HARDEN PHD V58.69 LONG-TERM (CURRENT) USE OF OTHER MEDICATIONS 03/10/2010 TED HARDEN PHD V58.69 LONG-TERM (CURRENT) USE OF OTHER MEDICATIONS 03/10/2010 JONY SOLE SEAMER, KIM M V58.69 LONG-TERM (CURRENT) USE OF OTHER MEDICATIONS 03/10/2010 JONY SOLE SEAMER, KIM M V58.69 LONG-TERM (CURRENT) USE OF OTHER MEDICATIONS 03/10/2010 HEIDY LEONSBRAULIO V58.69 LONG-TERM (CURRENT) USE OF OTHER MEDICATIONS 03/10/2010 JONY SOLE SEAMER, KIM M V58.69 LONG-TERM (CURRENT) USE OF OTHER MEDICATIONS 03/10/2010 TED HARDEN PHD V58.69 LONG-TERM (CURRENT) USE OF OTHER MEDICATIONS 03/10/2010 JONY SOLE SEAMER, KIM M V58.69 LONG-TERM (CURRENT) USE OF OTHER MEDICATIONS 07/10/2010 GIN BRODERICK DO 307.3 TIC DISORDER 07/10/2010 307.3 TIC DISORDER 07/10/2010 307.3 TIC DISORDER 07/10/2010 307.3 TIC DISORDER 07/10/2010 GIN BRODERICK DO 307.3 TIC DISORDER 07/10/2010 307.3 TIC DISORDER 07/10/2010 GIN BRODERICK DO 307.3 TIC DISORDER 07/10/2010 307.3 TIC DISORDER 07/10/2010 307.3 TIC DISORDER 07/10/2010 GIN BRODERICK DO 307.3 TIC DISORDER 07/10/2010 TED HARDEN PHD 307.3 TIC DISORDER 07/10/2010 307.3 TIC DISORDER 07/10/2010 307.3 TIC DISORDER 07/10/2010 307.3 TIC DISORDER 07/10/2010 307.3 TIC DISORDER 07/10/2010 307.3 TIC DISORDER 07/10/2010 307.3 TIC DISORDER 07/10/2010 307.3 TIC DISORDER 07/10/2010 307.3 TIC DISORDER 07/10/2010 BOEKHOUT PHD, TED A 307.3 TIC DISORDER 07/10/2010 MEGGAN COLEY GIN Asha 307.3 TIC DISORDER 07/10/2010 BOEKHOUT PHD, TED A 307.3 TIC DISORDER 07/10/2010 BOEKHOUT PHD, TED A 307.3 TIC DISORDER 07/10/2010 BOEKHOUT PHD, TED A 307.3 TIC DISORDER 07/10/2010 BOEKHOUT PHD, TED A 307.3 TIC DISORDER 07/10/2010 LUA ASSEMBLY MECHANIC, KURT ROSE 307.3 TIC DISORDER 07/10/2010 BOEKHOUT PHD, TED A 307.3 TIC DISORDER 07/10/2010 BOEKHOUT PHD, TED A 307.3 TIC DISORDER 07/10/2010 BOEKHOUT PHD, TED A 307.3 TIC DISORDER 07/10/2010 CHANELL BLACKMANN, KURT ROSE 307.3 TIC DISORDER 07/10/2010 BOEOUT PHD, TED A 307.3 TIC DISORDER 07/10/2010 CHANELL ASSEMBLY MECHANIC, KURT ROSE 307.3 TIC DISORDER 07/10/2010 BOEOUT PHD, TED A 307.3 TIC DISORDER 07/10/2010 BOENICOLEOUT PHD, TED A 307.3 TIC DISORDER 07/10/2010 BOENICOLEOUT PHD, TED A 307.3 TIC DISORDER 07/10/2010 BOENICOLEOUT PHD, TED A 307.3 TIC DISORDER 07/10/2010 BOENICOLEOUT PHD, TED A 307.3 TIC DISORDER 07/10/2010 BOENICOLEOUT PHD, TED A 307.3 TIC DISORDER 07/10/2010 BOENICOLEOUT PHD, TED A 307.3 TIC DISORDER 07/10/2010 BOEKHOUT PHD, TED A 307.3 TIC DISORDER 07/10/2010 BOEKHOUT PHD, TED A 307.3 TIC DISORDER 07/10/2010 BOENICOLEOUT PHD, TED A 307.3 TIC DISORDER 07/10/2010 BOEKHOUT PHD, TED A 307.3 TIC DISORDER 07/10/2010 BOENICOLEOUT PHD, TED A 307.3 TIC DISORDER 07/10/2010 BOENICOLEOUT PHD, TED A 307.3 TIC DISORDER 07/10/2010 BOENICOLEOUT PHD, TED A 307.3 TIC DISORDER 07/10/2010 TED HARDEN PHD 307.3 TIC DISORDER 07/10/2010 JONY SOLE SEAMER, KIM M 307.3 TIC DISORDER 07/10/2010 JONY SOLE SEAMER, KIM M 307.3 TIC DISORDER 07/10/2010 HEIDY LEONS, BRAULIO Lyle 307.3 TIC DISORDER 07/10/2010 JONY SOLE SEAMER, KIM M 307.3 TIC DISORDER 07/10/2010 TED HARDEN PHD 307.3 TIC DISORDER 07/10/2010 JONY SOLE SEAMER, KIM M 307.3 TIC DISORDER 07/24/2010 GIN BRODERICK DO 299.90 DV PER DEV DIS 07/24/2010 GIN BRODERICK DO F 312.34 INTERMITTENT EXPLOSIVE DISORDER 07/24/2010 299.90 DV PER DEV DIS 07/24/2010 312.34 INTERMITTENT EXPLOSIVE DISORDER 07/24/2010 299.90 DV PER DEV DIS 07/24/2010 312.34 INTERMITTENT EXPLOSIVE DISORDER 07/24/2010 299.90 DV PER DEV DIS 07/24/2010 312.34 INTERMITTENT EXPLOSIVE DISORDER 07/24/2010 GIN BRODERICK DO F 299.90 DV PER DEV DIS 07/24/2010 GIN BRODERICK DO F 312.34 INTERMITTENT EXPLOSIVE DISORDER 07/24/2010 299.90 DV PER DEV DIS 07/24/2010 312.34 INTERMITTENT EXPLOSIVE DISORDER 07/24/2010 GIN BRODERICK DO F 299.90 DV PER DEV DIS 07/24/2010 GIN BRODERICK DO F 312.34 INTERMITTENT EXPLOSIVE DISORDER 07/24/2010 299.90 DV PER DEV DIS 07/24/2010 312.34 INTERMITTENT EXPLOSIVE DISORDER 07/24/2010 299.90 DV PER DEV DIS 07/24/2010 312.34 INTERMITTENT EXPLOSIVE DISORDER 07/24/2010 GIN BRODERICK DO F 299.90 DV PER DEV DIS 07/24/2010 GIN BRODERICK DO F 312.34 INTERMITTENT EXPLOSIVE DISORDER 07/24/2010 TED HARDEN PHD 299.90 DV PER DEV DIS 07/24/2010 TED HARDEN PHD 312.34 INTERMITTENT EXPLOSIVE DISORDER 07/24/2010 299.90 DV PER DEV DIS 07/24/2010 312.34 INTERMITTENT EXPLOSIVE DISORDER 07/24/2010 299.90 DV PER DEV DIS 07/24/2010 312.34 INTERMITTENT EXPLOSIVE DISORDER 07/24/2010 299.90 DV PER DEV DIS 07/24/2010 312.34 INTERMITTENT EXPLOSIVE DISORDER 07/24/2010 299.90 DV PER DEV DIS 07/24/2010 312.34 INTERMITTENT EXPLOSIVE DISORDER 07/24/2010 299.90 DV PER DEV DIS 07/24/2010 312.34 INTERMITTENT EXPLOSIVE DISORDER 07/24/2010 299.90 DV PER DEV DIS 07/24/2010 312.34 INTERMITTENT EXPLOSIVE DISORDER 07/24/2010 299.90 DV PER DEV DIS 07/24/2010 312.34 INTERMITTENT EXPLOSIVE DISORDER 07/24/2010 299.90 DV PER DEV DIS 07/24/2010 312.34 INTERMITTENT EXPLOSIVE DISORDER 07/24/2010 TED HARDEN PHD 299.90 DV PER DEV DIS 07/24/2010 TED HARDEN PHD 312.34 INTERMITTENT EXPLOSIVE DISORDER 07/24/2010 MEGGAN DOSORINEN F 299.90 DV PER DEV DIS 07/24/2010 MEGGAN DOGIN F 312.34 INTERMITTENT EXPLOSIVE DISORDER 07/24/2010 TED HARDEN PHD 299.90 DV PER DEV DIS 07/24/2010 TED HARDEN PHD 312.34 INTERMITTENT EXPLOSIVE DISORDER 07/24/2010 TED HARDEN PHD 299.90 DV PER DEV DIS 07/24/2010 TED HARDEN PHD 312.34 INTERMITTENT EXPLOSIVE DISORDER 07/24/2010 TED HARDEN PHD 299.90 DV PER DEV DIS 07/24/2010 TED HARDEN PHD 312.34 INTERMITTENT EXPLOSIVE DISORDER 07/24/2010 TED HARDEN PHD 299.90 DV PER DEV DIS 07/24/2010 TED HARDEN PHD 312.34 INTERMITTENT EXPLOSIVE DISORDER 07/24/2010 CHANELL CAMPA, KURT ROSE 299.90 DV PER DEV DIS 07/24/2010 CHANELL CAMPA, KURT ROSE 312.34 INTERMITTENT EXPLOSIVE DISORDER 07/24/2010 TED HARDEN PHD 299.90 DV PER DEV DIS 07/24/2010 TED HARDEN PHD 312.34 INTERMITTENT EXPLOSIVE DISORDER 07/24/2010 TED HARDEN PHD 299.90 DV PER DEV DIS 07/24/2010 BOEKHOUT PHD, TED A 312.34 INTERMITTENT EXPLOSIVE DISORDER 07/24/2010 DERECK PHD, TED A 299.90 DV PER DEV DIS 07/24/2010 DERECK PHD, TED A 312.34 INTERMITTENT EXPLOSIVE DISORDER 07/24/2010 LUA ASSEMBLY MECHANIC, KURT ROSE 299.90 DV PER DEV DIS 07/24/2010 LUA ASSEMBLY MECHANIC, KURT ROSE 312.34 INTERMITTENT EXPLOSIVE DISORDER 07/24/2010 BOEGREG PHD, TED A 299.90 DV PER DEV DIS 07/24/2010 DERECK PHD, TED A 312.34 INTERMITTENT EXPLOSIVE DISORDER 07/24/2010 LUA ASSEMBLY MECHANIC, KURT ROSE 299.90 DV PER DEV DIS 07/24/2010 LUA ASSEMBLY MECHANIC, KURT ROSE 312.34 INTERMITTENT EXPLOSIVE DISORDER 07/24/2010 BOEGREG PHD, TED A 299.90 DV PER DEV DIS 07/24/2010 TED HARDEN PHD A 312.34 INTERMITTENT EXPLOSIVE DISORDER 07/24/2010 TED HARDEN PHD A 299.90 DV PER DEV DIS 07/24/2010 TED HARDEN PHD A 312.34 INTERMITTENT EXPLOSIVE DISORDER 07/24/2010 DERECK PHDTED A 299.90 DV PER DEV DIS 07/24/2010 TED HARDEN PHD A 312.34 INTERMITTENT EXPLOSIVE DISORDER 07/24/2010 TED HARDEN PHD A 299.90 DV PER DEV DIS 07/24/2010 TED HARDEN PHD A 312.34 INTERMITTENT EXPLOSIVE DISORDER 07/24/2010 TED HARDEN PHD A 299.90 DV PER DEV DIS 07/24/2010 TED HARDEN PHD A 312.34 INTERMITTENT EXPLOSIVE DISORDER 07/24/2010 DERECK PHDTED A 299.90 DV PER DEV DIS 07/24/2010 DERECK PHDTED A 312.34 INTERMITTENT EXPLOSIVE DISORDER 07/24/2010 TED HARDEN PHD A 299.90 DV PER DEV DIS 07/24/2010 TED HARDEN PHD A 312.34 INTERMITTENT EXPLOSIVE DISORDER 07/24/2010 TED HARDEN PHD A 299.90 DV PER DEV DIS 07/24/2010 TED HARDEN PHD A 312.34 INTERMITTENT EXPLOSIVE DISORDER 07/24/2010 TED HARDEN PHD A 299.90 DV PER DEV DIS 07/24/2010 DERECK PHDTED A 312.34 INTERMITTENT EXPLOSIVE DISORDER 07/24/2010 DERECK PHDTED A 299.90 DV PER DEV DIS 07/24/2010 DERECK PHDTED A 312.34 INTERMITTENT EXPLOSIVE DISORDER 07/24/2010 DERECK PHD, TED A 299.90 DV PER DEV DIS 07/24/2010 DERECK PHDTED A 312.34 INTERMITTENT EXPLOSIVE DISORDER 07/24/2010 DERECK PHD, TED A 299.90 DV PER DEV DIS 07/24/2010 DERECK PHDTED A 312.34 INTERMITTENT EXPLOSIVE DISORDER 07/24/2010 TED HARDEN PHD A 299.90 DV PER DEV DIS 07/24/2010 DERECK PHDTED A 312.34 INTERMITTENT EXPLOSIVE DISORDER 07/24/2010 DERECK PHDTED A 299.90 DV PER DEV DIS 07/24/2010 TED HARDEN PHD A 312.34 INTERMITTENT EXPLOSIVE DISORDER 07/24/2010 TED HARDEN PHD A 299.90 DV PER DEV DIS 07/24/2010 DERECK PHDTED A 312.34 INTERMITTENT EXPLOSIVE DISORDER 07/24/2010 KIM SIMONS M 299.90 DV PER DEV DIS 07/24/2010 KIM SIMONS M 312.34 INTERMITTENT EXPLOSIVE DISORDER 07/24/2010 KIM SIMONS M 299.90 DV PER DEV DIS 07/24/2010 KIM SIMONS M 312.34 INTERMITTENT EXPLOSIVE DISORDER 07/24/2010 HEIDY LEONSBRAULIO D 299.90 DV PER DEV DIS 07/24/2010 HEIDY DDSBRAULIO D 312.34 INTERMITTENT EXPLOSIVE DISORDER 07/24/2010 JONY VICK KIM M 299.90 DV PER DEV DIS 07/24/2010 KIM SIMONS M 312.34 INTERMITTENT EXPLOSIVE DISORDER 07/24/2010 TED HARDEN PHD A 299.90 DV PER DEV DIS 07/24/2010 TED HARDEN PHD A 312.34 INTERMITTENT EXPLOSIVE DISORDER 07/24/2010 KIM SIMONS M 299.90 DV PER DEV DIS 07/24/2010 KIM SIMONS M 312.34 INTERMITTENT EXPLOSIVE DISORDER 12/21/2010 GIN BRODERICK DO 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 12/21/2010 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 12/21/2010 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 12/21/2010 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 12/21/2010 GIN BRODERICK DO 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 12/21/2010 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 12/21/2010 GIN BRODERICK DO 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 12/21/2010 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 12/21/2010 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 12/21/2010 GIN BRODERICK DO 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 12/21/2010 TED HARDEN PHD 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 12/21/2010 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 12/21/2010 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 12/21/2010 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 12/21/2010 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 12/21/2010 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 12/21/2010 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 12/21/2010 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 12/21/2010 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 12/21/2010 TED HARDEN PHD 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 12/21/2010 GIN BRODERICK DO 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 12/21/2010 TED HARDEN PHD 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 12/21/2010 TED HARDEN PHD 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 12/21/2010 TED HARDEN PHD 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 12/21/2010 TED HARDEN PHD 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 12/21/2010 CHANELL CAMPA KURT CHARLTONH 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 12/21/2010 [facility] TED FUNEZ 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 12/21/2010 [facility] PHDTED 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 12/21/2010 CHANELL CAMPA KURT [place] 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 12/21/2010 [facility] 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 12/21/2010 CHANELL CAMPA KURT [place] 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 12/21/2010 [facility] TED FUNEZ 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 12/21/[facility] 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 12/21/[facility] 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 12/21/2010 [facility] TED FUNEZ 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 12/21/2010 [facility] TED FUNEZ 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 12/21/2010 [facility] TED FUNEZ 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 12/21/2010 [facility] TED FUNEZ 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 12/21/2010 [facility] TED FUNEZ 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 12/21/2010 [facility] TED FUNEZ 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 12/21/2010 [facility] TED FUNEZ 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 12/21/2010 [facility] TED FUNEZ 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 12/21/2010 [facility] TED FUNEZ 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 12/21/2010 [facility] TED FUNEZ 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 12/21/2010 TED HARDEN PHD 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 12/21/2010 TED HARDEN PHD 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 12/21/2010 KIM SIMONS 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 12/21/2010 KIM SIMONS 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 12/21/2010 HEIDY LEONSBRAULIO 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 12/21/2010 KIM SIMONS 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 12/21/2010 TED HARDEN PHD 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 12/21/2010 KIM SIMONS 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 10/01/2011 GIN BRODERICK DO 299.00 AUTISTIC DISORDER CURRENT OR ACTIVE STATE 10/01/2011 GIN BRODERICK DO 300.02 AN GEN ANXIETY 10/01/2011 299.00 AUTISTIC DISORDER CURRENT OR ACTIVE STATE 10/01/2011 300.02 AN GEN ANXIETY 10/01/2011 299.00 AUTISTIC DISORDER CURRENT OR ACTIVE STATE 10/01/2011 300.02 AN GEN ANXIETY 10/01/2011 299.00 AUTISTIC DISORDER CURRENT OR ACTIVE STATE 10/01/2011 300.02 AN GEN ANXIETY 10/01/2011 GIN BRODERICK DO 299.00 AUTISTIC DISORDER CURRENT OR ACTIVE STATE 10/01/2011 GIN BRODERICK DO 300.02 AN GEN ANXIETY 10/01/2011 299.00 AUTISTIC DISORDER CURRENT OR ACTIVE STATE 10/01/2011 300.02 AN GEN ANXIETY 10/01/2011 GIN BRODERICK DO 299.00 AUTISTIC DISORDER CURRENT OR ACTIVE STATE 10/01/2011 GIN BRODERICK DO 300.02 AN GEN ANXIETY 10/01/2011 299.00 AUTISTIC DISORDER CURRENT OR ACTIVE STATE 10/01/2011 300.02 AN GEN ANXIETY 10/01/2011 299.00 AUTISTIC DISORDER CURRENT OR ACTIVE STATE 10/01/2011 300.02 AN GEN ANXIETY 10/01/2011 GIN BRODERICK DO 299.00 AUTISTIC DISORDER CURRENT OR ACTIVE STATE 10/01/2011 GIN BRODERICK DO 300.02 AN GEN ANXIETY 10/01/2011 TED HARDEN PHD 299.00 AUTISTIC DISORDER CURRENT OR ACTIVE STATE 10/01/2011 TED HARDEN PHD 300.02 AN GEN ANXIETY 10/01/2011 299.00 AUTISTIC DISORDER CURRENT OR ACTIVE STATE 10/01/2011 300.02 AN GEN ANXIETY 10/01/2011 299.00 AUTISTIC DISORDER CURRENT OR ACTIVE STATE 10/01/2011 300.02 AN GEN ANXIETY 10/01/2011 299.00 AUTISTIC DISORDER CURRENT OR ACTIVE STATE 10/01/2011 300.02 AN GEN ANXIETY 10/01/2011 299.00 AUTISTIC DISORDER CURRENT OR ACTIVE STATE 10/01/2011 300.02 AN GEN ANXIETY 10/01/2011 299.00 AUTISTIC DISORDER CURRENT OR ACTIVE STATE 10/01/2011 300.02 AN GEN ANXIETY 10/01/2011 299.00 AUTISTIC DISORDER CURRENT OR ACTIVE STATE 10/01/2011 300.02 AN GEN ANXIETY 10/01/2011 299.00 AUTISTIC DISORDER CURRENT OR ACTIVE STATE 10/01/2011 300.02 AN GEN ANXIETY 10/01/2011 299.00 AUTISTIC DISORDER CURRENT OR ACTIVE STATE 10/01/2011 300.02 AN GEN ANXIETY 10/01/2011 TED HARDEN PHD 299.00 AUTISTIC DISORDER CURRENT OR ACTIVE STATE 10/01/2011 TED HARDEN PHD 300.02 AN GEN ANXIETY 10/01/2011 GIN BRODERICK DO 299.00 AUTISTIC DISORDER CURRENT OR ACTIVE STATE 10/01/2011 GIN BRODERICK DO 300.02 AN GEN ANXIETY 10/01/2011 TED HARDEN PHD 299.00 AUTISTIC DISORDER CURRENT OR ACTIVE STATE 10/01/2011 TED HARDEN PHD 300.02 AN GEN ANXIETY 10/01/2011 TED HARDEN PHD 299.00 AUTISTIC DISORDER CURRENT OR ACTIVE STATE 10/01/2011 TED HARDEN PHD 300.02 AN GEN ANXIETY 10/01/2011 TED HARDEN PHD 299.00 AUTISTIC DISORDER CURRENT OR ACTIVE STATE 10/01/2011 TED HARDEN PHD 300.02 AN GEN ANXIETY 10/01/2011 TED HARDEN PHD 299.00 AUTISTIC DISORDER CURRENT OR ACTIVE STATE 10/01/2011 TED HARDEN PHD 300.02 AN GEN ANXIETY 10/01/2011 CHANELL CAMPA KURT ROSE 299.00 AUTISTIC DISORDER CURRENT OR ACTIVE STATE 10/01/2011 CHANELL CAMPA KURT RSOE 300.02 AN GEN ANXIETY 10/01/2011 BOENICOLEOUT PHD, TED A 299.00 AUTISTIC DISORDER CURRENT OR ACTIVE STATE 10/01/2011 BOENICOLEOUT PHD, TED A 300.02 AN GEN ANXIETY 10/01/2011 BOENICOLEOUT PHD, TED A 299.00 AUTISTIC DISORDER CURRENT OR ACTIVE STATE 10/01/2011 BOENICOLEOUT PHD, TED A 300.02 AN GEN ANXIETY 10/01/2011 BOENICOLEOUT PHD, TED A 299.00 AUTISTIC DISORDER CURRENT OR ACTIVE STATE 10/01/2011 BOENICOLEOUT PHD, TED A 300.02 AN GEN ANXIETY 10/01/2011 CHANELL CAMPA KURT ROSE 299.00 AUTISTIC DISORDER CURRENT OR ACTIVE STATE 10/01/2011 LUAAAYUSH CAMPA KURT ROSE 300.02 AN GEN ANXIETY 10/01/2011 BOENICOLEOUT PHD, TED A 299.00 AUTISTIC DISORDER CURRENT OR ACTIVE STATE 10/01/2011 BOENICOLEOUT PHD, TED A 300.02 AN GEN ANXIETY 10/01/2011 LUA ASSEMBLY MECHANIC, KURT ROSE 299.00 AUTISTIC DISORDER CURRENT OR ACTIVE STATE 10/01/2011 LUAAAYUSH CAMPA KURT ROSE 300.02 AN GEN ANXIETY 10/01/2011 BOEGREG PHD, TED A 299.00 AUTISTIC DISORDER CURRENT OR ACTIVE STATE 10/01/2011 BOEGREG PHD, TED A 300.02 AN GEN ANXIETY 10/01/2011 BOENICOLEOUT PHD, TED A 299.00 AUTISTIC DISORDER CURRENT OR ACTIVE STATE 10/01/2011 BOENICOLEOUT PHD, TED A 300.02 AN GEN ANXIETY 10/01/2011 BOENICOLEOUT PHD, TED A 299.00 AUTISTIC DISORDER CURRENT OR ACTIVE STATE 10/01/2011 BOENICOLEOUT PHD, TED A 300.02 AN GEN ANXIETY 10/01/2011 BOENICOLEOUT PHD, TED A 299.00 AUTISTIC DISORDER CURRENT OR ACTIVE STATE 10/01/2011 BOENICOLEOUT PHD, TED A 300.02 AN GEN ANXIETY 10/01/2011 BOENICOLEOUT PHD, TED A 299.00 AUTISTIC DISORDER CURRENT OR ACTIVE STATE 10/01/2011 BOEGREG PHD, TED A 300.02 AN GEN ANXIETY 10/01/2011 [facility] PHD, TED A 299.00 AUTISTIC DISORDER CURRENT OR ACTIVE STATE 10/01/2011 [facility] PHD, TED A 300.02 AN GEN ANXIETY 10/01/2011 [facility] PHD, TED A 299.00 AUTISTIC DISORDER CURRENT OR ACTIVE STATE 10/01/2011 [facility] PHD, TED A 300.02 AN GEN ANXIETY 10/01/2011 [facility] PHD, TED A 299.00 AUTISTIC DISORDER CURRENT OR ACTIVE STATE 10/01/2011 [facility] PHD, TED A 300.02 AN GEN ANXIETY 10/01/2011 [facility] PHD, TED A 299.00 AUTISTIC DISORDER CURRENT OR ACTIVE STATE 10/01/2011 [facility] PHD, TED A 300.02 AN GEN ANXIETY 10/01/2011 [facility] PHD, TED A 299.00 AUTISTIC DISORDER CURRENT OR ACTIVE STATE 10/01/2011 [facility] PHD, TED A 300.02 AN GEN ANXIETY 10/01/2011 [facility] PHD, TED A 299.00 AUTISTIC DISORDER CURRENT OR ACTIVE STATE 10/01/2011 [facility] PHD, TED A 300.02 AN GEN ANXIETY 10/01/2011 [facility] PHD, TED A 299.00 AUTISTIC DISORDER CURRENT OR ACTIVE STATE 10/01/2011 [facility] PHD, TED A 300.02 AN GEN ANXIETY 10/01/2011 [facility] PHD, TED A 299.00 AUTISTIC DISORDER CURRENT OR ACTIVE STATE 10/01/2011 [facility] PHD, TED A 300.02 AN GEN ANXIETY 10/01/2011 [facility] PHD, TED A 299.00 AUTISTIC DISORDER CURRENT OR ACTIVE STATE 10/01/2011 [facility] PHD, TED A 300.02 AN GEN ANXIETY 10/01/2011 [facility] PHD, TED A 299.00 AUTISTIC DISORDER CURRENT OR ACTIVE STATE 10/01/2011 [facility] PHD, TED A 300.02 AN GEN ANXIETY 10/01/2011 JONY SOLE SEAMER, KIM M 299.00 AUTISTIC DISORDER CURRENT OR ACTIVE STATE 10/01/2011 JONY SOLE SEAMER, KIM M 300.02 AN GEN ANXIETY 10/01/2011 JONY SOLE SEAMER, KIM M 299.00 AUTISTIC DISORDER CURRENT OR ACTIVE STATE 10/01/2011 JONY SOLE SEAMER, KIM M 300.02 AN GEN ANXIETY 10/01/2011 HEIDY LEONS, BRAULIO D 299.00 AUTISTIC DISORDER CURRENT OR ACTIVE STATE 10/01/2011 HEIDY DDS, BRAULIO D 300.02 AN GEN ANXIETY 10/01/2011 JONY SOLE SEAMER, KIM M 299.00 AUTISTIC DISORDER CURRENT OR ACTIVE STATE 10/01/2011 JONY SOLE SEAMER, KIM M 300.02 AN GEN ANXIETY 10/01/2011 TED HARDEN PHD 299.00 AUTISTIC DISORDER CURRENT OR ACTIVE STATE 10/01/2011 TED HARDEN PHD 300.02 AN GEN ANXIETY 10/01/2011 JONY SOLE SEAMER, KIM M 299.00 AUTISTIC DISORDER CURRENT OR ACTIVE STATE 10/01/2011 JONY SOLE SEAMER, KIM M 300.02 AN GEN ANXIETY 01/10/2012 GIN BRODERICK DO 296.90 MOOD DISORDER 01/10/2012 296.90 MOOD DISORDER 01/10/2012 296.90 MOOD DISORDER 01/10/2012 296.90 MOOD DISORDER 01/10/2012 GIN BRODERICK DO 296.90 MOOD DISORDER 01/10/2012 296.90 MOOD DISORDER 01/10/2012 GIN BRODERICK DO 296.90 MOOD DISORDER 01/10/2012 296.90 MOOD DISORDER 01/10/2012 296.90 MOOD DISORDER 01/10/2012 GIN BRODERICK DO 296.90 MOOD DISORDER 01/10/2012 TED HARDEN PHD 296.90 MOOD DISORDER 01/10/2012 296.90 MOOD DISORDER 01/10/2012 296.90 MOOD DISORDER 01/10/2012 296.90 MOOD DISORDER 01/10/2012 296.90 MOOD DISORDER 01/10/2012 296.90 MOOD DISORDER 01/10/2012 296.90 MOOD DISORDER 01/10/2012 296.90 MOOD DISORDER 01/10/2012 296.90 MOOD DISORDER 01/10/2012 TED HARDEN PHD 296.90 MOOD DISORDER 01/10/2012 GIN BRODERICK DO 296.90 MOOD DISORDER 01/10/2012 TED HARDEN PHD 296.90 MOOD DISORDER 01/10/2012 TED HARDEN PHD 296.90 MOOD DISORDER 01/10/2012 TED HARDEN PHD 296.90 MOOD DISORDER 01/10/2012 TED HARDEN PHD 296.90 MOOD DISORDER 01/10/2012 KURT LUA APRN 296.90 MOOD DISORDER 01/10/2012 DERECK PHD, TED A 296.90 MOOD DISORDER 01/10/2012 BOEN[facility]LEOUT PHD, TED A 296.90 MOOD DISORDER 01/10/2012 [facility] PHD, TED A 296.90 MOOD DISORDER 01/10/2012 CHANELL CAMPA KURT CHARLTONH 296.90 MOOD DISORDER 01/10/2012 [facility] PHD, TED A 296.90 MOOD DISORDER 01/10/2012 CHANELL CAMPA KURT CHARLTONH 296.90 MOOD DISORDER 01/10/2012 BOEN[facility]LEOUT PHD, TED A 296.90 MOOD DISORDER 01/10/2012 BOEN[facility]LEOUT PHD, TED A 296.90 MOOD DISORDER 01/10/2012 [facility] PHD, TED A 296.90 MOOD DISORDER 01/10/2012 BOEN[facility]LEOUT PHD, TED A 296.90 MOOD DISORDER 01/10/2012 BOEN[facility]LEOUT PHD, TED A 296.90 MOOD DISORDER 01/10/2012 BOENICOLEOUT PHD, TED A 296.90 MOOD DISORDER 01/10/2012 BOEGREG PHD, TED A 296.90 MOOD DISORDER 01/10/2012 BOEKHOUT PHD, TED A 296.90 MOOD DISORDER 01/10/2012 BOEKHOUT PHD, TED A 296.90 MOOD DISORDER 01/10/2012 BOENICOLEOUT PHD, TED A 296.90 MOOD DISORDER 01/10/2012 BOENICOLEOUT PHD, TED A 296.90 MOOD DISORDER 01/10/2012 BOENICOLEOUT PHD, TED A 296.90 MOOD DISORDER 01/10/2012 BOEGREG PHD, TED A 296.90 MOOD DISORDER 01/10/2012 BOEGREG PHD, TED A 296.90 MOOD DISORDER 01/10/2012 BOEGREG PHD, TED A 296.90 MOOD DISORDER 01/10/2012 JONY SOLE SEAMER, KIM M 296.90 MOOD DISORDER 01/10/2012 JONY SOLE SEAMER, KIM M 296.90 MOOD DISORDER 01/10/2012 BRAULIO MOODY DDS 296.90 MOOD DISORDER 01/10/2012 JONY SOLE SEAMER, KIM M 296.90 MOOD DISORDER 01/10/2012 DERECK PHD, TED A 296.90 MOOD DISORDER 01/10/2012 JONY SOLE SEAMER, KIM M 296.90 MOOD DISORDER 11/28/2013 CHANELL CAMPA KURT [place]TON 296.80 MO BIPOLAR NOS 11/28/2013 BOENICOLEOUT PHD, TED A 296.80 MO BIPOLAR NOS 11/28/2013 CHANELL CAMPA KURT ROSE 296.80 MO BIPOLAR NOS 11/28/2013 BOENICOLEOUT PHD, TED A 296.80 MO BIPOLAR NOS 11/28/2013 BOENICOLEOUT PHD, TED A 296.80 MO BIPOLAR NOS 11/28/2013 BOENICOLEOUT PHD, TED A 296.80 MO BIPOLAR NOS 11/28/[address] [facility], TED A 296.80 MO BIPOLAR NOS 11/28/2013 BOENICOLEOUT PHD, TED A 296.80 MO BIPOLAR NOS 11/28/2013 [facility], TED A 296.80 MO BIPOLAR NOS 11/28/2013 BOEGREG PHD, TED A 296.80 MO BIPOLAR NOS 11/28/2013 BOEGREG PHD, TED A 296.80 MO BIPOLAR NOS 11/28/2013 BOEGREG PHD, TED A 296.80 MO BIPOLAR NOS 11/28/2013 BOEGREG PHD, TED A 296.80 MO BIPOLAR NOS 11/28/2013 BOEGREG PHD, TED A 296.80 MO BIPOLAR NOS 11/28/2013 BOEGREG PHD, TED A 296.80 MO BIPOLAR NOS 11/28/2013 BOEGREG PHD, TED A 296.80 MO BIPOLAR NOS 11/28/2013 BOEGREG PHD, TED A 296.80 MO BIPOLAR NOS 11/28/2013 BOEGREG PHD, TED A 296.80 MO BIPOLAR NOS 11/28/2013 JONY SOLE SEAMER, KIM M 296.80 MO BIPOLAR NOS 11/28/2013 JONY SOLE SEAMER, KIM M 296.80 MO BIPOLAR NOS 11/28/2013 BRAULIO MOODY DDS 296.80 MO BIPOLAR NOS 11/28/2013 JONY SOLE SEAMER, KIM M 296.80 MO BIPOLAR NOS 11/28/2013 BOEGREG PHD, TED A 296.80 MO BIPOLAR NOS 11/28/2013 JONY SOLE SEAMER, KIM M 296.80 MO BIPOLAR NOS 04/01/2014 BOEGREG PHD, TED A 296.32 MO DEPRESSIVE RECURRENT MODERATE 04/01/2014 BOEGREG PHD, TED A 296.32 MO DEPRESSIVE RECURRENT MODERATE 04/01/2014 BOEGREG PHD, TED A 296.32 MO DEPRESSIVE RECURRENT MODERATE 04/01/2014 TED HARDEN PHD 296.32 MO DEPRESSIVE RECURRENT MODERATE 04/01/2014 DERECK FUNEZ, TED A 296.32 MO DEPRESSIVE RECURRENT MODERATE 04/01/2014 DERECK FUNEZ, TED A 296.32 MO DEPRESSIVE RECURRENT MODERATE 04/01/2014 DERECK PHD, TED A 296.32 MO DEPRESSIVE RECURRENT MODERATE 04/01/2014 DERECK FUNEZ, TED A 296.32 MO DEPRESSIVE RECURRENT MODERATE 04/01/2014 DERECK FUNEZ, TED A 296.32 MO DEPRESSIVE RECURRENT MODERATE 04/01/2014 DERECK PHD, TED A 296.32 MO DEPRESSIVE RECURRENT MODERATE 04/01/2014 JONY NICANOR KIM M 296.32 MO DEPRESSIVE RECURRENT MODERATE 04/01/2014 JONY NICANOR KIM M 296.32 MO DEPRESSIVE RECURRENT MODERATE 04/01/2014 BRAULIO MOODY DDS 296.32 MO DEPRESSIVE RECURRENT MODERATE 04/01/2014 JONY NICANOR KIM M 296.32 MO DEPRESSIVE RECURRENT MODERATE 04/01/2014 TED HARDEN PHD A 296.32 MO DEPRESSIVE RECURRENT MODERATE 04/01/2014 JONY NICANOR KIM M 296.32 MO DEPRESSIVE RECURRENT MODERATE 08/26/2014 TED HARDEN PHD 309.4 AD ADJ D/O W DIST OF EMOT 08/26/2014 TED HARDEN PHD 309.4 AD ADJ D/O W DIST OF EMOT 08/26/2014 JONY SOLE SEAMER KIM M 309.4 AD ADJ D/O W DIST OF EMOT 08/26/2014 KIM SIMONS M 309.4 AD ADJ D/O W DIST OF EMOT 08/26/2014 BRAULIO MOODY DDS 309.4 AD ADJ D/O W DIST OF EMOT 08/26/2014 JONY SOLE SEAMERKIM M 309.4 AD ADJ D/O W DIST OF EMOT 08/26/2014 TED HARDEN PHD 309.4 AD ADJ D/O W DIST OF EMOT 08/26/2014 KIM SIMONS M 309.4 AD ADJ D/O W DIST OF EMOT 08/28/2014 WANG CAO, CHUY Ot 455.0 08/28/2014 CHUY PIÑA MD Ot 530.11 08/28/2014 CHUY PIÑA MD Ot 535.50 08/28/2014 WANG CAO, CHUY Ot 553.3 08/28/2014 WANG CAO, CHUY Ot 569.3 08/28/2014 WANG CAO, CHUY Ot V12.72 11/13/2014 KIM SIMONS M 296.22 MO DEPRESSIVE SINGLE MODERATE 11/13/2014 JONY SOLE SEAMER, KIM M 300.00 AN ANXIETY UNSPEC 11/13/2014 HEIDY DDS, BRAULIO D 296.22 MO DEPRESSIVE SINGLE MODERATE 11/13/2014 HEIDY DDS, BRAULIO D 300.00 AN ANXIETY UNSPEC 11/13/2014 JONY VICK, KIM M 296.22 MO DEPRESSIVE SINGLE MODERATE 11/13/2014 JONY VICK, KIM M 300.00 AN ANXIETY UNSPEC 11/13/2014 DERECK PHD, TED A 296.22 MO DEPRESSIVE SINGLE MODERATE 11/13/2014 DERECK PHD, TED A 300.00 AN ANXIETY UNSPEC 11/13/2014 JONY VICK, KIM M 296.22 MO DEPRESSIVE SINGLE MODERATE 11/13/2014 KIM SIMONS M 300.00 AN ANXIETY UNSPEC 11/22/2017 FABIEN ANGUIANO V70.0 ROUTINE GENERAL MEDICAL EXAMINATION AT A HEALTH CARE FACILITY 11/22/2017 FABIEN ANGUIANO Z00.00 ENCOUNTER FOR GENERAL ADULT MEDICAL EXAMINATION WITHOUT ABNORMAL FINDINGS 11/22/2017 FABIEN ANGUIANO 272.4 OTHER AND UNSPECIFIED HYPERLIPIDEMIA 11/22/2017 FABIEN ANGUIANO E78.5 HYPERLIPIDEMIA, UNSPECIFIED 11/22/2017 FABIEN ANGUIANO V58.69 LONG-TERM (CURRENT) USE OF OTHER MEDICATIONS 11/22/2017 FABIEN ANGUIANO V70.0 ROUTINE GENERAL MEDICAL EXAMINATION AT A HEALTH CARE FACILITY 11/22/2017 FABIEN ANGUIANO Z00.00 ENCOUNTER FOR GENERAL ADULT MEDICAL EXAMINATION WITHOUT ABNORMAL FINDINGS 11/22/2017 FABIEN ANGUIANO Z79.899 OTHER INTERMEDIATE (CURRENT) DRUG THERAPY 11/22/2017 FABIEN ANGUIANO 272.4 OTHER AND UNSPECIFIED HYPERLIPIDEMIA 11/22/2017 FABIEN ANGUIANO E78.5 HYPERLIPIDEMIA, UNSPECIFIED 11/22/2017 FABIEN ANGUIAON V58.69 LONG-TERM (CURRENT) USE OF OTHER MEDICATIONS 11/22/2017 FABIEN ANGUIANO V70.0 ROUTINE GENERAL MEDICAL EXAMINATION AT A HEALTH CARE FACILITY 11/22/2017 FABIEN ANGUIANO Z00.00 ENCOUNTER FOR GENERAL ADULT MEDICAL EXAMINATION WITHOUT ABNORMAL FINDINGS 11/22/2017 FABIEN ANGUIANO Z79.899 OTHER SPECIAL EVENTS PLANNER (CURRENT) DRUG THERAPY 11/22/2017 VINNY ANGUIANOKARTHIKEYAN Galvan 272.4 OTHER AND UNSPECIFIED HYPERLIPIDEMIA 11/22/2017 FABIEN ANGUIANO Mandy E78.5 HYPERLIPIDEMIA, UNSPECIFIED 11/22/2017 VINNY ANGUIANOHEL Mandy V58.69 LONG-TERM (CURRENT) USE OF OTHER MEDICATIONS 11/22/2017 FABIEN ANGUIANO V70.0 ROUTINE GENERAL MEDICAL EXAMINATION AT A HEALTH CARE FACILITY 11/22/2017 FABIEN ANGUIANO Z00.00 ENCOUNTER FOR GENERAL ADULT MEDICAL EXAMINATION WITHOUT ABNORMAL FINDINGS 11/22/2017 FABIEN ANGUIANO Mandy Z79.899 OTHER INTERMEDIATE (CURRENT) DRUG THERAPY Procedures Code [place] [address] INDIV PSYTX 45/50 MIN 08/25/2012 36154 PSYCH PHARM MGMT 08/30/2012 54482 PSYTX PT&/FAMILY 45 MINUTES 10/06/2012 26625 PSYTX PT&/FAMILY 45 MINUTES 11/09/2012 45567 ROUTINE VENIPUNCTURE 11/15/2012 91593 UA W/ CULTURE IF INDICATED 11/15/2012 25545 CBC 11/15/2012 31070 LIVER PANEL (LFT) 11/15/2012 2911842 GFR CALC (RESULT ONLY) 11/15/2012 86866 LITHIUM 11/15/2012 87884 RENAL PROFILE 11/15/2012 79038 TSH 11/15/2012 68477 PSYTX PT&/FAMILY 45 MINUTES 11/27/2012 30780 PSYTX PT&/FAMILY 45 MINUTES 12/21/2012 63027 PSYTX PT&/FAMILY 45 MINUTES 01/03/2013 56516 PSYTX PT&/FAMILY 45 MINUTES 01/23/2013 17064 PSYCHO TESTING 1 HR W COMP 02/01/2013 36349 PSYTX PT&/FAMILY 45 MINUTES 02/20/2013 83207 PSYTX PT&/FAMILY 45 MINUTES 03/09/2013 64044 PSYTX PT&/FAMILY 45 MINUTES 05/07/2013 14665 PSYTX PT&/FAMILY 45 MINUTES 05/16/2013 41876 PSYTX PT&/FAMILY 45 MINUTES 05/30/2013 07313 PSYTX PT&/FAMILY 45 MINUTES 06/15/2013 63419 PSYTX PT&/FAMILY 45 MINUTES 07/23/2013 96617 PSYTX PT&/FAMILY 45 MINUTES 08/06/2013 30587 PSYTX PT&/FAMILY 45 MINUTES 08/20/2013 37076 PSYTX PT&/FAMILY 45 MINUTES 09/07/2013 47791 PSYTX PT&/FAMILY 45 MINUTES 09/25/2013 92293 PSYTX PT&/FAMILY 45 MINUTES 10/17/2013 77892 PSYTX PT&/FAMILY 45 MINUTES 11/28/2013 18234 PSYTX PT&/FAMILY 45 MINUTES 12/20/2013 84811 PSYTX PT&/FAMILY 45 MINUTES 01/03/2014 10151 PSYTX PT&/FAMILY 45 MINUTES 01/25/2014 37175 PSYTX PT&/FAMILY 45 MINUTES 02/13/2014 36874 PSYTX PT&/FAMILY 45 MINUTES 03/08/2014 03477 PSYTX PT&/FAMILY 45 MINUTES 03/27/2014 15642 PSYTX PT&/FAMILY 45 MINUTES 04/17/2014 77959 PSYTX PT&/FAMILY 45 MINUTES 05/07/2014 16545 PSYTX PT&/FAMILY 45 MINUTES 05/22/2014 36317 PSYTX PT&/FAMILY 45 MINUTES 06/06/2014 72853 PSYTX PT&/FAMILY 45 MINUTES 06/24/2014 28384 PSYTX PT&/FAMILY 45 MINUTES 07/04/2014 49927 PSYTX PT&/FAMILY 45 MINUTES 07/18/2014 90507 PSYTX PT&/FAMILY 45 MINUTES 08/01/2014 37013 PSYTX PT&/FAMILY 45 MINUTES 09/02/2014 34909 PSYTX PT&/FAMILY 45 MINUTES 09/24/2014 07254 PSYTX PT&/FAMILY 45 MINUTES 12/23/2014 26977 PSYTX PT&/FAMILY 45 MINUTES 01/02/2015 96314 PSYTX PT&/FAMILY 45 MINUTES 01/16/2015 Results Test Result Range Comprehensive Metabolic Panel - 11/16/16 15:45 Albumin 5.0 g/dL 3.6-5.1 ALP 74 U/L 35-130 ALT 25 U/L 6-45 Anion Gap 17 6-14 AST 18 U/L 2-40 BUN 10 mg/dL 5-25 Calcium 10.4 mg/dL 8.3-10.4 Chloride 106 mmol/L 95-114 CO2 27 mEq/L 22-33 Creat 1.27 mg/dL 0.50-1.50 eGFR 66 mL/min/1.73m2 >59 Globulin 3.1 g/dL 2.3-3.5 Glucose 90 mg/dL 70-110 Osmo 298 280-295 Potassium 4.6 mmol/L 3.5-5.3 Sodium 145 mmol/L 134-148 TBil 0.5 mg/dL 0.2-1.2 TP 8.1 g/dL 6.0-8.3 Lipid Panel - 11/22/17 13:36 C/HDL 5.0 3.7-6.7 Cholesterol 194 mg/dL 100-240 HDL 39 mg/dL 30-85 LDL-Calculated 123 mg/dL 0-100 Trig 161 mg/dL 35-160 VLDL 32 mg/dL 0-42 Encounters ACCT No. Visit Date/Time Discharge Status Pt. Type Provider Facility Loc./Unit Complaint [id number] 01/02/2015 09:58:00 01/02/2015 23:59:59 [facility] Outpatient TED HARDEN PHD [id number] 12/25/2014 09:42:00 12/25/2014 23:59:59 CLS Outpatient KIM SIMONS [id number] 12/25/2014 09:42:00 12/25/2014 23:59:59 CLS Outpatient KIM SIMONS [id number] 12/20/2014 13:18:00 12/20/2014 23:59:59 CLS Outpatient BRAULIO MOODY DDS [id number] 11/13/2014 09:20:00 11/13/2014 23:59:59 CLS Outpatient KIM SIMONS [id number] 09/24/2014 09:55:00 09/24/2014 23:59:59 CLS Outpatient TED HARDEN PHD [id number] 09/02/2014 13:03:00 09/02/2014 23:59:59 CLS Outpatient TED HARDEN PHD [id number] 08/26/2014 11:01:00 08/26/2014 23:59:59 CLS Outpatient KIM SIMONS [id number] 08/26/2014 11:01:00 08/26/2014 23:59:59 CLS Outpatient KIM SIMONS [id number] 08/01/2014 09:57:00 08/01/2014 23:59:59 CLS Outpatient TED HARDEN PHD [id number] 07/18/2014 09:55:00 07/18/2014 23:59:59 CLS Outpatient TED HARDEN PHD [id number] 07/04/2014 09:56:00 07/04/2014 23:59:59 CLS Outpatient TED HARDEN PHD [id number] 06/20/2014 09:59:00 06/20/2014 23:59:59 CLS Outpatient TED HARDEN PHD [id number] 06/06/2014 09:48:00 06/06/2014 23:59:59 CLS Outpatient SALINAOUT TED FUNEZ [id number] 05/22/2014 10:02:00 05/22/2014 23:59:59 CLS Outpatient BOENICOLEOUT TED FUNEZ [id number] 05/07/2014 09:57:00 05/07/2014 23:59:59 CLS Outpatient TED HARDEN PHD [id number] 04/16/2014 10:51:00 04/16/2014 23:59:59 CLS Outpatient TED HARDEN PHD [id number] 03/27/2014 09:57:00 03/27/2014 23:59:59 CLS Outpatient TED HARDEN PHD [id number] 03/07/2014 09:54:00 03/07/2014 23:59:59 CLS Outpatient TED HARDEN PHD [id number] 02/13/2014 09:03:00 02/13/2014 23:59:59 CLS Outpatient TED HARDEN PHD [id number] 01/24/2014 08:53:00 01/24/2014 23:59:59 CLS Outpatient TED HARDEN PHD [id number] 01/03/2014 09:00:00 01/03/2014 23:59:59 CLS Outpatient TED HARDEN PHD [id number] 12/27/2013 11:56:00 12/27/2013 23:59:59 CLS Outpatient LUA ASSEMBLY MECHANICKURT [id number] 12/20/2013 08:59:00 12/20/2013 23:59:59 CLS Outpatient TED HARDEN PHD [id number] 11/28/2013 11:55:00 11/28/2013 23:59:59 CLS Outpatient LUA ASSEMBLY MECHANIC, KURT ROSE [id number] 11/27/2013 13:01:00 11/27/2013 23:59:59 CLS Outpatient TED HARDEN PHD [id number] 10/16/2013 13:01:00 10/16/2013 23:59:59 CLS Outpatient SALINAOUT TED FUNEZ [id number] 09/25/2013 10:39:00 09/25/2013 23:59:59 CLS Outpatient TED HARDEN PHD [id number] 09/11/2013 10:58:00 09/11/2013 23:59:59 CLS Outpatient LUA ASSEMBLY MECHANIC, KURT ROSE [id number] 09/06/2013 11:00:00 09/06/2013 23:59:59 CLS Outpatient SALINAOUT TED FUNEZ [id number] 08/16/2013 09:53:00 08/16/2013 23:59:59 CLS Outpatient TED HARDEN PHD [id number] 08/02/2013 10:01:00 08/02/2013 23:59:59 CLS Outpatient TED HARDEN PHD [id number] 07/19/2013 11:08:00 07/19/2013 23:59:59 CLS Outpatient TED HARDEN PHD [id number] 06/18/2013 11:47:00 06/18/2013 23:59:59 CLS Outpatient GIN BRODERICK DO [id number] 06/14/2013 09:57:00 06/14/2013 23:59:59 CLS Outpatient TED HARDEN PHD [id number] 01/02/2013 11:02:00 01/02/2013 23:59:59 CLS Outpatient BOENICOLEOUT TED FUNEZ [id number] 12/22/2012 14:53:00 12/22/2012 23:59:59 CLS Outpatient GIN BRODERICK DO [id number] 12/19/2012 09:55:00 12/19/2012 23:59:59 CLS Outpatient [id number] 11/23/2012 09:55:00 11/23/2012 23:59:59 CLS Outpatient [id number] 11/15/2012 12:17:00 11/15/2012 23:59:59 CLS Outpatient GIN BRODERICK DO [id number] 11/08/2012 10:57:00 11/08/2012 23:59:59 CLS Outpatient [id number] 10/24/2012 12:30:00 10/24/2012 23:59:59 CLS Outpatient GIN BRODERICK DO [id number] 10/16/2012 10:52:00 10/16/2012 23:59:59 CLS Outpatient [id number] 10/04/2012 10:52:00 10/04/2012 23:59:59 CLS Outpatient [id number] 08/24/2012 10:47:00 08/24/2012 23:59:59 CLS Outpatient [id number] 07/13/2012 14:30:00 07/13/2012 23:59:59 CLS Outpatient GIN BRODERICK DO [id number] 05/29/2013 09:50:00 Document Registration [id number] 05/15/2013 09:00:00 Document Registration [id number] 05/04/2013 09:01:00 Document Registration [id number] 03/08/2013 09:58:00 Document Registration [id number] 02/15/2013 10:56:00 Document Registration [id number] 01/31/2013 10:56:00 Document Registration [id number] 01/25/2013 11:25:00 Document Registration [id number] 01/18/2013 10:03:00 Document Registration [id number] 10/25/2017 14:20:00 10/25/2017 23:59:59 CLS Outpatient [id number] 08/28/2014 08:39:15 ACT Document Registration [id number] 11/17/2016 14:55:00 Document Registration [id number] 11/22/2017 20:10:00 11/22/2017 23:59:00 DIS Outpatient FABIEN ANGUIANO [id number] 02/16/2017 12:57:00 02/16/2017 23:59:00 DIS Outpatient FABIEN ANGUIANO [id number] 11/17/2016 14:55:00 11/17/2016 14:55:00 CAN Outpatient FABIEN ANGUIANO [id number] 11/16/2016 15:45:00 11/16/2016 23:59:00 DIS Outpatient FABIEN ANGUIANO [id number] 08/28/2014 08:38:00 08/28/2014 12:10:00 DIS Outpatient CHUY PIÑA MD [facility] [id number] 08/21/2014 06:09:00 08/21/2014 23:59:59 CLS Outpatient CHUY PIÑA MD [facility] [id number] 02/24/2014 21:05:00 02/24/2014 23:23:00 DIS Emergency [id number] 06/27/2013 10:19:00 06/27/2013 23:59:59 CLS Outpatient
--- NOTE | 2018-09-01 19:42 | Diagnostic Imaging Report ---
Examination: Chest, PA and lateral views Indication: Chest pain and shortness of breath. Comparison: None. Findings: The lungs are clear and the pulmonary vasculature is normal. No pneumothorax or pleural effusion. The cardiomediastinal silhouette is normal. No acute osseous abnormality. Impression: No acute chest disease. Dictated by: Dictated on workstation # [id number]
[2018-09-01 20:14] LABS: BASOPHILS % (AUTO) 0 % (0-10); EOSINOPHILS % (AUTO) 0 % (0-10); HEMATOCRIT 44 % (40-54); HEMOGLOBIN 15.7 G/DL (13.3-17.7); LYMPHOCYTES # (AUTO) 1.6 X 10^3 (1.0-4.0); LYMPHOCYTES % (AUTO) 17 % (12-44); MEAN CORPUSCULAR HEMOGLOBIN 31 PG (25-34); MEAN CORPUSCULAR HGB CONC 36 G/DL (32-36); MEAN CORPUSCULAR VOLUME 86 FL (80-99); MEAN PLATELET VOLUME 9.2 FL (7.4-10.4); MONOCYTES # (AUTO) 0.8 X 10^3 (0.0-1.0); MONOCYTES % (AUTO) 8 % (0-12); NEUTROPHILS % (AUTO) 74 % (42-75); PLATELET COUNT 261 10^3/uL (130-400); RED BLOOD COUNT 5.07 10^6/uL (4.35-5.85); RED CELL DISTRIBUTION WIDTH 12.4 % (10.0-14.5); WHITE BLOOD COUNT 9.4 10^3/uL (4.3-11.0)
[2018-09-01 20:33] LABS: ALANINE AMINOTRANSFERASE 77 U/L (0-55); ALBUMIN 4.9 GM/DL (3.2-4.5); ALKALINE PHOSPHATASE 65 U/L (40-136); BILIRUBIN,TOTAL 0.8 MG/DL (0.1-1.0); BUN/CREATININE RATIO 10; CARBON DIOXIDE 26 MMOL/L (21-32); CHLORIDE 103 MMOL/L (98-107); CREATININE SERUM 1.13 MG/DL (0.60-1.30); GFR ESTIMATED > 60; GLUCOSE 87 MG/DL (70-105); MAGNESIUM 2.3 MG/DL (1.8-2.4); POTASSIUM 3.6 MMOL/L (3.6-5.0); SODIUM 141 MMOL/L (135-145)
--- NOTE | 2018-09-01 20:37 | ED Chest Pain ---
General Chief Complaint: Chest Pain Stated Complaint: CHEST PAIN Nursing Triage Note: Pt c/o bilat chest pain for several weeks. Nursing Sepsis Screen: No Definite Risk Source: patient Exam Limitations: no limitations History of Present Illness Date Seen by Provider: Sep 01, 2018 Time Seen by Provider: 18:50 Initial Comments This 33-year-old gentleman is a client of [facility] and presents to the emergency room accompanied by his parents with complaints of migratory intermittent chest pain for about one month. The pain is sharp in nature and bilateral. He sometimes has pain with inspiration. He uses an inhaler at home for her asthma. He reports coughing up some blood with a deep cough yesterday. He has been taking Tums for the discomfort thinking it may be related to acid reflux. He rates pain as 5.5/10. He sometimes feels lightheaded when he gets up. He has had some constipation recently. Patient reported having a heart rate of around 100 at home. Vital signs here are normal other than mild hypertension. Allergies and Home Medications Allergies Coded Allergies: hydrocodone (Verified Allergy, Intermediate, RASH, 02/24/14) Sulfisoxazole Acetyl (Verified Allergy, Unknown, 02/24/14) erythromycin ethylsuccinate (Verified Allergy, Unknown, 02/24/14) Sulfa (Sulfonamide Antibiotics) (Verified Adverse Reaction, Mild, 07/18/11 ) Home Medications Benzonatate 100 Mg Capsule, 100 MG PO Q4H, (Reported) Budesonide/Formoterol Fumarate 10.2 Gm Hfa.aer.ad, 2 PUFF IH BID, (Reported) Cetirizine Hcl 10 Mg Capsule, 10 MG PO DAILY, (Reported) Cholestyramine/Sucrose 378 Gm Powder, 378 GM PO PRN, (Reported) Clonazepam 1 Mg Tablet, 1 EACH PO BID, (Reported) Cranberry Fruit 450 Mg Tablet, 450 MG PO HS, (Reported) Divalproex Sodium 500 Mg Tablet.dr, 500 MG PO BID, (Reported) Epinephrine 0.3 Mg/0.3/Syringe Pen.injctr, 0.3 MG IM ONCE Prescribed by: STEFANY COLBERT on 07/26/12 1657 Erythromycin 500 Mg Tablet, 1 EACH PO DAILY, (Reported) Melatonin/Pyridoxine Hcl (B6) 1 Each Tab.mphase, 1 EACH PO HS, (Reported) Mometasone Furoate 17 Gm [place], 1 SPRAY NS UD, (Reported) Montelukast Sodium 10 Mg Tablet, 1 TAB PO DAILY, (Reported) Multivitamin 1 Each Tablet, 1 EACH PO DAILY, (Reported) Multivits,Therap W-Fe,Hematin 1 Each Tablet, 1 EACH PO BID, (Reported) Pantoprazole Sodium 20 Mg Tablet.dr, 40 MG PO DAILY Prescribed by: CHUY PIÑA on 08/28/14 1106 Sertraline Hcl 100 Mg Tab, 100 MG PO DAILY, (Reported) Sumatriptan Succinate 50 Mg Tab, 25 MG PO UD, (Reported) Tramadol Hcl 50 Mg Tablet, 50 MG PO PRN, (Reported) Tramadol Hcl 50 Mg Tablet, 50 MG PO Q4H PRN for PAIN Prescribed by: SHANTELLE PEREIRA on 02/24/14 2325 Tretinoin 15 Gm Gel, 15 GM TP DAILY, (Reported) Patient Home Medication List Home Medication List Reviewed: Yes Review of Systems Review of Systems Constitutional: no symptoms reported EENTM: No Symptoms Reported Respiratory: See HPI Cardiovascular: See HPI Gastrointestinal: See HPI Genitourinary: No Symptoms Reported Musculoskeletal: no symptoms reported Skin: no symptoms reported Psychiatric/Neurological: No Symptoms Reported Endocrine: No Symptoms Reported Hematologic/Lymphatic: No Symptoms Reported Past Jcbutlt-Tpewbk-Roxnws Hx Patient Social History Alcohol Use: Denies Use Recreational Drug Use: No Smoking Status: Former Smoker Recent Foreign Travel: No Contact w/Someone Who Travel: No Recent Infectious Disease Expo: No Recent Hopitalizations: No Immunizations Up To Date Date of Influenza Vaccine: Jun 28, 2014 Seasonal Allergies Seasonal Allergies: No Past Medical History Surgeries: Yes Respiratory: Yes Asthma Cardiac: No Neurological: No Reproductive Disorders: No Gastrointestinal: Yes Gastroesophageal Reflux Musculoskeletal: No Endocrine: No Cancer: No Psychosocial: Yes (MR) Depression Integumentary: No Blood Disorders: No Physical Exam Vital Signs Vital Signs - First Documented 09/01/18 19:22 Temp 98.6 Pulse 86 Resp 18 B/P (MAP) 145/89 (107) Pulse Ox 16 O2 Delivery Room Air Capillary Refill : Less Than 3 Seconds Height, Weight, BMI Height: 6'6.00" Weight: 260lbs. oz. 117.093675vh; BMI Method:Stated General Appearance: No Apparent Distress, WD/WN HEENT: PERRL/EOMI, TMs Normal, Normal ENT Inspection, Pharynx Normal Neck: Normal Inspection Respiratory: Chest Non Tender, Lungs Clear, Normal Breath Sounds, No Accessory Muscle Use, No Respiratory Distress Cardiovascular: Regular Rate, Rhythm, No Edema, No Murmur Gastrointestinal: Normal Bowel Sounds, Non Tender, Soft Extremity: Normal Inspection, No Calf Tenderness, No Pedal Edema, Other ( negative Liban) Neurologic/Psychiatric: Alert, Oriented x3, No Motor/Sensory Deficits, Normal Mood/Affect, revenue accounting manager II-XII Norm as Tested Skin: Normal Color, Warm/Dry Progress/Results/Core Measures Results/Orders Lab Results Laboratory Tests Test 09/01/18 20:05 Range/Units White Blood Count 9.4 4.3-11.0 10^3/uL Red Blood Count 5.07 4.35-5.85 10^6/uL Hemoglobin 15.7 13.3-17.7 G/DL Hematocrit 44 40-54 % Mean Corpuscular Volume 86 80-99 FL Mean Corpuscular Hemoglobin 31 25-34 PG Mean Corpuscular Hemoglobin Concent 36 32-36 G/DL Red Cell Distribution Width 12.4 10.0-14.5 % Platelet Count 261 130-400 10^3/uL Mean Platelet Volume 9.2 7.4-10.4 FL Neutrophils (%) (Auto) 74 42-75 % Lymphocytes (%) (Auto) 17 12-44 % Monocytes (%) (Auto) 8 0-12 % Eosinophils (%) (Auto) 0 0-10 % Basophils (%) (Auto) 0 0-10 % Neutrophils # (Auto) 7.0 1.8-7.8 X 10^3 Lymphocytes # (Auto) 1.6 1.0-4.0 X 10^3 Monocytes # (Auto) 0.8 0.0-1.0 X 10^3 Eosinophils # (Auto) 0.0 0.0-0.3 10^3/uL Basophils # (Auto) 0.0 0.0-0.1 10^3/uL D-Dimer < 0.27 0.00-0.49 UG/ML Sodium Level 141 135-145 MMOL/L Potassium Level 3.6 3.6-5.0 MMOL/L Chloride Level 103 98-107 MMOL/L Carbon Dioxide Level 26 21-32 MMOL/L Anion Gap 12 5-14 MMOL/L Blood Urea Nitrogen 11 7-18 MG/DL Creatinine 1.13 0.60-1.30 MG/DL Estimat Glomerular Filtration Rate > 60 BUN/Creatinine Ratio 10 Glucose Level 87 70-105 MG/DL Calcium Level 10.0 8.5-10.1 MG/DL Corrected Calcium 8.5-10.1 MG/DL Magnesium Level 2.3 1.8-2.4 MG/DL Total Bilirubin 0.8 0.1-1.0 MG/DL Aspartate Amino Transf (AST/SGOT) 30 5-34 U/L Alanine Aminotransferase (ALT/SGPT) 77 H 0-55 U/L Alkaline Phosphatase 65 40-136 U/L Troponin I < 0.30 <0.30 NG/ML C-Reactive Protein High Sensitivity 0.14 0.00-0.50 MG/DL Total Protein 8.0 6.4-8.2 GM/DL Albumin 4.9 H 3.2-4.5 GM/DL My Orders Orders - CHERYL ROSEN MD Cbc With Automated Diff (09/01/18 18:59) Comprehensive Metabolic Panel (09/01/18 18:59) Troponin I (09/01/18 18:59) Saline Lock/Iv-Start (09/01/18 18:59) Ekg Tracing (09/01/18 18:59) Monitor-Rhythm Ecg Trace Only (09/01/18 18:59) Chest Pa/Lat (2 View) (09/01/18 18:59) Hs C Reactive Protein (09/01/18 19:03) Fibrin Degradation Products (09/01/18 19:03) Magnesium (09/01/18 19:03) Vital Signs/I&O 09/01/18 19:22 Temp 98.6 Pulse 86 Resp 18 B/P (MAP) 145/89 (107) Pulse Ox 16 O2 Delivery Room Air Blood Pressure Mean: 107 Progress Progress Note : Progress Note Workup was unremarkable. Negative findings explained to patient and parents. Further evaluation is being deferred to the primary care provider. Initial ECG Impression Date: Sep 01, 2018 Initial ECG Impression Time: 18:30 Initial ECG Rate: 87 Initial ECG Rhythm: Normal Sinus Initial ECG Intervals: Normal Initial ECG Impression: Normal Comment Normal sinus rhythm with no ST elevation or depression. No abnormal intervals or axis deviation. Diagnostic Imaging Diagonstic Imaging: Xray Plain Films/CT/US/NM/MRI: chest Comments Chest x-ray viewed by me and report reviewed. See report below: NAME: NENA RESTREPO MED REC#: [id number] PT STATUS: REG ER : 1985 PHYSICIAN: CHERYL ROSEN MD ADMIT DATE: 09/01/18/ER Draft Date of Exam:09/01/18 CHEST PA/LAT (2 VIEW) Examination: Chest, PA and lateral views Indication: Chest pain and shortness of breath. Comparison: None. Findings: The lungs are clear and the pulmonary vasculature is normal. No pneumothorax or pleural effusion. The cardiomediastinal silhouette is normal. No acute osseous abnormality. Impression: No acute chest disease. Dictated on workstation # [id number] Dict: 09/01/181937 Trans: 09/01/181941 ON LICENSE OF [facility] [id number] Interpreted by: BEATRIZ OCHOA DO Departure Impression Primary Impression: Atypical chest pain Additional Impression: Shortness of breath Disposition: 01 HOME, SELF-CARE Condition: Improved Departure-Patient Inst. Decision time for Depature: 20:56 Referrals: FABIEN ROSALES MD (PCP/Family) Primary Care Physician Patient Instructions: Chest Pain That Is Not Caused by the Heart (DC) Add. Discharge Instructions: Follow-up with Dr. Rosales as soon as possible. Return to care if symptoms are worsening. For pain take ibuprofen up to 600 mg every 6 hours and/or Tylenol (acetaminophen ) up to 1000 mg every 6 hours as needed. Take ibuprofen with food or milk to avoid irritating your stomach. Use your inhaler as prescribed for shortness of breath. All discharge instructions reviewed with patient and/or family. Voiced understanding. Copy Copies To 1: FABIEN ROSALES MD, JOSHUA T MD Sep 01, 2018 20:37
[2018-09-01 21:13] VITALS: BP 117/95
== END 2018-09-01 21:13 | disposition home or self-care (01) ==
LOC: EDUNIT# 18:28 → ER 18:30
DX: R07.89 Other chest pain (principal); J45.909 Unspecified asthma, uncomplicated; I10 Essential (primary) hypertension; K21.9 Gastro-esophageal reflux disease without esophagitis; F32.9 Major depressive disorder, single episode, unspecified; Z79.51 Long term (current) use of inhaled steroids; Z88.5 Allergy status to narcotic agent; Z87.891 Personal history of nicotine dependence; Z88.2 Allergy status to sulfonamides; Z88.0 Allergy status to penicillin
CPT/HCPCS: 36415; 71046; 80053; 83735; 84484; 85025; 85379; 86141; 93005; 93041

== ENCOUNTER 2018-12-11 18:30 | Emergency (ER) | payer MEDICARE, MEDICAID ==
[~2018-12-11] VITALS: Ht 195.6 cm; Wt 115.7 kg
[2018-12-11] MEDS ORDERED: ANTACID SUSP 30 ML UDC (MYLANTA) PO ONE (18:45)
[2018-12-11] MEDS ORDERED: LIDOCAINE 2% VISCOUS 15 ML UDC PO ONE (18:45)
--- NOTE | 2018-12-11 18:46 | ED Chest Pain ---
General Chief Complaint: Chest Pain Stated Complaint: CP Source: patient, EMS History of Present Illness Date Seen by Provider: Dec 11, 2018 Time Seen by Provider: 18:31 Initial Comments PT ARRIVES VIA EMS FROM DAD'S HOUSE--PT IS RESIDENT OF [place] WAS EATING SUPPER AND BEGAN HAVING "CHEST PAIN" --POINTS TO EPIGASTRIC AREA WAS HAVING STROGANOFF AND HOT/SPICY SANDWICH PAIN BEGAN AROUND 1830 AND IS GONE NOW STATES IT WOULD COME AND GO STATES "IT HIT ME SO HARD I FELL DOWN" DID HAVE SWEATS AND BOTH HANDS FELT TINGLY WITH IT BELCHED ALOT AFTER ELAM NO SHORTNESS OF BREATH NO SWELLING IN LEGS/ FEET OR PAIN IN CALVES NO COUGH, FEVER OR RECENT ILLNESS HAS HAD THIS ONCE BEFORE IN SEPTEMBER, AND WORK UP WAS NEGATIVE FOR CARDIAC HAS HISTORY OF GERD, BUT HAS NOT HAD EGD. PCP: DR. Tae ANGUIANO Allergies and Home Medications Allergies Coded Allergies: hydrocodone (Verified Allergy, Intermediate, RASH, 02/24/14) Sulfisoxazole Acetyl (Verified Allergy, Unknown, 02/24/14) erythromycin ethylsuccinate (Verified Allergy, Unknown, 02/24/14) Sulfa (Sulfonamide Antibiotics) (Verified Adverse Reaction, Mild, 07/18/11 ) Home Medications Benzonatate 100 Mg Capsule, 100 MG PO Q4H, (Reported) Budesonide/Formoterol Fumarate 10.2 Gm Hfa.aer.ad, 2 PUFF IH BID, (Reported) Cetirizine Hcl 10 Mg Capsule, 10 MG PO DAILY, (Reported) Cholestyramine/Sucrose 378 Gm Powder, 378 GM PO PRN, (Reported) Clonazepam 1 Mg Tablet, 1 EACH PO BID, (Reported) Cranberry Fruit 450 Mg Tablet, 450 MG PO HS, (Reported) Divalproex Sodium 500 Mg Tablet.dr, 500 MG PO BID, (Reported) Epinephrine 0.3 Mg/0.3/Syringe Pen.injctr, 0.3 MG IM ONCE Prescribed by: STEFANY COLBERT on 07/26/12 1657 Melatonin/Pyridoxine Hcl (B6) 1 Each Tab.mphase, 1 EACH PO HS, (Reported) Mometasone Furoate 17 Gm [place], 1 SPRAY NS UD, (Reported) Montelukast Sodium 10 Mg Tablet, 1 TAB PO DAILY, (Reported) Multivitamin 1 Each Tablet, 1 EACH PO DAILY, (Reported) Multivits,Therap W-Fe,Hematin 1 Each Tablet, 1 EACH PO BID, (Reported) Pantoprazole Sodium 20 Mg Tablet.dr, 40 MG PO DAILY Prescribed by: CHUY PIÑA on 08/28/14 1106 Sertraline Hcl 100 Mg Tab, 100 MG PO DAILY, (Reported) Sumatriptan Succinate 50 Mg Tab, 25 MG PO UD, (Reported) Tramadol Hcl 50 Mg Tablet, 50 MG PO PRN, (Reported) Tramadol Hcl 50 Mg Tablet, 50 MG PO Q4H PRN for PAIN Prescribed by: SHANTELLE PEREIRA on 02/24/14 2325 Tretinoin 15 Gm Gel, 15 GM TP DAILY, (Reported) Patient Home Medication List Home Medication List Reviewed: Yes Review of Systems Review of Systems Constitutional: see HPI, diaphoresis Respiratory: No Symptoms Reported Cardiovascular: See HPI Gastrointestinal: See HPI Genitourinary: No Symptoms Reported Musculoskeletal: no symptoms reported Skin: no symptoms reported Psychiatric/Neurological: See HPI Endocrine: No Symptoms Reported Hematologic/Lymphatic: No Symptoms Reported Past Oetavqb-Jkqbvg-Akjyzg Hx Patient Social History Alcohol Use: Rarely Uses Recreational Drug Use: No Smoking Status: Former Smoker (1 PPD, QUIT SMOKING IN 2017, NOW CHEWS) Type Used: Cigarettes, Smokeless Tobacco Recent Hopitalizations: No Immunizations Up To Date Date of Influenza Vaccine: Jun 28, 2014 Seasonal Allergies Seasonal Allergies: Yes Past Medical History Surgeries: Yes (BILATERAL KNEE SCOPES; COLONOSCOPIES) Orthopedic Respiratory: Yes Asthma Cardiac: No Neurological: Yes Developmental Disorder, Headaches /Migraines Reproductive Disorders: No Gastrointestinal: Yes Gastroesophageal Reflux Musculoskeletal: Yes (BILATERAL KNEE SCOPES) Endocrine: No HEENT: No Cancer: No Psychosocial: Yes (MR) Depression Integumentary: No Blood Disorders: No Physical Exam Vital Signs Vital Signs - First Documented 12/11/18 18:30 Temp 97.9 Pulse 82 Resp 18 B/P (MAP) 143/105 (118) Pulse Ox 17 O2 Delivery Room Air Capillary Refill : Height, Weight, BMI Height: 6'6.00" Weight: 260lbs. oz. 117.524390xv; BMI Method:Stated General Appearance: No Apparent Distress, WD/WN, Other (SMILING, TALKATIVE, DOES NOT APPEAR TO BE IN ANY DISCOMFORT OR DISTRESS) Neck: Normal Inspection; No Carotid Bruit, No JVD Respiratory: Normal Breath Sounds, No Accessory Muscle Use, No Respiratory Distress Cardiovascular: Regular Rate, Rhythm, No Edema, No JVD, No Murmur, Normal Peripheral Pulses Gastrointestinal: Soft Extremity: Normal Inspection, No Pedal Edema Neurologic/Psychiatric: Alert, Oriented x3, No Motor/Sensory Deficits, Normal Mood/Affect, pharmaceutical worker II-XII Norm as Tested Skin: Normal Color, Warm/Dry Progress/Results/Core Measures Results/Orders Lab Results Laboratory Tests Test 12/11/18 18:34 Range/Units White Blood Count 6.7 4.3-11.0 10^3/uL Red Blood Count 5.20 4.35-5.85 10^6/uL Hemoglobin 16.2 13.3-17.7 G/DL Hematocrit 45 40-54 % Mean Corpuscular Volume 86 80-99 FL Mean Corpuscular Hemoglobin 31 25-34 PG Mean Corpuscular Hemoglobin Concent 36 32-36 G/DL Red Cell Distribution Width 12.3 10.0-14.5 % Platelet Count 246 130-400 10^3/uL Mean Platelet Volume 9.5 7.4-10.4 FL Neutrophils (%) (Auto) 67 42-75 % Lymphocytes (%) (Auto) 22 12-44 % Monocytes (%) (Auto) 10 0-12 % Eosinophils (%) (Auto) 1 0-10 % Basophils (%) (Auto) 0 0-10 % Neutrophils # (Auto) 4.5 1.8-7.8 X 10^3 Lymphocytes # (Auto) 1.5 1.0-4.0 X 10^3 Monocytes # (Auto) 0.7 0.0-1.0 X 10^3 Eosinophils # (Auto) 0.0 0.0-0.3 10^3/uL Basophils # (Auto) 0.0 0.0-0.1 10^3/uL Prothrombin Time 13.3 12.2-14.7 SEC INR Comment 1.0 0.8-1.4 Activated Partial Thromboplast Time 27 24-35 SEC Sodium Level 140 135-145 MMOL/L Potassium Level 3.6 3.6-5.0 MMOL/L Chloride Level 103 98-107 MMOL/L Carbon Dioxide Level 27 21-32 MMOL/L Anion Gap 10 5-14 MMOL/L Blood Urea Nitrogen 11 7-18 MG/DL Creatinine 1.15 0.60-1.30 MG/DL Estimat Glomerular Filtration Rate > 60 BUN/Creatinine Ratio 10 Glucose Level 103 70-105 MG/DL Calcium Level 9.7 8.5-10.1 MG/DL Corrected Calcium 8.5-10.1 MG/DL Magnesium Level 3.0 H 1.8-2.4 MG/DL Total Bilirubin 0.8 0.1-1.0 MG/DL Aspartate Amino Transf (AST/SGOT) 31 5-34 U/L Alanine Aminotransferase (ALT/SGPT) 66 H 0-55 U/L Alkaline Phosphatase 69 40-136 U/L Total Creatine Kinase 84 30-200 U/L Creatine Kinase MB 0.4 <6.6 NG/ML Myoglobin 38.1 10.0-92.0 NG/ML Troponin I < 0.028 <0.028 NG/ML B-Type Natriuretic Peptide < 10.0 <100.0 PG/ML Total Protein 7.8 6.4-8.2 GM/DL Albumin 4.8 H 3.2-4.5 GM/DL Amylase Level 76 25-125 U/L Lipase 25 8-78 U/L My Orders Orders - MARY BADLERAS DO Cbc With Automated Diff (12/11/18 18:37) Magnesium (12/11/18 18:37) Chest 1 View, Ap/Pa Only (12/11/18 18:37) Ekg Tracing (12/11/18 18:37) Cardiac Profile 1 (12/11/18 18:37) Comprehensive Metabolic Panel (12/11/18 18:37) Myoglobin Serum (12/11/18 18:37) Protime With Inr (12/11/18 18:37) Partial Thromboplastin Time (12/11/18 18:37) O2 (12/11/18 18:37) Monitor-Rhythm Ecg Trace Only (12/11/18 18:37) Lipid Panel (12/12/18 06:00) Saline Lock/Iv-Start (12/11/18 18:37) Creatine Kinase (12/11/18 18:37) Creatine Kinase Mb (12/11/18 18:37) Lipase (12/11/18 18:37) Amylase (12/11/18 18:37) BNP (12/11/18 18:37) Antacid Suspension (Mylanta Suspension (12/11/18 18:45) Lidocaine 2% Viscous 15 Ml (Xylocaine Vi (12/11/18 18:45) Medications Given in ED Current Medications Medications Dose Ordered Sig/Humberto Route Start Time Stop Time Status Last Admin Dose Admin Al Hydrox/Mg Hydrox/Simethicone 30 ml ONCE ONCE PO 12/11/18 18:45 12/11/18 18:47 DC 12/11/18 18:53 30 ML Lidocaine HCl 5 ml ONCE ONCE PO 12/11/18 18:45 12/11/18 18:47 DC 12/11/18 18:53 5 ML Vital Signs/I&O 12/11/18 12/11/18 18:30 18:30 Temp 97.9 Pulse 82 Resp 18 B/P (MAP) 143/105 (118) Pulse Ox 17 O2 Delivery Room Air Progress Progress Note : Progress Note NO SYMPTOMS DURING ER STAY PT ANXIOUS TO GO HOME DISCUSSED WITH PT AND PARENTS ABOUT POSSIBLE NEED FOR FURTHER TESTING SUCH EGD AND/OR ULTRASOUND IF SYMPTOMS PERSIST Initial ECG Impression Date: Dec 11, 2018 Initial ECG Impression Time: 18:33 Initial ECG Rate: 75 Initial ECG Rhythm: Normal Sinus Diagnostic Imaging Comments CXR--NO ACUTE PROCESS, PER RADIOLOGIST REPORT @ 1855 Reviewed: Reviewed by Me Departure Impression Primary Impression: Chest pain Additional Impression: Gastroesophageal reflux disease Disposition: 01 HOME, SELF-CARE Condition: Improved Departure-Patient Inst. Referrals: FABIEN ANGUIANO MD (PCP/Family) Primary Care Physician Patient Instructions: Chest Pain (DC), Acid Reflux (Gastroesophageal Reflux Disease), Adult (DC), Chest Pain That Is Not Caused by the Heart (DC) Add. Discharge Instructions: BLAND DIET--NO SPICY, GREASY/HIGH FAT OR ACIDIC FOOD OR DRINKS CONTINUE YOUR REGULAR MEDICATIONS PRESCRIBED FOLLOW UP WITH DR. ANGUIANO THIS WEEK FOR FURTHER CARE All discharge instructions reviewed with patient and/or family. Voiced understanding. Scripts Sucralfate (Carafate) 1 Gm Tablet 1 GM PO QIDACHS, #60 TAB Prov: MARY BALDERAS DO 12/11/18 MARY BALDERAS DO Dec 11, 2018 18:46
[2018-12-11 18:51] LABS: BASOPHILS % (AUTO) 0 % (0-10); EOSINOPHILS % (AUTO) 1 % (0-10); HEMATOCRIT 45 % (40-54); HEMOGLOBIN 16.2 G/DL (13.3-17.7); LYMPHOCYTES # (AUTO) 1.5 X 10^3 (1.0-4.0); LYMPHOCYTES % (AUTO) 22 % (12-44); MEAN CORPUSCULAR HEMOGLOBIN 31 PG (25-34); MEAN CORPUSCULAR HGB CONC 36 G/DL (32-36); MEAN CORPUSCULAR VOLUME 86 FL (80-99); MEAN PLATELET VOLUME 9.5 FL (7.4-10.4); MONOCYTES # (AUTO) 0.7 X 10^3 (0.0-1.0); MONOCYTES % (AUTO) 10 % (0-12); NEUTROPHILS # (AUTO) 4.5 X 10^3 (1.8-7.8); NEUTROPHILS % (AUTO) 67 % (42-75); PLATELET COUNT 246 10^3/uL (130-400); RED CELL DISTRIBUTION WIDTH 12.3 % (10.0-14.5); WHITE BLOOD COUNT 6.7 10^3/uL (4.3-11.0)
--- NOTE | 2018-12-11 18:52 | Diagnostic Imaging Report ---
CHEST 1 VIEW, AP/PA ONLY Indication: Chest pain Comparison: 09/01/2018 Findings: No focal airspace disease in the visualized lungs. Please note that the posterior lower lobes are poorly evaluated by portable radiography. No pleural effusion or pneumothorax. Normal cardiomediastinal silhouette. Impression: No acute cardiopulmonary process by portable radiography. Dictated by: Dictated on workstation # [id number]
--- NOTE | 2018-12-11 19:00 | NUR ---
SEE LIST FOR CURRENT MEDS
[2018-12-11 19:04] LABS: ALANINE AMINOTRANSFERASE 66 U/L (0-55); ALBUMIN 4.8 GM/DL (3.2-4.5); ALKALINE PHOSPHATASE 69 U/L (40-136); AMYLASE 76 U/L (25-125); BILIRUBIN,TOTAL 0.8 MG/DL (0.1-1.0); BUN/CREATININE RATIO 10; CALCIUM 9.7 MG/DL (8.5-10.1); CARBON DIOXIDE 27 MMOL/L (21-32); CHLORIDE 103 MMOL/L (98-107); CREATINE KINASE 84 U/L (30-200); CREATININE SERUM 1.15 MG/DL (0.60-1.30); GFR ESTIMATED > 60; GLUCOSE 103 MG/DL (70-105); LIPASE 25 U/L (8-78); POTASSIUM 3.6 MMOL/L (3.6-5.0); PROTHROMBIN TIME PATIENT 13.3 SEC (12.2-14.7); SODIUM 140 MMOL/L (135-145); TOTAL PROTEIN 7.8 GM/DL (6.4-8.2)
[2018-12-11 19:11] LABS: CREATINE KINASE MB 0.4 NG/ML (<6.6); MYOGLOBIN SERUM 38.1 NG/ML (10.0-92.0)
[2018-12-11] MEDS ORDERED: SUCR1TAB36 PO (19:50)
[2018-12-11 20:05] VITALS: BP 122/95
== END 2018-12-11 20:12 | disposition home or self-care (01) ==
LOC: EDUNIT# 18:31 → ER 18:32
DX: K21.9 Gastro-esophageal reflux disease without esophagitis (principal); R07.9 Chest pain, unspecified; J45.909 Unspecified asthma, uncomplicated; G43.909 Migraine, unspecified, not intractable, without status migrainosus; F32.9 Major depressive disorder, single episode, unspecified; Z88.5 Allergy status to narcotic agent; Z88.2 Allergy status to sulfonamides; Z91.041 Radiographic dye allergy status; Z79.51 Long term (current) use of inhaled steroids; Z87.891 Personal history of nicotine dependence; Z98.890 Other specified postprocedural states
CPT/HCPCS: 36415; 71045; 80053; 82150; 82550; 82553; 83690; 83735; 83874; 83880; 84484; 85025; 85610; 85730; 93005; 93041

== ENCOUNTER → 2020-09-01 | Outpatient (CLI) | payer MEDICARE, MEDICAID ==
[~2020-09-01] MED LIST changes: +CATHETER FLUSH 10 ML SYR IV PRN; +SUCR1TAB36 PO
--- NOTE | 2020-09-01 12:26 | Diagnostic Imaging Report ---
INDICATION: Right upper quadrant pain. TECHNIQUE: Patient was administered 5.5 mCi technetium 99m Choletec intravenously and imaging over the abdomen was performed. After 60 minutes, patient ingested one can of Ensure and gallbladder ejection fraction was calculated. FINDINGS: Homogeneous uptake of activity by the liver is noted with prompt excretion of activity into the gallbladder and common duct. There is normal passage of activity into the small bowel. Minimal bile gastric reflux is noted. Gallbladder ejection fraction is abnormally low at 19%. Normal values are 35% or greater. IMPRESSION: 1. Patent cystic duct and common bile duct. 2. Low gallbladder ejection fraction of 19%. 3. Mild gastric bile reflux. Dictated by: Dictated on workstation # [id number]
== END ==
LOC: CARD 09:05
PROVIDERS: ATTEND Surgery
DX: R10.11 Right upper quadrant pain (principal); K21.9 Gastro-esophageal reflux disease without esophagitis
CPT/HCPCS: 78227; A9537

== ENCOUNTER 2020-09-19 02:08 | Emergency (ER) | payer MEDICARE, MEDICAID ==
[~2020-09-19] VITALS: Ht 200 cm; Wt 111.0 kg
[~2020-09-19 02:08] MED LIST changes: -CATHETER FLUSH 10 ML SYR IV PRN
[2020-09-19] MEDS ORDERED: ASPIRIN 81 MG CHEW (CHILDREN'S ASA) PO ONE (02:45)
[2020-09-19] MEDS ORDERED: LACTATED RINGERS 1,000 ML IV ONE (02:45)
[2020-09-19] MEDS ORDERED: PANTOPRAZOLE 40 MG (PROTONIX) VIAL IV ONE (02:45)
--- NOTE | 2020-09-19 02:45 | ED Chest Pain ---
General Stated Complaint: STS CP,CHILLS,POST OP GALLBLADDER SURGERY 09-10-20 Source: patient Exam Limitations: no limitations History of Present Illness Date Seen by Provider: Sep 19, 2020 Time Seen by Provider: 02:30 Initial Comments Patient presents ER by private conveyance from home with chief complaint of new onset pain and some chills starting about 11:00 last night, 3-1/2 hours prior to arrival. He did not take anything for it. He does have a history of GERD and 9 days ago had his gallbladder out by Dr. Phillips. He has not been having symptoms until now. He says he only needed Tylenol 3 for the first 2 days. He is not having any nausea diarrhea or constipation. He takes medication for Asperger's but does not have any other significant medical history. He is not on any blood thinners and has had no blood in his stool. He has had no sick contacts and spends most of his time at home staying away from people anyways. He denies cough, fever, shortness of air but says the pain will start in his low mid chest epigastric region and radiate out towards his umbilicus. He says he is feeling some pain on deep inspiration and sutures of his abdomen which she has not felt before tonight. Allergies and Home Medications Allergies Coded Allergies: hydrocodone (Verified Allergy, Intermediate, RASH, 02/24/14) Sulfisoxazole Acetyl (Verified Allergy, Unknown, 02/24/14) aspirin (Verified Allergy, Unknown, 09/19/20) erythromycin ethylsuccinate (Verified Allergy, Unknown, 02/24/14) Sulfa (Sulfonamide Antibiotics) (Verified Adverse Reaction, Mild, 1 ) Home Medications Benzonatate 100 Mg Capsule, 100 MG PO Q4H, (Reported) Budesonide/Formoterol Fumarate 10.2 Gm Hfa.aer.ad, 2 PUFF IH BID, (Reported) Cetirizine Hcl 10 Mg Capsule, 10 MG PO DAILY, (Reported) Cholestyramine/Sucrose 378 Gm Powder, 378 GM PO PRN, (Reported) Clonazepam 1 Mg Tablet, 1 EACH PO BID, (Reported) Cranberry Fruit 450 Mg Tablet, 450 MG PO HS, (Reported) Divalproex Sodium 500 Mg Tablet.dr, 500 MG PO BID, (Reported) Epinephrine 0.3 Mg/0.3/Syringe Pen.injctr, 0.3 MG IM ONCE Prescribed by: STEFANY COLBERT on 07/26/12 1657 Melatonin/Pyridoxine Hcl (B6) 1 Each Tab.mphase, 1 EACH PO HS, (Reported) Mometasone Furoate 17 Gm [place], 1 SPRAY NS UD, (Reported) Montelukast Sodium 10 Mg Tablet, 1 TAB PO DAILY, (Reported) Multivitamin 1 Each Tablet, 1 EACH PO DAILY, (Reported) Multivits,Therap W-Fe,Hematin 1 Each Tablet, 1 EACH PO BID, (Reported) Pantoprazole Sodium 20 Mg Tablet.dr, 40 MG PO DAILY Prescribed by: CHUY PIÑA on 08/28/14 1106 Sertraline Hcl 100 Mg Tab, 100 MG PO DAILY, (Reported) Sucralfate 1 Gm Tablet, 1 GM PO QIDACHS Prescribed by: MARY BALDERAS on 12/11/181949 Sumatriptan Succinate 50 Mg Tab, 25 MG PO UD, (Reported) Tramadol Hcl 50 Mg Tablet, 50 MG PO PRN, (Reported) Tramadol Hcl 50 Mg Tablet, 50 MG PO Q4H PRN for PAIN Prescribed by: SHANTELLE PEREIRA on 02/24/14 2325 Tretinoin 15 Gm Gel, 15 GM TP DAILY, (Reported) Patient Home Medication List Home Medication List Reviewed: Yes Review of Systems Review of Systems Constitutional: chills; No diaphoresis, No fever, No malaise EENTM: No Blurred Vision, No Double Vision Respiratory: Denies Cough, Denies Shortness of Air Cardiovascular: Chest Pain (Epigastric region); Denies Lightheadedness Gastrointestinal: See HPI, Abdominal Pain; Denies Constipated, Denies Diarrhea, Denies Nausea Genitourinary: Denies Burning, Denies Discharge Musculoskeletal: No back pain, No joint pain Psychiatric/Neurological: See HPI; Denies Anxiety, Denies Depressed All Other Systems Reviewed Negative Unless Noted: Yes Past Qcxtzld-Pairwx-Ftvixw Hx Patient Social History Alcohol Use: Denies Use Recreational Drug Use: No Smoking Status: Current Everyday Smoker Type Used: Cigarettes, Smokeless Tobacco Recent Foreign Travel: No Contact w/Someone Who Travel: No Recent Hopitalizations: No Immunizations Up To Date Date of Influenza Vaccine: Jun 28, 2014 Seasonal Allergies Seasonal Allergies: Yes Past Medical History Surgeries: Yes (BILATERAL KNEE SCOPES; COLONOSCOPIES) Orthopedic Respiratory: Yes Asthma Cardiac: No Neurological: Yes Developmental Disorder, Headaches /Migraines Reproductive Disorders: No Gastrointestinal: Yes Gastroesophageal Reflux Musculoskeletal: Yes (BILATERAL KNEE SCOPES) Endocrine: No HEENT: No Cancer: No Psychosocial: Yes (MR) Depression Integumentary: No Blood Disorders: No Physical Exam Vital Signs Vital Signs - First Documented 09/19/20 02:25 Temp 37.4 Pulse 99 Resp 16 B/P (MAP) 137/86 (103) O2 Delivery Room Air Capillary Refill : Height, Weight, BMI Height: 6'5.00" Weight: 255lbs. oz. 115.478364us; BMI Method:Stated General Appearance: WD/WN, Mild Distress HEENT: PERRL/EOMI, Pharynx Normal, Moist Mucous Membranes Neck: Full Range of Motion, Normal Inspection Respiratory: Chest Non Tender, Lungs Clear, Normal Breath Sounds, No Accessory Muscle Use, No Respiratory Distress Cardiovascular: Regular Rate, Rhythm, No Edema, Normal Peripheral Pulses Gastrointestinal: Normal Bowel Sounds, Non Tender, Soft Extremity: Normal Capillary Refill, Normal Inspection, No Pedal Edema Neurologic/Psychiatric: Alert, Oriented x3, Normal Mood/Affect Skin: Normal Color, Warm/Dry, Other (Surgical wounds are healing very well, clean, dry and intact without erythema, induration or fluctuance around them.) Progress/Results/Core Measures Results/Orders Lab Results Laboratory Tests Test 09/19/20 02:50 09/19/20 03:15 Range/Units White Blood Count 14.5 H 4.3-11.0 10^3/uL Red Blood Count 5.12 4.30-5.52 10^6/uL Hemoglobin 15.6 13.3-17.7 g/dL Hematocrit 46 40-54 % Mean Corpuscular Volume 90 80-99 fL Mean Corpuscular Hemoglobin 31 25-34 pg Mean Corpuscular Hemoglobin Concent 34 32-36 g/dL Red Cell Distribution Width 11.9 10.0-14.5 % Platelet Count 253 130-400 10^3/uL Mean Platelet Volume 9.3 9.0-12.2 fL Immature Granulocyte % (Auto) 0 % Neutrophils (%) (Auto) 79 H 42-75 % Lymphocytes (%) (Auto) 13 12-44 % Monocytes (%) (Auto) 6 0-12 % Eosinophils (%) (Auto) 1 0-10 % Basophils (%) (Auto) 0 0-10 % Neutrophils # (Auto) 11.5 H 1.8-7.8 10^3/uL Lymphocytes # (Auto) 1.9 1.0-4.0 10^3/uL Monocytes # (Auto) 0.9 0.0-1.0 10^3/uL Eosinophils # (Auto) 0.1 0.0-0.3 10^3/uL Basophils # (Auto) 0.1 0.0-0.1 10^3/uL Immature Granulocyte # (Auto) 0.0 0.0-0.1 10^3/uL Prothrombin Time 13.4 12.2-14.7 SEC INR Comment 1.0 0.8-1.4 Activated Partial Thromboplast Time 27 24-35 SEC D-Dimer 0.64 H 0.00-0.49 UG/ML Sodium Level 140 135-145 MMOL/L Potassium Level 3.6 3.6-5.0 MMOL/L Chloride Level 104 98-107 MMOL/L Carbon Dioxide Level 25 21-32 MMOL/L Anion Gap 11 5-14 MMOL/L Blood Urea Nitrogen 12 7-18 MG/DL Creatinine 1.18 0.60-1.30 MG/DL Estimat Glomerular Filtration Rate > 60 BUN/Creatinine Ratio 10 Glucose Level 120 H 70-105 MG/DL Calcium Level 9.4 8.5-10.1 MG/DL Corrected Calcium 8.5-10.1 MG/DL Magnesium Level 2.0 1.6-2.4 MG/DL Total Bilirubin 0.7 0.1-1.0 MG/DL Aspartate Amino Transf (AST/SGOT) 24 5-34 U/L Alanine Aminotransferase (ALT/SGPT) 155 H 0-55 U/L Alkaline Phosphatase 97 40-136 U/L Myoglobin 27.7 10.0-92.0 NG/ML Troponin I < 0.028 <0.028 NG/ML C-Reactive Protein High Sensitivity 0.45 0.00-0.50 MG/DL Total Protein 7.6 6.4-8.2 GM/DL Albumin 4.6 H 3.2-4.5 GM/DL Lipase 67 8-78 U/L Coronavirus 2019 ([facility]) Negative Negative Micro Results Microbiology 09/19/20 Influenza Types A,B Antigen (AMBER) - Final, Complete My Orders Orders - MARIBEL PACKER Ed Iv/Invasive Line Start (09/19/20 02:41) Lactated Ringers (Lr 1000 Ml Iv Solution (09/19/20 02:45) Cbc With Automated Diff (09/19/20 02:41) Comprehensive Metabolic Panel (09/19/20 02:41) Hs C Reactive Protein (09/19/20 02:41) Lipase (09/19/20 02:41) Covid 19 Inhouse Test (09/19/20 02:41) Influenza A And B Antigens (09/19/20 02:41) Magnesium (09/19/20 02:41) Chest 1 View, Ap/Pa Only (09/19/20 02:41) Ekg Tracing (09/19/20 02:41) Myoglobin Serum (09/19/20 02:41) Protime With Inr (09/19/20 02:41) Partial Thromboplastin Time (09/19/20 02:41) O2 (09/19/20 02:41) Monitor-Rhythm Ecg Trace Only (09/19/20 02:41) Ed Iv/Invasive Line Start (09/19/20 02:41) Troponin I (09/19/20 02:41) Aspirin Chewable Tablet (Baby Aspirin Ch (09/19/20 02:45) Pantoprazole Injection (Protonix Injecti (09/19/20 02:45) Lidocaine 2% Viscous 15 Ml (Xylocaine Vi (09/19/20 03:00) Antacid Suspension (Mylanta Suspension (09/19/20 03:00) Fibrin Degradation Products (09/19/20 02:50) Ua Culture If Indicated (09/19/20 03:32) Medications Given in ED Current Medications Medications Dose Ordered Sig/Humberto Route Start Time Stop Time Status Last Admin Dose Admin Al Hydrox/Mg Hydrox/Simethicone 30 ml ONCE ONCE PO 09/19/20 03:00 09/19/20 03:01 DC 09/19/20 02:59 30 ML Lactated Ringer's 1,000 ml @ 0 mls/hr Q0M ONCE IV 09/19/20 02:45 09/19/20 02:47 DC 12/25/20 02:59 999 MLS/HR Lidocaine HCl 15 ml ONCE ONCE PO 09/19/20 03:00 09/19/20 03:01 DC 09/19/20 02:59 15 ML Pantoprazole 40 mg ONCE ONCE IV 09/19/20 02:45 09/19/20 02:47 DC 09/19/20 02:59 40 MG Vital Signs/I&O 09/19/20 02:25 Temp 37.4 Pulse 99 Resp 16 B/P (MAP) 137/86 (103) O2 Delivery Room Air Progress Progress Note : Time: 02:52 Progress Note GERD, postop cholecystectomy pain, pericarditis etc. Plan to go ahead and get him swabbed for COVID-19 and influenza and get a chest x-ray. We will give him 325 mg of aspirin and a GI cocktail to see if this helps with his symptoms. Offered to speak to the patient's father and the patient declined stating he has a phone and will update him himself. Initial ECG Impression Date: Sep 19, 2020 Initial ECG Impression Time: 02:33 Initial ECG Rate: 90 Initial ECG Rhythm: Normal Sinus Initial ECG Intervals: Normal Initial ECG Impression: Normal Initial ECG Comparisson: No Previous ECG Available Comment Normal sinus rhythm without clinically relevant ST elevation or depression. Diagnostic Imaging Diagonstic Imaging: Xray Plain Films/CT/US/NM/MRI: chest Reviewed: Reviewed by Me Departure Impression Primary Impression: Post-cholecystectomy syndrome Additional Impression: GERD (gastroesophageal reflux disease) Qualified Codes: K21.0 - Gastro-esophageal reflux disease with esophagitis Disposition: HOME, SELF-CARE Condition: Improved Departure-Patient Inst. Decision time for Depature: 03:48 Referrals: JULIUS PHILLIPS RACHEL L MD (PCP/Family) Primary Care Physician Patient Instructions: Acid Reflux and Gastroesophageal Reflux Disease in Adults Add. Discharge Instructions: I think you have a combination of acid reflux that was causing your esophagitis/chest pain. Pantoprazole 40 mg daily for the next 2 weeks. Tums, Rolaids, antiacids as necessary for breakthrough pain. Your other problem appears to be related to possibly your diet and bloating. Eat smaller meals and avoid things that are greasy such as red meat, dairy etc. Simethicone 1 tablet every 4 hours as necessary for bloating and gas. Return to the ER if you are having significant increase in pain, nausea or other worrisome symptoms. Scripts Simethicone (Simethicone) 125 Mg Tab.chew 125 MG PO Q4H PRN for GAS, #20 TAB 0 Refills Prov: MARIBEL PACKER 09/19/20 Pantoprazole Sodium (Pantoprazole Sodium) 40 Mg Tablet.dr 40 MG PO DAILY for 14 Days, #14 TAB 0 Refills Prov: MARIBEL PACKER 09/19/20 MARIBEL PACKER Sep 19, 2020 02:45
--- NOTE | 2020-09-19 02:46 | NUR ---
PT REFUSES ASA STATING HE IS ALLERGIC AND CANNOT TAKE IT, UNKNOWN REACTION JUST STATES, "MY MOM JUST TOLD ME NOT TO TAKE IT". MEDICATION ADDED TO ALLERGY LIST.
[2020-09-19] MEDS ORDERED: ANTACID SUSP 30 ML UDC (MYLANTA) PO ONE (03:00)
[2020-09-19] MEDS ORDERED: LIDOCAINE 2% VISCOUS 15 ML UDC PO ONE (03:00)
[2020-09-19 03:02] LABS: BASOPHILS # (AUTO) 0.1 10^3/uL (0.0-0.1); BASOPHILS % (AUTO) 0 % (0-10); EOSINOPHILS # (AUTO) 0.1 10^3/uL (0.0-0.3); EOSINOPHILS % (AUTO) 1 % (0-10); HEMATOCRIT 46 % (40-54); HEMOGLOBIN 15.6 g/dL (13.3-17.7); LYMPHOCYTES # (AUTO) 1.9 10^3/uL (1.0-4.0); LYMPHOCYTES % (AUTO) 13 % (12-44); MEAN CORPUSCULAR HEMOGLOBIN 31 pg (25-34); MEAN CORPUSCULAR HGB CONC 34 g/dL (32-36); MEAN CORPUSCULAR VOLUME 90 fL (80-99); MEAN PLATELET VOLUME 9.3 fL (9.0-12.2); MONOCYTES # (AUTO) 0.9 10^3/uL (0.0-1.0); MONOCYTES % (AUTO) 6 % (0-12); NEUTROPHILS # (AUTO) 11.5 10^3/uL (1.8-7.8); NEUTROPHILS % (AUTO) 79 % (42-75); PLATELET COUNT 253 10^3/uL (130-400); WHITE BLOOD COUNT 14.5 10^3/uL (4.3-11.0)
[2020-09-19 03:20] LABS: ALBUMIN 4.6 GM/DL (3.2-4.5); CHLORIDE 104 MMOL/L (98-107); POTASSIUM 3.6 MMOL/L (3.6-5.0); SODIUM 140 MMOL/L (135-145)
[2020-09-19 03:21] LABS: CALCIUM 9.4 MG/DL (8.5-10.1)
[2020-09-19 03:22] LABS: FIBRIN DEGRADATION PRODUCTS 0.64 UG/ML (0.00-0.49); GLUCOSE 120 MG/DL (70-105); PROTHROMBIN TIME PATIENT 13.4 SEC (12.2-14.7); TOTAL PROTEIN 7.6 GM/DL (6.4-8.2)
[2020-09-19 03:23] LABS: CARBON DIOXIDE 25 MMOL/L (21-32)
[2020-09-19 03:24] LABS: BILIRUBIN,TOTAL 0.7 MG/DL (0.1-1.0)
[2020-09-19 03:26] LABS: ALKALINE PHOSPHATASE 97 U/L (40-136); CREATININE SERUM 1.18 MG/DL (0.60-1.30); GFR ESTIMATED > 60
[2020-09-19 03:27] LABS: BUN/CREATININE RATIO 10
[2020-09-19 03:29] LABS: ALANINE AMINOTRANSFERASE 155 U/L (0-55); LIPASE 67 U/L (8-78)
[2020-09-19 03:39] LABS: BILIRUBIN,URINE NEGATIVE (NEGATIVE); CLARITY,URINE CLEAR; COLOR,URINE YELLOW; GLUCOSE, URINE (UA) NEGATIVE (NEGATIVE); KETONES,URINE NEGATIVE (NEGATIVE); LEUKOCYTE ESTERASE ,URINE NEGATIVE (NEGATIVE); NITRITE,URINE NEGATIVE (NEGATIVE); PH,URINE 5.5 (5-9); PROTEIN,URINE NEGATIVE (NEGATIVE)
[2020-09-19 03:51] LABS: BACTERIA,URINE NEGATIVE /HPF; SQUAMOUS EPITHELIAL CELL,UR 0-2 /HPF
[2020-09-19] MEDS ORDERED: SIME125T50 PO (03:53)
[2020-09-19] MEDS ORDERED: PANT40TA52 PO (03:53)
[2020-09-19 04:03] VITALS: BP 132/83
== END 2020-09-19 04:03 | disposition home or self-care (01) ==
LOC: EDUNIT# 02:08 → ER 02:11
DX: K91.5 Postcholecystectomy syndrome (principal); K21.9 Gastro-esophageal reflux disease without esophagitis; J45.909 Unspecified asthma, uncomplicated; G43.909 Migraine, unspecified, not intractable, without status migrainosus; F32.9 Major depressive disorder, single episode, unspecified; F17.210 Nicotine dependence, cigarettes, uncomplicated; F17.290 Nicotine dependence, other tobacco product, uncomplicated; Z88.1 Allergy status to other antibiotic agents; Z88.2 Allergy status to sulfonamides; Z88.5 Allergy status to narcotic agent; Z88.8 Allergy status to other drugs, medicaments and biological substances; Z20.828 Contact with and (suspected) exposure to other viral communicable diseases
CPT/HCPCS: 80053; 81000; 83690; 83735; 83874; 84484; 85025; 85379; 85610; 85730; 86141; 87804; 93041; 99284; U0002; 36415; 87635

== ENCOUNTER → 2023-02-17 | Outpatient (CLI) | payer MEDICARE, MEDICAID ==
[~2023-02-17] MED LIST changes: +PANT40TA52 PO; +SIME125T50 PO
--- NOTE | 2023-02-17 16:45 | Diagnostic Imaging Report ---
EXAMINATION: Lumbar spine radiographs, 2 views. COMPARISON: None. HISTORY: 37-year-old male, low back pain. FINDINGS: There are five lumbar-type vertebral bodies. There is no identified compression deformity or fracture. The disc heights are fairly well preserved. The facet joints are unremarkable. Unremarkable appearance of the sacroiliac joints. IMPRESSION: Unremarkable radiographs of the lumbar spine. Dictated by: Dictated on workstation # [id number]
== END ==
LOC: RAD 14:26
PROVIDERS: ATTEND Family Medicine
DX: M54.50 Low back pain, unspecified (principal)
CPT/HCPCS: 72100

== ENCOUNTER → 2023-08-26 | Outpatient (CLI) | payer MEDICARE, MEDICAID ==
--- NOTE | 2023-08-26 11:44 | Diagnostic Imaging Report ---
EXAMINATION: Left elbow radiograph TECHNIQUE: AP, oblique, and lateral views of the left elbow pain. HISTORY: LT ELBOW PAIN COMPARISON: None available. FINDINGS: Alignment is normal. No fracture is seen. Joint spaces are normal. IMPRESSION: 1. No fracture. Dictated by: Dictated on workstation # [id number]
== END ==
LOC: RAD 09:18
PROVIDERS: ATTEND Family Medicine
DX: M25.522 Pain in left elbow (principal)
CPT/HCPCS: 73080